=== PATIENT | female | born 1950 | race Caucasian/White ===

== ENCOUNTER 2017-08-28 13:00 | Outpatient (RCR) | payer MEDICARE, SELFPAY ==
--- NOTE | 2017-07-16 14:00 | HP.PTEVAL_ITS ---
Patient's Visit Information ANGEL BARBOZA is a 66 year old F referred to Physical Therapy by Chandu Ortiz MD with a diagnosis of s/p L anterior approach HAYLIE 07/10. Date of Evaluation: 07/16/17 Physical Therapist: HENRIQUE TriplettT, OC - Visit Plan Frequency: 1x/Week Duration: 4-6 Weeks Plan: weekly(pt choice due to copay) to progress HEP(NWB/flex next session), then WB then fucntional. Monitor edema, ROM, flexibility, gait. - Subjective Subjective: L HAYLIE 07/10/17. R one done in March. Pain in L hip has been 4- 6/10 and fairly constant. Has tried not to use pain pills but on them more lately which has helped. Using walker at times. But dragging it around alot also. Sleeping is good in chair. Not in bed yet, gets back pain with bed. HEP : SLR, HS. No painnful problem. Basic ADLs are done by herself. Has steps with railing and did them OK today with rail. Spends time taking care of hubby. - Pain L hip anterior lateral Pain Intensity (Out of 10): 4 Pain Intensity Range: 4, 6 - Objective Walks with walker I PWB L. Walks without walker I. short steps, pelvis rotates back to the right. Steps reciprocal but sore on L ascending and descending, recommended using L. Transfers are I and within precauiton( anterior approach. Skin anteriorly around incision is hard and edematous but no tender. - homans B. AROM WFL R hipa nd knee(0-120) and ankle. L ankle WFL , knee 0-117 and hip 100 flexion, 25 abd, neutral extension. strength L hip 3/5 , knee 4/5 adn ankle 4+/5, R side 4+/5 throughout. reflexes 2/3 patella and achilles. Sensation WNL to gross light touch , lateral/anterior L hip slightly numb to touch. LB AROM stiff and very little exension and flexion. HS and quad mod tight. - Goals Goal 1:: Walk into and out of PT without AD I and safely withotu soreness. Goal Time Frame: 4-6 Weeks Goal 2:: Steps reciprocally without pain or railing. Goal Time Frame: 4-6 Weeks Goal 3:: I approp HEP to continue progress I. Goal Time Frame: 4-6 Weeks Goal 4:: Sleep in bed without pain Goal Time Frame: 4-6 Weeks - Rehabilitation Potential Physical Therapy Diagnosis: L anterior approach HAYLIE Rehabilitation Potential: Good - Anticipated Interventions Patient/Client Instruction: Educate patient on: Condition, Plan of Care For the Purpose of:: To decrease pain, To increase ROM, To improve ability of physical actions for home/community/work/leisure, To improve gait and locomotor functions Therapeutic Exercise to Include: Strength training, Flexibilty training, Gait and locomotor training, Passive ROM, Active ROM For the Purpose of:: To decrease pain, To increase ROM, To improve ability of physical actions for home/community/work/leisure, To improve gait and locomotor functions Cryotherapy (ice pack, ice massage): Yes For the Purpose of:: To decrease swelling/inflammation Thank you for the opportunity to evaluate your patient. For Medicare and Medicare HMO plans, please review the plan of care and approve it. It will need to be FAXED BACK to us at [phone] for Medicare purposes. Please let me know if there are questions or concerns regarding this plan of care. Physician Signature: Date:
--- NOTE | 2017-08-07 13:38 | HP.PTREVAL_ITS ---
Chandu Ortiz MD, It has been my pleasure to treat ANGEL BARBOZA over the last 4 visits for s/p L anterior approach HAYLIE 07/10. Please see the progress note below for an update on the physical therapy plan of care! Subjective: Was frustrated as she has had a bad day here and there with pain. feels good after exercises. Forgets tylenol at times and if is on it all day than it really hurts. Pain is inside L hip. Better with pain meds. Then she will have a couple good days until she forgets to take pm tylenol again. Sees doctor in mid August. Sleep is OK, but stiff every morning as she sleeps in chair to be by . Loosens up quickly in am. Bassic ADLs and cleaning are good adn without pain. Washed car without a problem. Hobbies and basement steps are good. Stretches seem to help side of leg Objective/Function: L hip ext rotation 38 degrees vs 50 on R. Tender on piriformis L. Gait is I but JAY is still wide and steps short. Steps are reciprocal without a rail, slightly weaker L vs. R. Transfers on and off table I and rolls I. PT DOING EXCELLENT, STRENGTH AND ROM IMPROVING. WILL CONTINUE TO WORK ON THESE AT HOME. GAIT IS STILL WIDE JAY AND SHORT STEPS UNTIL CUED. Plan Plan: f/u three weeks to check gait and discharge. PT TO WORK ON HEP UNTIL THEN AND CALL IF CONCERNS. Goals Goal 1:: Walk into and out of PT without AD I and safely withotu soreness. Goal Time Frame: 4-6 Weeks Goal Progress: Goal Met Goal 2:: Steps reciprocally without pain or railing. Goal Time Frame: 4-6 Weeks Goal Progress: Goal Met Goal 3:: I approp HEP to continue progress I. Goal Time Frame: 4-6 Weeks Goal Progress: Goal Met Goal 4:: Sleep in bed without pain Goal Time Frame: 4-6 Weeks Anticipated Interventions Patient/Client Instruction: Educate patient on: Condition, Plan of Care For the Purpose of:: To decrease pain, To increase ROM, To improve ability of physical actions for home/community/work/leisure, To improve gait and locomotor functions Therapeutic Exercise to Include: Strength training, Flexibilty training, Gait and locomotor training, Passive ROM, Active ROM For the Purpose of:: To decrease pain, To increase ROM, To improve ability of physical actions for home/community/work/leisure, To improve gait and locomotor functions Cryotherapy (ice pack, ice massage): Yes For the Purpose of:: To decrease swelling/inflammation Please do not hesitate to contact me at [phone] by phone or Fax: if you have questions or concerns regarding this new plan of care! Sincerely, Ted Ackerman, DPT, OC
--- NOTE | 2017-08-28 13:35 | HP.PTDCSUM ---
HP - PT D/C Summary It has been my pleasure to treat ANGEL BARBOZA under orders from Chandu Ortiz MD, for the diagnosis of s/p L anterior approach HAYLIE 07/10 for a total of 5 visit(s). Discharge Date: 08/28/17 Please see the following information for a summary of their discharge status. - Subjective Subjective: Pain is not an issue but not 100% comfortable. Has been up to 4/10 at times with squats or tandem stance. Sleep is good. Still appears stiff when walking. Still not 100% confidence in it. - Pain L hip anterior lateral Pain Intensity (Out of 10): 0 - Objective Objective/Function: ROM L hip doing well, ext limited to about 6 degrees and tightness in anterior is limiting factor. abduction is 20 degrees. ext rotation 45 degrees. Strength is 4+/5 in flexion, and 4/5 in abd and ext. 4+ in knee flex adn ext on L. Steps are reciprocal without railing but needs railing for comfort. Gait is normalizing but still tends wide JAY, tightness in ITB is limiting factor.OVERALL DOING EXCELLENT WITH HEP AND WILL CONTINUE I. - Goals Goal 1:: Walk into and out of PT without AD I and safely withotu soreness. Goal Progress: Goal Met Goal 2:: Steps reciprocally without pain or railing. Goal Progress: Goal Met Goal 3:: I approp HEP to continue progress I. Goal Progress: Goal Met Goal 4:: Sleep in bed without pain Goal Progress: N/A - Plan Plan: D/C TO EHEP - D/C Information Discharge Comments: d/c TO heP. tIGHTNESS IN itb AND HIP FLEXOR ARE MAIN LIMITING FACTORS. If there are questions or concerns regarding this patient's physical therapy, please feel free to call me at [phone]. Thank you for the referral of this patient. Sincerely, Ted Ackerman, DPT, OC
== END 2017-08-28 19:00 | disposition home or self-care (01) ==
LOC: PT 13:00
PROVIDERS: Family Provider Family Medicine; PCP Family Medicine; Visit Provider Specialist
DX: M16.12 Unilateral primary osteoarthritis, left hip (principal)
CPT/HCPCS: 97110; 97162; 97530

== ENCOUNTER → 2018-06-06 06:54 | Outpatient (CLI) | payer MEDICARE, SELFPAY ==
--- NOTE | 2018-06-06 11:07 | STRESSREP ---
Stress Test Report Exercise myocardial perfusion stress test. 67-year-old lady with a history of coronary artery disease previous angioplasty and stenting status post carotid bypass surgery in 2007. Resting EKG demonstrates sinus bradycardia with a rate of 51 bpm normal intervals are noted resting blood pressure is 122/76 mmHg. The patient exercised according to regular Wilson protocol for a total duration of 8 minutes. The maximum heart rate attained was 141 bpm which was 93% of maximum predicted heart rate the maximum workload was 10.1 metabolic equivalents. Patient completed stage III of the Wilson protocol with 2 minutes. At rest there were no ST or T wave changes were noted ischemia at peak exercise no ST or T wave changes were noted which suggested ischemia. Patient had chest discomfort at the beginning of the test and it persisted throughout the test. No other major changes were noted. Myocardial perfusion protocol. 10.9 mCi of technetium 99m sestamibi was injected at rest. The patient exercised according to regular Wilson protocol for 8 minutes attaining 10.1 metabolic equivalents at peak exercise 32.2 mCi of technetium 99m sestamibi was injected stress images were obtained stress and rest images were reconstructed and compared in the short axis vertical long horizontal long axis. Gated images were also obtained Perfusion SPECT analysis: Review of the stress images demonstrate normal uptake of tracer noted in all areas of the myocardium. The resting images similarly demonstrate normal uptake of tracer noted in all areas of the myocardium. No areas of reversibility are noted suggest ischemia and no previous infarct is noted. Gated SPECT analysis: The gated ejection fraction is noted to be 85%. Conclusion: Normal exercise myocardial perfusion stress test at a high workload. Preserved ejection fraction. Mild chest discomfort of questionable significance.
== END ==
PROVIDERS: Family Provider Family Medicine; PCP Family Medicine; Referring Provider Internal Medicine Cardiovascular Disease; Visit Provider Internal Medicine Cardiovascular Disease
DX: I25.10 Atherosclerotic heart disease of native coronary artery without angina pectoris (principal); E78.5 Hyperlipidemia, unspecified; I25.5 Ischemic cardiomyopathy; I10 Essential (primary) hypertension; R07.9 Chest pain, unspecified
CPT/HCPCS: 78452; 93017; A9500; A4216

== ENCOUNTER → 2018-07-21 10:14 | Outpatient (CLI) | payer MEDICARE, SELFPAY ==
[2018-07-03 13:50] VITALS: BMI 28.0
--- NOTE | 2018-07-21 10:18 | RAD_ITS ---
STUDY: X-RAY CHEST REASON FOR EXAM: Female, 67 years old. Pre-op for heart catheter TECHNIQUE: PA and lateral views of the chest. COMPARISON: 06/24/08 FINDINGS: The lungs are clear and expanded. There is no demonstrated pleural abnormality. Sternal cerclage wires and vascular clips are present from a prior sternotomy and coronary artery bypass graft procedure (CABG). Mild cardiomegaly. Normal mediastinum and chuck. Normal visualized pulmonary arteries. Normal visualized aortic arch and descending thoracic aorta. Normal visualized thoracic spine. Normal visualized ribs, clavicles, and shoulders. There is no demonstrated abnormality of the visualized soft tissue structures of the upper abdomen. RAD/Chest PA and Lateral IMPRESSION: No acute cardiopulmonary disease Electronically Signed: Naveen Young DO at 10:44 EST Tel , Service support ,
[2018-07-21 11:55] LABS: Prothrombin Time (Protime)PT. 12.8 SECONDS (11.7-14.9)
[2018-07-21 11:56] LABS: Partial Thromboplast Time 24.7 Seconds (24.1-36.2)
[2018-07-21 12:02] LABS: Absolute Lymphocyte Count 2.92 X10^3/ul (0.83-4.51); Absolute Neutrophil Count 3.8 X10^3/uL (2.0-7.7); Basophil# 0.02 X10^3/uL; Basophil% 0.3 % (0-1); Eosinophils% 2.7 % (0-5); Hematocrit 41.3 % (37-47); Hemoglobin 13.5 g/dl (12.0-15.0); Lymphocyte # 2.92 X10^3/ul (4.0); Lymphocyte % 39.4 % (19-41); Mean Corp Hgb Conc 32.7 g/gl (32-36); Mean Corpuscular Hgb 29.9 pg (27.0-32.0); Mean Corpuscular Volume 91.4 fL (81-99); Mean Platelet Vol. 9.6 fl (6.2-12.0); Monocyte# 0.46 X10^3/uL; Monocyte% 6.2 % (0-10); Neutrophil % 51.3 % (47-70); Platelet Count 265 K/mm3 (150-450); RBC Distribution Width CV 13.1 % (11.6-14.6); RBC Distribution Width SD 43.5 fl (35.1-43.9); Red Blood Count 4.52 M/mm3 (4.2-5.4); White Blood Count 7.4 K/mm3 (4.4-11.0)
[2018-07-21 12:05] LABS: Anion Gap 8 (5-15); BUN 15 mg/dL (7-18); Chloride 109 mmol/L (98-107); Creatinine, Serum 0.75 mg/dL (0.55-1.02); EST Glomerular Filtration Rate 81 mL/min (>60); Est Glom Filt Rate - Afr Amer 98 mL/min (>60); Glucose 102 mg/dL (74-106); Potassium 4.5 mmol/L (3.5-5.1); Sodium Level 143 mmol/L (136-145)
[2018-07-21 12:12] LABS: POSITIVE COUNT NO; POSITIVE DIFFERENTIAL NO; POSITIVE MORPHOLOGY NO
== END ==
PROVIDERS: Family Provider Family Medicine; PCP Family Medicine; Referring Provider Physician Assistant Medical; Visit Provider Physician Assistant Medical
DX: R07.9 Chest pain, unspecified (principal); I25.10 Atherosclerotic heart disease of native coronary artery without angina pectoris; I25.5 Ischemic cardiomyopathy; I10 Essential (primary) hypertension; E78.5 Hyperlipidemia, unspecified; I45.10 Unspecified right bundle-branch block
CPT/HCPCS: 36415; 71046; 80048; 85025; 85610; 85730

== ENCOUNTER 2018-07-28 09:50 | Day surgery (SDC) | payer MEDICARE, SELFPAY ==
[2018-07-03 13:50] VITALS: BMI 28.0
[2018-07-25 10:36] VITALS: BMI 28.0
--- NOTE | 2018-07-28 12:24 | CL.D_ITS ---
Patient Name: ANGEL BARBOZA Study Date: 07/28/2018 Performing: Salo Vasquez MD Ht: 66 inches 167.64 cm : 1950 Wt: 173.99 lbs 78.92 kg Age: 67 Gender: female BSA: 1.89 PROCEDURE(S) PERFORMED NU30-MOM/COR/LV/CABG CLINICAL PROFILE AND INDICATIONS Indications: Worsening Angina Heart Failure: None Stress/Imaging Stress Test w/SPECT MPI: Yes Result: NegativeStress Test with SPECT MPI: Negative CAD Presentations: Stable angina. CONCLUSIONS Non obstructive coronary arteries previously placed stent and bypass grafts are patent RECOMMENDATIONS Risk factor modification Medical therapy DESCRIPTION OF PROCEDURE The patient arrived to the procedure lab. The risks and benefits of the procedure as well as a full d escription of our services here and current unavailability of surgical backup were fully explained to the patient and/or their significant other prior to the catheterization. The Timeout was completed, verifying the correct patient and procedure. The patient's procedural site was prepped and draped in the usual fashion. Local anesthetic was given subcutaneously to right groin region with Lidocaine 2%. Using a modified Seldinger technique, arterial access was obtained via the right femoral artery, a 5 Fr sheath was inserted. Left Coronary Artery selective angiography was performed in multiple views u sing a 5 Fr. JL4 catheter. Right Coronary Artery selective angiography was then performed in multiple views using a 5 Fr. 3DRC (Candelario) catheter. Saphenous Vein graft to the Circumflex selective angio graphy was performed in multiple views using a 5 Fr. 3DRC (Candelario) catheter. Left internal mammary artery graft to the LAD selective angiography was performed in multiple views using a 5 Fr. 3DRC (Candelario) catheter. Left Ventriculography was performed in DORADO projection using a 5 Fr. Pigtail catheter. LV to AO pullback pressures were then recorded.The arterial sheath was pulled and a Mynx closure device was deployed for hemostasis CORONARY ANGIOGRAPHY DOMINANCE: Right Dominant LEFT HEART ASSESSMENT Left Ventricular Ejection Fraction: by LV Gram 60 % Normal LV wall motion Normal Left Ventricular systolic function LEFT MAIN: Angiographically normal LEFT ANTERIOR DECENDING ARTERY: MID LAD: is occluded CIRCUMFLEX ARTERY: MID CIRC: Previously placed stent is patent RAMUS: is occluded RIGHT CORONARY ARTERY: Mild luminal irregularities less than 30% GRAFTS: HENDRICKSON graft to the Mid LAD is patent Saphenous Vein graft to the Ramus is patent COMPLICATIONS No Complications PROCEDURE MEDICATIONS Versed 1 mg IV Versed 1 mg IV Oxygen: 2 L/min via nasal cannula SUMMARY OF HEMODYNAMIC DATA Time AIR REST ECG 11:25:41 AO 129/52 (83) SA 11:55:04 LV 122/0, 16 12:07:51 LV 129/0, 19 12:07:59 LV 125/0, 18 12:09:09 LVp 130/1, 16 12:09:15 AOp 123/48 (77) 12:09:20 12:22:32 Signed By Salo Vasquez MD On 07/28/2018 12:23:49 PM Salo Vasquez MD
== END 2018-07-28 14:55 | disposition home or self-care (01) ==
LOC: CLSP 09:52
PROVIDERS: Family Provider Family Medicine; PCP Family Medicine; Referring Provider Physician Assistant Medical; Visit Provider Physician Assistant Medical
DX: I25.119 Atherosclerotic heart disease of native coronary artery with unspecified angina pectoris (principal); I10 Essential (primary) hypertension; E78.00 Pure hypercholesterolemia, unspecified; I25.5 Ischemic cardiomyopathy; I45.10 Unspecified right bundle-branch block; I34.0 Nonrheumatic mitral (valve) insufficiency; Z95.1 Presence of aortocoronary bypass graft; Z79.82 Long term (current) use of aspirin; Z79.899 Other long term (current) drug therapy
CPT/HCPCS: 93459; 99152; 99153; C1760; J7040; Q9967

== ENCOUNTER → 2021-06-12 13:39 | Outpatient (CLI) | payer MEDICARE, SELFPAY ==
--- NOTE | 2021-06-12 13:44 | ECHOCS_ITS ---
Reason For Study: s/p CABG Procedure This was a 2D Doppler, Color Flow transthoracic echocardiogram. The study was technically difficult. Contrast injection was performed. Exam performed in department. Left Ventricle Normal LV size. Left ventricular systolic function is normal. The estimated ejection fraction is 60 %. No regional wall motion abnormalities noted. Right Ventricle Normal RV size. Normal systolic function. Atria Normal left atrium. Normal right atrium. Mitral Valve Normal mitral valve. Tricuspid Valve Normal tricuspid valve. Mild tricuspid valve insufficiency. Pulmonary artery systolic pressure is 36 mmHg. Aortic Valve Trisinus/trileaflet aortic valve. Mild focal aortic valve calcification. Mild (1+) aortic valve insufficiency. Pulmonic Valve Normal pulmonic valve. Great Vessels Normal aortic root. The pulmonary artery is normal size. Normal inferior vena cava. Pericardium/Pleural No pericardial effusion. Medication 22 gauge I.V. with prn adaptor inserted into right arm. Diluted definity 1.4ml given slow IV push to enhance endocardial definition. MMode/2D Measurements & Calculations LVIDd: 4.2 cm IVSd: 1.0 cm LVOT diam: 2.0 cm LVIDs: 2.5 cm LVPWd: 1.1 cm FS: 41.3 % LVOT area: 3.0 cm2 Ao root diam: 3.0 cm LAV(MOD-bp): 47.1 ml LA A4 area: 17.0 cm2 LA dimension: 4.3 cm LAV(MOD-bp) Indexed: 26.6 ml/m2 LAV(MOD-sp2): 51.1 ml LAV(MOD-sp4): 42.4 ml RA A4 area: 15.5 cm2 Time Measurements MV dec time: 0.32 sec Doppler Measurements & Calculations MV E max nigel: 136.0 cm/sec Lat Peak E' Nigel: 9.0 cm/sec Med Peak E' Nigel: 8.0 cm/sec MV A max nigel: 117.5 cm/sec E/E' lat: 15.0 E/E' med: 17.0 MV E/A: 1.2 MV V2 max: 145.4 cm/sec MV P1/2t max nigel: 145.4 cm/sec Ao V2 max: 228.4 cm/sec MV max P.5 mmHg MV P1/2t: 93.8 msec Ao max P.9 mmHg MV V2 mean: 58.4 cm/sec MV dec slope: 454.1 cm/sec2 Ao V2 mean: 144.4 cm/sec MV mean P.9 mmHg Ao mean P.9 mmHg MV V2 VTI: 59.4 cm MVA(P1/2t): 2.3 cm2 Ao V2 VTI: 55.1 cm MVA(VTI): 1.9 cm2 MICHAEL(I,D): 2.0 cm2 MICHAEL(V,D): 1.9 cm2 AI max nigel: 412.6 cm/sec LV V1 max: 148.2 cm/sec MR max nigel: 528.0 cm/sec AI max P.1 mmHg LV V1 max P.8 mmHg MR max P.5 mmHg AI dec slope: 162.7 cm/sec2 LV V1 mean P.1 mmHg AI P1/2t: 743.0 msec LV V1 mean: 92.3 cm/sec LV V1 VTI: 37.2 cm SV(LVOT): 111.2 ml PA V2 max: 126.2 cm/sec PI end-d nigel: 94.4 cm/sec TR max nigel: 282.1 cm/sec TR max P.8 mmHg ECHO/Echo Complete W/ Contrast Interpretation Summary Normal LV size. Left ventricular systolic function is normal. The estimated ejection fraction is 60 %. Pulmonary artery systolic pressure is 36 mmHg. Contrast injection was performed. Ordering Physician: Salo Vasquez Referring Physician: Salo Vasquez Performed By: Otis Ochoa RCS
== END ==
PROVIDERS: PCP Family Medicine; Referring Provider Internal Medicine Cardiovascular Disease; Visit Provider Internal Medicine Cardiovascular Disease
DX: I34.0 Nonrheumatic mitral (valve) insufficiency (principal)
CPT/HCPCS: 93306; Q9957; A4216; C8929; J3490

== ENCOUNTER 2022-04-12 12:44 | Outpatient (RCR) | payer MEDICARE, SELFPAY ==
--- NOTE | 2022-04-12 14:20 | HP.OTEVAL ---
Patient's Visit Information ANGEL BARBOZA is a 71 year old F, referred to Occupational Therapy by Dr. 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 Date of Evaluation: 04/12/22 Occupational Therapist: July Chu, OTR/Shiva, CHT - Subjective This 71 year old female was seen for OT eval with dx. of unilateral primary osteoarthrosis of 1st carpometacarpal joint- pt states she gets pain and numbness. pt states she is left handed but right thumb is more painful and she has tingling/numbness at night and with positions of crossing her arms- pt states thumb IF and MF are the ones that tingle the most. pt is very active and does a lot of card playing (holding cards for long periods of times)- along with holding word search puzzle books (with right so she can write with her left) pt states little strength for ADLs if something requires a pinch with her left hand- pt would like to know what more she can do to decrease pain/tingling and return to using her hand with ADLs and IADLs. - Pain right thumb 2 Pain Intensity Range: 4 - ROM Wrist: right 45/65 left 60/60 CMC: right 10 left 0 MP: right 55 left 70 IP: right 65 left 75 ROM Comments: pt demo with right cmc shoulder sign - Strength Regional Agronomist: right 55# left 55# Lateral Pinch: right unable left 4# Tripod Pinch: right unable left 4# - Quick DASH-Disab of Arm,Shoulder& Hand Quick DASH Score: 52.2725 - Goals Goal:: pt will demo a increase in right de icer strength by 10# or greater to increase ind. with ADL and IADLs by d/c. Goal:: pt will report pain no greater than 1/10 with use of right hand with ADLs and IADls by d/c Goal:: Pt will demo understanding of joint protection and ergonomics when performing BADLs and IADLs by d/c. Pt will demo understanding of adaptive Equipment use to decrease stress on joints to allow pt to perform BADSL and IADLS at NILS level. Goal:: Pt will demo understanding of using supportive bracing 80% of work day/ADLS to decrease stress on tendon origin to allow healing and decrease pain by end of 2nd session. - Rehabilitation General Assessment: pt demo with + cmc arthritis of right 1st carpometacarpal joint- pt demo + shoulder sign indication of thumb instability increasing pain and decreasing pts IND with ADLs and IADls. pt would benefit from skilled OT services 1-3 visits to ensure understanding of joint protection- orthosis use and thumb stabilization exercises. Pt would benefit from custom orthosis (one made for night and heavy work tasks). pt was given handouts and demo understanding to [facility]. pt to call with questions/concerns. Rehabilitation Potential: Good - Anticipated Interventions Strengthening, Orthoses, Joint Protection/Energy Conservation, Ergonomic Education, Education re assistive Equipment, Education re Diagnosis, Home Program - Visit Plan Frequency: 1x/Week Duration: 2-4 Weeks TEXT: Thank you for the opportunity to evaluate your patient. For Medicare and Medicare HMO plans, please review the plan of care and approve it. It will need to be FAXED BACK to us at [phone] for Medicare purposes. Please let me know if there are questions or concerns regarding this plan of care. Physician Signature: Date:
--- NOTE | 2022-06-26 14:28 | HP.OT.NRP ---
ANGEL BARBOZA was seen in my office for initial evaluation on 04/12/22. The following Plan of Care was established for this patient: Initial Frequency: 1x/Week Initial Duration: 2-4 Weeks Anticipated Interventions: Strengthening, Orthoses, Joint Protection/Energy Conservation, Ergonomic Education, Education re assistive Equipment, Education re Diagnosis, Home Program This patient was last seen in our office 04/12/22. Pertinent comments regarding their Occupational therapy will appear below: pt was seen for OT eval only- no further apt have been scheduled and due to time lapse in services pt d/c. At this point I will be discontinuing this patient from occupational therapy. I would be happy to see this patient again in the future if found appropriate by the physician. Thank you! July Chu, OTR/L, CHT
== END 2022-04-12 19:00 | disposition home or self-care (01) ==
LOC: OT 12:44
PROVIDERS: PCP Family Medicine; Referring Provider Orthopaedic Surgery; Visit Provider Orthopaedic Surgery
DX: M18.11 Unilateral primary osteoarthritis of first carpometacarpal joint, right hand (principal)
CPT/HCPCS: 97166; 97530

== ENCOUNTER 2022-06-14 10:13 | Outpatient (CLI) | payer MEDICARE, SELFPAY | END 2022-06-14 23:59 | disposition home or self-care (01) | PROVIDERS: PCP Family Medicine; Referring Provider Internal Medicine Cardiovascular Disease; Visit Provider Internal Medicine Cardiovascular Disease | DX: R00.2 Palpitations (principal); R00.1 Bradycardia, unspecified | CPT/HCPCS: 93225; 93226 ==

== ENCOUNTER → 2023-01-10 | Outpatient (CLI) | payer MEDICARE, SELFPAY ==
--- NOTE | 2023-01-10 06:27 | CDU_ITS ---
Reason For Study: BRUIT Rt. Velocities/BP Lt. Velocities/BP Prox CCA 104.0/11.7 cm/sec. Prox CCA 125.8/14.4 cm/sec. Mid CCA 75.4/12.7 cm/sec. Mid CCA 105.8/18.1 cm/sec. Dist CCA 57.8/8.4 cm/sec. Dist CCA 68.6/15.8 cm/sec. Prox ICA 192.4/54.1 cm/sec. Prox ICA 97.9/21.2 cm/sec. Mid ICA 136.5/26.8 cm/sec. Mid ICA 130.8/30.3 cm/sec. Dist ICA 93.5/24.1 cm/sec. Dist ICA 96.1/30.3 cm/sec. Rt. ICA/CCA = 192.4/75.4=2.6. Lt. ICA/CCA = 130.8/105.8=1.2. Prox ECA 69.9/7.3 cm/sec. Prox ECA 113.1/12.6 cm/sec. Rt. Vert. 56.3/16.7 cm/sec. Lt. Vert. 49.5/13.9 cm/sec. Right Extracranial There is intimal thickening but no significant atherosclerotic plaque noted in the right common carotid artery. There is heterogeneous, irregular atherosclerotic plaque noted in the right internal carotid artery. There is intimal thickening but no significant atherosclerotic plaque noted in the right external carotid artery. Antegrade flow is noted in the right vertebral artery. Left Extracranial There is intimal thickening but no significant atherosclerotic plaque noted in the left common carotid artery. There is heterogeneous, irregular atherosclerotic plaque noted in the left internal carotid artery. There is no significant atherosclerotic plaque noted in the left external carotid artery. Antegrade flow is noted in the left vertebral artery. Procedure Carotid Duplex [id number]. This is a Carotid Duplex examination using B-mode, color flow and specral Doppler. Exam performed in department. VL/Carotid Duplex Ultrasound Interpretation Summary Moderate (50-69%) stenosis right extracranial internal carotid. Moderate (50-69 %) stenosis left extracranial internal carotid. Patent and antegrade vertebrals bilaterally. Mod erate (50-69%) stenosis right extracranial internal carotid. Moderate (50-69%) stenosis left extracranial internal carotid. Patent and antegrade vertebrals bilaterally. Ordering Physician: Salo Vasquez Referring Physician: Jose A Sebastian Performed By: Asya Wade, CHRISTINA, RVT
--- NOTE | 2023-01-10 17:25 | STRESSREP_ITS ---
Stress Test Report Exercise myocardial perfusion stress test. 72-year-old lady with a history of coronary artery disease and chest pain Stress protocol: Resting EKG demonstrates sinus bradycardia with a rate of 46 bpm and a right bundle branch block and resting blood pressure is 128/70 mmHg. The patient exercised according to the regular Wilson protocol for a total duration of 9 minutes attaining a maximum heart rate of 133 bpm which was 91% of maximum predicted heart rate; the maximum workload was 10.1 metabolic equivalents. At rest there were no ST or T wave changes noted to suggest ischemia and at peak exercise upsloping ST changes only were noted which did not meet the criteria for ischemia. No clinical angina was noted the test was terminated due to the target heart rate being achieved/fatigue. Mild chest discomfort was noted at peak exercise. The peak blood pressure was 174/62 mmHg. Rate-pressure product was 23,100. Myocardial perfusion protocol. 11.2 mCi of technetium 99m sestamibi was injected at rest. The patient exercised according to regular Wilson protocol for total duration of 9 minutes and at peak exercise 33.8 mCi of technetium 99m sestamibi was injected stress images were obtained stress and rest images were reconstructed in comparing the short axis vertical long and horizontal long axis. Gated images were also obtai naun. Perfusion SPECT analysis: Review of the stress images demonstrate normal uptake of tracer noted in all areas of the myocardium. The resting images similarly demonstrate normal uptake of tracer noted in all areas of the myocardium. No areas of reversibility are noted to suggest ischemia no previous infarct was noted. Gated SPECT analysis: The gated ejection fraction is 76%. Conclusion: Normal exercise myocardial perfusion stress test at a high workload Preserved ejection fraction.
== END | disposition home or self-care (01) ==
PROVIDERS: PCP Family Medicine; Referring Provider Internal Medicine Cardiovascular Disease; Visit Provider Internal Medicine Cardiovascular Disease
DX: R09.89 Other specified symptoms and signs involving the circulatory and respiratory systems (principal); Z95.1 Presence of aortocoronary bypass graft
CPT/HCPCS: 78452; 93017; 93880; A9500; A4216

== ENCOUNTER 2023-11-04 10:30 | Outpatient (RCR) | payer MEDICARE, SELFPAY ==
--- NOTE | 2023-10-01 13:34 | HP.PTEVAL ---
Patient's Visit Information Visit Information Visit Information: ANGEL BARBOZA is a 73 year old F referred to Physical Therapy by Dr. Gerard Russ DO with a diagnosis of L shoulder pain impingement syndrome. Date of Evaluation: 10/01/23 Physical Therapist: Ted Ackerman, DPT, OCS, CSCS Visit Plan Frequency: 2x /Week Duration: 4-6 Weeks Plan: 2x/week for 4-6 for 1. US L supraspinatus nonthermal, CFM as needed 2. Postural and RC strenggthening and correction 3. pec stretches 4. manual joint mobs distraction and grade 1-2 Tens if needed for pain at rest with ice. Subjective Subjective: L shoulder pain but they both hurt. Chronic pain. Was on voltarin for a while. Did not help. L shoulder has hurt for 4-5 yrs. Worsening. Always hurts. Sleep is not interrupted but she is aware of it. X ray was clear, needs MRI and needs PT. Sometimes hurts down to elbow. Basic ADLs: I, getting dressed , modifies it. Not employed. Hobbies: puzzles are going OK. Concerned about mowing yard with tractor and push mowing when it is needed, Pain L shoulder: Pain Intensity (Out of 10): 5 Pain Intensity Range: 6 and 8 Comment: worse with swimming exercises Objective Objective: Posture is forward shoulder adn head positioning. Tender in supraspinatus on L side. + HK, + neer, - ext rotation lag, - drop arm. - c/s compression. Cervical aROM WFL and without pain. Scapular AROM WNL B. elbow and wrist aROM WNL and without pain. B shoulder AROM WNL but pain L side end of flexion/abd/er/ir. strength 4-/5 B shoulder but L painful with flexion, abd and er. reflexes 2/3 bi and triceps. Sensation UE WNL to gross light touch. Balance/Special Test Scores Quick DASH Score: 27.5000 Goals Goal 1:: Full aROM L shoulder without pain Goal Time Frame: 4-6 Weeks Goal 2:: Patient able to get dressed without noticing L shoulder Goal Time Frame: 4-6 Weeks Goal 3:: Sleep without interruption at night Goal Time Frame: 4-6 Weeks Goal 4:: Patient feel 90% better in overall activities with shoulder Goal Time Frame: 4-6 Weeks Goal 5:: Quickdash score 15 or better Goal Time Frame: 4-6 Weeks Rehabilitation Potential Physical Therapy Diagnosis: L shoulder discomfort limiting comfortable function Rehabilitation Potential: Good Anticipated Interventions Patient/Client Instruction: Educate patient on: Condition and Plan of Care For the Purpose of:: To decrease pain, To increase ROM, To improve nutrient delivery to tissue, To improve muscle performance and motor function, To increase tolerance to activity/condition/position and To improve gait and locomotor functions Therapeutic Exercise to Include: Strength training, Postural training, Flexibilty training, Passive ROM and Active ROM For the Purpose of:: To decrease pain, To increase ROM, To improve nutrient delivery to tissue, To improve muscle performance and motor function and To increase tolerance to activity/condition/position Manual Therapy Techniques to Include: Mobilization, Passive ROM and Soft tissue mobilization For the Purpose of:: To decrease pain, To decrease swelling/inflammation, To increase ROM and To improve nutrient delivery to tissue TENS: Yes Cryotherapy (ice pack, ice massage): Yes Ultrasound (thermal/non thermal): Yes (nonthermal) For the Purpose of:: To decrease pain, To decrease swelling/inflammation, To increase ROM and To improve nutrient delivery to tissue Text: Thank you for the opportunity to evaluate your patient. For Medicare and Medicare HMO plans, please review the plan of care and approve it. It will need to be FAXED BACK to us at [phone] for Medicare purposes. For Medicare only, by signing this I certify the plan of care. Please let me know if there are questions or concerns regarding this plan of care. Physician Signature: Date:
--- NOTE | 2023-11-04 10:50 | HP.PTDCSUM ---
Discharge Summary D/C summary: It has been my pleasure to treat ANGEL BARBOZA referred by Dr. Greard Russ DO, with the diagnosis of L shoulder pain impingement syndrome for a total of 8 visit(s). Discharge Date: 11/04/23 Please see the following information for a summary of their discharge status. Subjective Subjective: Shoulder is doing great. I did all my homework. No real pain, alot better. Has some pain 1/10 and manageable. IR much better. Activities are pretty normal, has not been golfing. Doing water exercises. It has helped. Pain L shoulder: Pain Intensity (Out of 10): 3 Overall Improvement % Improvement: 80 Objective Objective/Function: Full aROM symmetrical to R(right one shows much crepitus). strengfth is symmetrical in flexion, abd, IR and bi/tri to R at 4/5 and er slightly weaker at 4- L and 4 R. Only pain is with er in 90 abducted position and it is transient Goals Goal 1:: Full aROM L shoulder without pain Goal Progress: Goal Met Goal 2:: Patient able to get dressed without noticing L shoulder Goal Progress: Goal Met Goal 3:: Sleep without interruption at night Goal Progress: Goal Met Goal 4:: Patient feel 90% better in overall activities with shoulder Goal Progress: 80% Goal 5:: Quickdash score 15 or better Goal Progress: Goal Met Plan Plan: d/c to [facility] D/C Information Discharge Comments: She cancelled visit with doctor as she is doing very well. Will continue via [facility] and contact doctor office if worsens. d/c sentence: If there are questions or concerns regarding this patient's physical therapy, please feel free to call me at [phone]. Thank you for the referral of this patient. Sincerely, Ted Ackerman, DPT, OCS, CSCS Balance/Gait/Functional tests Balance/Special Test Scores Quick DASH Score: 6.8175 Improvement % Improvement: 80
== END 2023-11-04 19:00 | disposition home or self-care (01) ==
LOC: PT 10:30
PROVIDERS: PCP Family Medicine; Referring Provider Orthopaedic Surgery; Visit Provider Orthopaedic Surgery
DX: M75.42 Impingement syndrome of left shoulder (principal); M25.512 Pain in left shoulder
CPT/HCPCS: 97035; 97110; 97161; 97530

== ENCOUNTER → 2024-01-21 | Outpatient (CLI) | payer MEDICARE, SELFPAY ==
--- NOTE | 2024-01-21 09:42 | CDU_ITS ---
Reason For Study: Bilateral Carotid Bruit Rt. Velocities/BP Lt. Velocities/BP Prox CCA 118.2/17.6 cm/sec. Prox CCA 116.1/21.7 cm/sec. Mid CCA 98.6/18.8 cm/sec. Mid CCA 100.8/15.1 cm/sec. Dist CCA 83.0/19.2 cm/sec. Dist CCA 85.7/12.6 cm/sec. Prox ICA 183.0/53.4 cm/sec. Prox ICA 65.6/10.8 cm/sec. Mid ICA 128.6/32.7 cm/sec. Mid ICA 113.1/29.0 cm/sec. Dist ICA 113.3/27.7 cm/sec. Dist ICA 64.5/18.3 cm/sec. Rt. ICA/CCA = 1.9. Lt. ICA/CCA = 1.1. Prox ECA 74.4/2.0 cm/sec. Prox ECA 105.8/0.0 cm/sec. Rt. Vert. 66.0/13.1 cm/sec. Lt. Vert. 67.4/17.1 cm/sec. Right Extracranial There is intimal thickening but no significant atherosclerotic plaque noted in the right common carotid artery. There is heterogeneous, irregular atherosclerotic plaque noted in the right internal carotid artery. There is intimal thickening but no significant atherosclerotic plaque noted in the right external carotid artery. Antegrade flow is noted in the right vertebral artery. Left Extracranial There is intimal thickening but no significant atherosclerotic plaque noted in the left common carotid artery. There is heterogeneous, irregular atherosclerotic plaque noted in the left internal carotid artery. There is heterogeneous, irregular atherosclerotic plaque noted in the left external carotid artery. Antegrade flow is noted in the left vertebral artery. Procedure Carotid Duplex 04410. This is a Carotid Duplex examination using B-mode, color flow and specral Doppler. The exam was diagnostic. Exam performed in department. VL/Carotid Duplex Ultrasound Interpretation Summary Moderate (50-69%) stenosis right extracranial internal carotid. Mild (<50%) stenosis left extracranial internal carotid. Patent and antegrade vertebrals bilaterally. Ordering Physician: July Henley Referring Physician: Jose A Sebastian Performed By: Judah Schwartz RVT and Student
== END | disposition home or self-care (01) ==
PROVIDERS: PCP Family Medicine; Referring Provider Physician Assistant Medical; Visit Provider Physician Assistant Medical
DX: R42 Dizziness and giddiness (principal)
CPT/HCPCS: 93880

== ENCOUNTER → 2024-04-02 | Outpatient (CLI) | payer MEDICARE, SELFPAY ==
--- NOTE | 2024-04-02 13:35 | ECHOD_ITS ---
Reason For Study: MURMUR Procedure This was a 2D Doppler, Color Flow transthoracic echocardiogram. Exam performed in department. Left Ventricle Normal LV size. Left ventricular systolic function is normal. The left ventricular ejection fraction is 65 %. No regional wall motion abnormalities noted. Right Ventricle Normal RV size. Normal systolic function. Atria Normal left atrium. Normal right atrium. Mitral Valve Normal mitral valve. Mild (1+) eccentric mitral valve insufficiency. Tricuspid Valve Normal tricuspid valve. Mild (1+) tricuspid valve insufficiency. Pulmonary artery systolic pressure is 34 mmHg. Aortic Valve Trisinus/trileaflet aortic valve. Mild focal aortic valve calcification. Peak aortic valve gradient 24 mmHg. Mean aortic valve gradient 14 mmHg. Mild aortic stenosis. Pulmonic Valve Normal pulmonic valve. Great Vessels Normal aortic root. The pulmonary artery is normal size. Inferior vena cava collapse with sniff. Pericardium/Pleural No pericardial effusion. MMode/2D Measurements & Calculations LVIDd: 5.0 cm IVSd: 0.88 cm LVOT diam: 2.0 cm LVIDs: 2.4 cm LVPWd: 0.78 cm LVOT area: 3.3 cm2 RVDd: 3.8 cm FS: 51.0 % asc Aorta Diam: 3.3 cm LAV(MOD-bp): 45.6 ml LVAd ap4: 20.5 cm2 LAV(MOD-bp) Indexed: 27.4 ml/m2 LVLd ap4: 6.4 cm LAV(MOD-sp2): 40.5 ml EDV(MOD-sp4): 53.9 ml LAV(MOD-sp4): 50.2 ml EDV(sp4-el): 56.1 ml LVAs ap4: 10.6 cm2 LVLs ap4: 5.6 cm ESV(MOD-sp4): 18.0 ml ESV(sp4-el): 17.2 ml EF(MOD-sp4): 66.6 % EF(sp4-el): 69.4 % LVAd ap2: 17.3 cm2 SV(MOD-sp4): 35.9 ml SV(MOD-sp2): 23.0 ml LVLd ap2: 6.5 cm EDV(MOD-sp2): 38.2 ml EDV(sp2-el): 39.2 ml LVAs ap2: 10.2 cm2 LVLs ap2: 6.0 cm ESV(MOD-sp2): 15.2 ml ESV(sp2-el): 14.8 ml EF(MOD-sp2): 60.2 % SV(sp4-el): 38.9 ml Ao sinus diam: 3.[address] Junction: 2.0 cm LA dimension(2D): 3.5 cm LA A4 area: 18.2 cm2 RA A4 area: 13.7 cm2 TAPSE: 1.8 cm Time Measurements MV dec time: 0.25 sec Doppler Measurements & Calculations MV E max nigel: 112.8 cm/sec Lat Peak E' Nigel: 10.9 cm/sec Med Peak E' Nigel: 9.9 cm/sec MV A max nigel: 98.7 cm/sec E/E' lat: 10.3 E/E' med: 11.4 MV E/A: 1.1 MV dec slope: 447.2 cm/sec2 Ao V2 max: 245.2 cm/sec LV V1 max: 141.4 cm/sec Ao max P.1 mmHg LV V1 max P.0 mmHg Ao V2 mean: 179.0 cm/sec LV V1 mean P.1 mmHg Ao mean P.0 mmHg LV V1 mean: 92.1 cm/sec Ao V2 VTI: 60.5 cm LV V1 VTI: 34.7 cm AV (velocity ratio): 0.57 MICHAEL(I,D): 1.9 cm2 MICHAEL(V,D): 1.9 cm2 SV(LVOT): 114.1 ml PA V2 max: 123.7 cm/sec PI end-d nigel: 103.3 cm/sec PA max PG (full): 2.8 mmHg TR max nigel: 267.5 cm/sec TR max P.6 mmHg ECHO/Echo Complete Interpretation Summary Normal LV size. Left ventricular systolic function is normal. The left ventricular ejection fraction is 65 %. Mild (1+) eccentric mitral valve insufficiency. Mean aortic valve gradient 14 mmHg. Mild aortic stenosis. Ordering Physician: July Henley Referring Physician: July Henley Performed By: Germaine Lobo RDCS
== END | disposition home or self-care (01) ==
LOC: CVS 13:34
PROVIDERS: PCP Family Medicine; Referring Provider Physician Assistant Medical; Visit Provider Physician Assistant Medical
DX: R01.1 Cardiac murmur, unspecified (principal)
CPT/HCPCS: 93306

== ENCOUNTER → 2024-12-15 | Outpatient (CLI) | payer MEDICARE, SELFPAY ==
[2024-12-15 15:23] LABS: Absolute Lymphocyte Count 2.29 X10^3/uL (0.83-4.51); Absolute Neutrophil Count 3.7 X10^3/uL (2.0-7.7); Basophil# 0.04 X10^3/uL; Basophil% 0.6 % (0-1); Eosinophil# 0.13 X10^3/uL; Hematocrit 40.3 % (37-47); Hemoglobin 13.4 g/dL (12.0-15.0); Lymphocyte # 2.29 X10^3/ul (0.83-4.51); Lymphocyte % 35.1 % (19-41); Mean Corp Hgb Conc 33.3 g/dL (32-36); Mean Corpuscular Hgb 31.6 pg (27.0-32.0); Mean Platelet Vol. 10.5 fl (6.2-12.0); Monocyte# 0.34 X10^3/uL; Monocyte% 5.2 % (0-10); NRBC Flagged by Analyzer 0 % (0-5); Neutrophil # 3.72 X10^3/uL (2.7-7.7); Neutrophil % 56.9 % (47-70); Platelet Count 241 K/mm3 (150-450); RBC Distribution Width CV 12.5 % (11.6-14.6); RBC Distribution Width SD 43.7 fl (35.1-43.9); Red Blood Count 4.24 M/mm3 (4.2-5.4); White Blood Count 6.5 K/mm3 (4.4-11.0)
[2024-12-15 19:34] LABS: ALB/GLOB Ratio 1.5 RATIO (0.9-2.4); AST(SGOT) 26 U/L (<=31); Alanine Aminotransfer ALT/SGPT 27 U/L (<=34); Albumin, Serum 4.2 g/dL (3.4-4.8); Alkaline Phosphatase 76 U/L (35-104); Anion Gap 15 (5-15); BUN 19 mg/dL (4-19); BUN/Creat Ratio 21.7 RATIO (10-20); Calcium,Total 9.4 mg/dL (7.6-11.0); Carbon Dioxide 20.6 mmol/L (21.0-32.0); Chloride 105 mmol/L (98-108); Creatinine, Serum 0.88 mg/dL (0.70-1.20); EST Glomerular Filtration Rate 68 (>60); Globulin 2.8 g/dL (2.2-4.2); Glucose 131 mg/dL (70-99); Potassium 4.5 mmol/L (3.3-5.1); Sodium Level 140 mmol/L (133-145); Total Bilirubin 0.75 mg/dL (0.00-1.30); Vitamin B12 524 pg/mL (180-914)
[2024-12-16 16:45] LABS: Hemoglobin A1c 5.8 % (<=5.6)
== END | disposition home or self-care (01) ==
LOC: MTLAB 11:46
PROVIDERS: PCP Nurse Practitioner Family; Referring Provider Nurse Practitioner Family; Visit Provider Nurse Practitioner Family
DX: E11.9 Type 2 diabetes mellitus without complications (principal); I10 Essential (primary) hypertension; E78.5 Hyperlipidemia, unspecified; R53.83 Other fatigue; R41.3 Other amnesia
CPT/HCPCS: 36415; 80053; 82607; 82746; 83036; 84439; 84443; 85025

== ENCOUNTER → 2025-01-12 | Outpatient (CLI) | payer MEDICARE, SELFPAY ==
--- NOTE | 2025-01-12 07:03 | MRI_ITS ---
PROCEDURE: BRAIN WITHOUT CONTRAST 01/12/2025 REASON FOR EXAM: APHASIA; COGNITIVE IMPAIRMENT TECHNIQUE: BRAIN WITHOUT CONTRAST Multiplanar and multisequence images were obtained. COMPARISON: None. FINDINGS: There are numerous punctate foci of abnormal periventricular and subcortical white matter signal in both cerebral hemispheres. There are few punctate foci of low signal on the gradient echo images indicating prior microhemorrhages, particularly seen in patients with known hypertension. There is a normal sulcal pattern and gyral configuration. There is no evidence of acute intracranial hemorrhage or infarction. The mann-white differentiation is well preserved. There is no evidence of restricted diffusion. The ventricles and basilar cisterns are normal. There are normal flow voids demonstrated in the recognized intracranial vessels. The cerebellum and brainstem are unremarkable. The cerebellar pontine angles are normal. The craniovertebral junction is normal. The sella and suprasellar regions are normal. The orbits and retro-orbital regions are unremarkable. The nasal septum is midline. There is no significant paranasal sinus disease. The mastoid air cells are clear. There is normal bone marrow signal in the skull base and calvarium. MRI/Brain without Contrast IMPRESSION: 1. Foci of abnormal periventricular and subcortical white matter signal in bot h cerebral hemispheres consistent with chronic ischemic white matter disease. 2. There are few foci of low signal on the gradient echo images indicative of prior microhemorrhages. 3. There is no evidence of acute intracranial pathology. Reading Location: [id number]
--- OUTSIDE RECORDS SUMMARY | 2025-01-12 07:03 | XMS RPT_ITS | CCD ---
Author Organization [facility] Care Team Providers Care Wool Buyer Name Role Phone ROMULO DO, DR PK Orta Primary Care Physician Romulo, Dr. Naranjo Primary Care Provider Romulo, Dr. Naranjo Referring Provider Kale TUTTLE PA Edison Deluca Attending Provider Romulo, Dr. Naranjo Primary Care Provider [phone] Romulo, Dr. Naranjo Referring Provider Dr. Salo Vasquez Attending Provider Dr. Ted Almodovar Attending Provider Dr. Salo Vasquez Referring Provider Dr. Salo Vasquez Other Provider Romulo DO, Pk Primary Care Provider PK SEBASTIAN Attending Unavailable ROMULOPK Referring Unavailable ROMULOPK Primary Care Unavailable ROMULO DO, DR PK Orta Primary Care UnavailKalin TUTTLE, MS EDISON Deluca Attending Unav ailable ROMULO DO, DR PK Orta Primary Care UnavailKalin TUTTLE, MS EDISON M Attending Unav ailable Romulo, Dr. Naranjo Primary Care Provider Romulo, Dr. Naranjo Referring Provider Kale TUTTLE PA Eidson Deluca Attending Provider ROMULO DO, DR PK Orta Attending Unavailabl e ROMULO DO, DR PK Orta Primary Care Unavailabl e ROMULO DO, DR PK Orta Attending Unavailabl e ROMULO DO, DR PK A Primary Care Unavailabl e Romulo DO, Dr. Naranjo Referring Provider Pedro CHO, Dr. Leong Attending Provider Franko INDEPENDENT JEWELER-C, Karis Primary Care Provider Franko INDEPENDENT JEWELER-C, Karis Referring Provider Nathan INDEPENDENT JEWELER-C, Patricia Attending Provider [phone] Sadnip CHO, Dr. Taylor Attending Provider [phone] Franko INDEPENDENT JEWELER-C, Karis Attending Provider Romulo, Pk Referring Unavailable Brandon Oropeza Attending Unavailable Franko, Karis Primary Care Unavailable Romulo, Pk Primary Care Unavailable Edison Wright Attending Unavail able Romulo, Pk Referring Unavailable Romulo, Pk Referring Unavailable Romulo, Pk Primary Care Unavailable Chandu Newton Attending Unavailable Romulo, Pk Referring Unavailable Salo Vasquez Attending Unavailable Franko, Karis Primary Care Unavailable Patricia Evans Attending Unavailable Franko, Karis Primary Care Unavailable Franko, Karis Referring Unavailable Romulo, Pk Primary Care Unavailable Kale TUTTLE, Edison Deluca Attending Unavail able Kale TUTTLE, Edison Deluca Referring Unavail able Edison Wright Referring Unavail able Romulo, Pk Primary Care Unavailable Edison Wright Attending Unavail able Franko, Karis Primary Care Unavailable Noy Ann Attending Unavailable BordnerNoy Referring Unavailable Franko, Karis Primary Care Unavailable Franko, Karis Attending Unavailable Franko, Karis Referring Unavailable Romulo, Pk Primary Care Unavailable Edison Wright Referring Unavail able Ted Almodovar Attending Unavailable Romulo, Pk Primary Care Unavailable Salo Vasquez Attending Unavailable Allergies Allergy Classification Reported Allergen(s) Allergy Type Date of Onset Reaction(s) Facility (13 sources) Isosorbide; Translations: [isosorbide] Drug Allergy 2 Headache (finding) [facility] (13 sources) Morphine; Translations: [morphine] Drug Allergy 2 Nausea (finding) [facility] (2 sources) amLODIPine Drug Allergy 5 Severe swelling, dull ache in chest, BP paradoxically high [facility] (1 source) amLODIPine Drug Allergy 5 [facility] (1 source) Isosorbide Drug Allergy 5 [facility] (1 source) Morphine Drug Allergy 5 [facility] Medications Current Medications Medication Drug Class(es) Dates Sig (Normalized) Sig (Original) amoxicillin 875 mg / clavulanate 125 mg oral tablet (1 source) Penicillin-class Antibacterial Start: 12-11-2022 End: 12-18-2022 take 1 tablet by mouth every twelve hours amoxicillin-clav ulanate 875 mg-125 mg oral tablet 1 tab(s), Oral, q12h, X 7 day(s), # 14 tab(s), 0 Refill(s), 12/18/22 9:42:00 EDT, Pharmacy: [facility] #[id number], Right otitis media, 167, cm, 12/11/22 9:22:00 EDT, Height, 66.1 Start Date: 12/11/22 Stop Date: 12/18/22 Status: Ordered aspirin 81 mg delayed release oral tablet (20 sources) Platelet Aggregation Inhibitor, Nonsteroidal Anti-inflammatory Drug Start: 11-14-2017 End: 08-15-2020 Aspirin (Adult Low Dose Aspirin) 81 mg tablet,delayed release (DR/EC) Active 81 mg PO every other day August 15, 2020 2:04pm Start: 07-11-2017 End: 11-14-2017 take 1 tablet by mouth twice daily at mealtime Aspirin 325 MG tablet Discontinued 325 mg PO TWICE DAILY WITH MEALS July 11, 2017 1:00am November 14, 2017 1:30pm Start: 06-25-2017 End: 07-11-2017 take 1 tablet by mouth every other day Aspirin 81 MG Tab.Chew Discontinued 81 mg PO EVERY OTHER DAY June 25, 2017 1:00am July 11, 2017 10:22am Start: 11-08-2015 take 1 dose by mouth once yulissa y aspirin Dose : 81 mg =, Oral, qDay Start Date: 11/08/15 Status: Ordered Start: 02-23-2015 End: 04-03-2017 take 1 tablet by mouth once daily Aspirin 81 MG Tab.Chew Discontinued 81 mg PO DAILY@0800 February 23, 2015 12:00am April 03, 2017 7:24am cholecalciferol 0.125 mg oral capsule (3 sources) Vitamin D Start: 09-10-2023 take 1 capsule by mouth once daily Cholecalciferol (Vitamin D3) 125 mcg (5,000 unit) capsule Active 125 ug PO DAILY September 10, 2023 1:00am escitalopram 5 mg oral tablet (4 sources) Serotonin Reuptake Inhibitor Start: 03-12-2024 take 1 tablet by mouth once daily Escitalopram Oxalate 5 mg tablet Active 5 mg PO DAILY March 12, 2024 12:00am Start: 12-23-2023 End: 03-22-2024 escitalopram 10 mg oral tabl et Dose : 10 mg = 1 tab(s), Oral, qDay, # 90 tab(s), 0 Refill(s), Pharmacy: [id number], Anxiety, 167, cm, 12/23/23 14:14:00 EDT, Height, kg, 12/23/23 14:14:00 EDT, Dosing Weight Start Date: 12/23/23 Stop Date: 03/22/24 Status: Ordered losartan potassium 50 mg oral tablet (2 sources) Angiotensin 2 Receptor Enriqueta Start: 10-29-2024 take 1 tablet by mouth once daily Losartan 50 mg tablet Active 50 mg PO daily 90 October 29, 2024 12:00am Lysine (6 sources) Start: 06-13-2023 lysine Oral, includes Vitamin C, Echenacea, Licorice, Propolis, Garlic, 0 Refill(s) Start Date: 06/13/23 Status: Ordered Start: 09-15-2020 take 1 mg by mouth once daily lysine mg =, Oral, qDay, 0 Refill(s) Start Date: 09/15/20 Status: Ordered [place]way-3 350 mg oral capsule (2 sources) Start: 05-17-2022 take 1 capsule by mouth once daily Midway-3 350 mg oral capsule mg = cap(s), Oral, qDay, 0 Refill(s) Start Date: 05/17/22 Status: Ordered Super Lysine (6 sources) Start: 08-15-2020 Super Lysine A ctive 1 {tbl} PO DAILY August 15, 2020 1:00am Start: 08-15-2020 take 1 tablet by mouth once da salud Super Lysine Active 1 TABLET PO DAILY August 15, 2020 1:00am Start: 08-15-2020 take 1 tablet by mouth once da salud Super Lysine Active 1 TABLET PO DAILY August 15, 2020 12:00am Turmeric extract (3 sources) Start: 06-13-2023 take 1 capsule by mouth once daily turmeric 1000 mg oral capsule See Instructions, 1 daily, 0 Refill(s) Start Date: 06/13/23 Status: Ordered Vitamin B12 5000 mcg oral tablet, disintegrating (1 source) Start: 06-13-2023 Vitamin B12 50 00 mcg oral tablet, disintegrating Dose : 5,000 mcg = 1 tab(s), Oral, qDay, # 100 tab(s), 0 Refill(s) Start Date: 06/13/23 Status: Ordered Vitamin D3 125 mcg (5000 intl units) oral capsule (5 sources) Start: 05-17-2022 take 1 capsule by mouth once daily Vitamin D3 125 mcg (5000 intl units) oral capsule mcg = cap(s), Oral, qDay, 0 Refill(s) Start Date: 05/17/22 Status: Ordered Completed/Discontinued Medications Medication Drug Class(es) Dates Sig (Normalized) Sig (Original) acetaminophen 500 mg oral tablet (6 sources) Start: 07-11-2017 End: 05-22-2018 take 2 tablets by mouth every eight hours Acetaminophen 500 MG tablet Discontinued 1000 mg PO EVERY 8 HOURS July 11, 2017 1:00am May 22, 2018 2:33pm Start: 07-11-2017 End: 05-22-2018 take 1000 mg by mouth every eight hours Acetaminophen Discontinued 1000 MG PO EVERY 8 HOURS July 11, 2017 1:00am May 22, 2018 2:33pm acetaminophen 325 mg / oxyCODONE hydrochloride 5 mg oral tablet (6 sources) Opioid Agonist Start: 03-22-2017 End: 04-03-2017 Oxycodone-Acetaminophen 1 TABLET tablet Discontinued 1 - 2 {tbl} PO EVERY 4 HOURS NEEDED as needed for Pain March 22, 2017 12:00am April 03, 2017 7:24am Start: 03-22-2017 End: 04-03-2017 take 1 tablet by mouth every four hours as needed Oxycodone-Acetaminophen Discontinued 1 - 2 TABLET PO EVERY 4 HOURS NEEDED March 22, 2017 12:00am April 03, 2017 7:24am amLODIPine 5 mg oral tablet (20 sources) Dihydropyridine Calcium Channel Enriqueta Start: 07-03-2018 End: 10-29-2024 take 1 tablet by mouth once daily Amlodipine 5 mg tablet Discontinued 5 mg PO DAILY September 07, 2024 10:56am October 29, 2024 1:36pm atorvastatin 80 mg oral tablet (20 sources) HMG-CoA Reductase Inhibitor Start: 02-23-2015 End: 03-06-2024 take 1 tablet by mouth at bedtime Atorvastatin 80 mg tablet Discontinued 80 mg PO AT BEDTIME August 28, 2022 1:00am September 10, 2023 3:11pm benzonatate 100 mg oral capsule (2 sources) Non-narcotic Antitussive Start: 08-04-2024 End: 10-29-2024 take 1 capsule by mouth three times daily as needed for cough Benzonatate 100 mg capsule Discontinued 100 mg PO THREE TIMES A DAY as needed for cough August 04, 2024 1:00am October 29, 2024 12:59pm biotin 5 mg disintegrating oral tablet (6 sources) Start: 08-15-2020 End: 04-03-2022 take 1 tablet by mouth once daily Biotin 5,000 mcg tablet,disintegra ting Discontinued 5000 ug PO DAILY August 15, 2020 1:00am April 03, 2022 1:42pm Calcium Carb-Mag Ox-Zinc Sulf (6 sources) Start: 05-22-2018 End: 04-08-2019 Calcium Carb-Mag Ox-Zinc Sulf 333-133-5 mg tablet Discontinued 1 {tbl} PO TWICE A DAY May 22, 2018 1:00am April 08, 2019 1:59pm Start: 05-22-2018 End: 04-08-2019 take 1 tablet by mouth twice daily Calcium Carb-Mag Ox-Zinc Sulf Discontinued 1 TABLET PO TWICE A DAY May 22, 2018 1:00am April 08, 2019 1:59pm Start: 05-22-2018 End: 04-08-2019 take 1 tablet by mouth twice daily Calcium Carb-Mag Ox-Zinc Sulf Discontinued 1 TABLET PO TWICE A DAY May 22, 2018 12:00am April 08, 2019 12:59pm celecoxib 50 mg oral capsule (6 sources) Nonsteroidal Anti-inflammatory Drug Start: 03-22-2017 End: 04-03-2017 take 4 capsules by mouth once daily Celecoxib (Celebrex) 50 MG capsule Discontinued 200 mg PO .DAILY March 22, 2017 12:00am April 03, 2017 7:23am clopidogrel 75 mg oral tablet (6 sources) P2Y12 Platelet Inhibitor Start: 07-09-2018 End: 08-21-2018 take 1 tablet by mouth once daily Clopidogrel (Plavix) 75 mg tablet Discontinued 75 mg PO DAILY July 09, 2018 1:00am August 21, 2018 5:31pm docusate sodium 100 mg oral capsule (6 sources) Start: 03-22-2017 End: 08-15-2020 take 1 capsule by mouth at bedtime Docusate Sodium 100 MG capsule Discontinued 100 mg PO AT BEDTIME March 22, 2017 12:00am August 15, 2020 2:08pm famotidine 20 mg oral tablet (6 sources) Histamine-2 Receptor Antagonist Start: 07-11-2017 End: 11-14-2017 take 1 tablet by mouth once daily Famotidine 20 MG tablet Discontinued 20 mg PO DAILY July 11, 2017 1:00am November 14, 2017 1:32pm lisinopril 10 mg oral tablet (20 sources) Angiotensin Converting Enzyme Inhibitor Start: 04-08-2019 End: 11-12-2019 take 1 tablet by mouth once daily Lisinopril 10 mg tablet Discontinued 10 mg PO DAILY April 08, 2019 2:21pm November 12, 2019 1:22pm Start: 02-23-2015 End: 04-08-2019 take 1 tablet by mouth once daily Lisinopril 20 mg tablet Discontinued 20 mg PO DAILY September 15, 2018 12:04pm April 08, 2019 2:12pm Cpekugehd-Nrnxh-Slvx-Supox-C at 200-20-5-20 vc-id-tj-mcg capsule (2 sources) Start: 11-12-2019 End: 08-15-2020 take 1 capsule by mouth once daily Jhpqvcmgk-Knyjb-Mdkp-Supox-Cat 200-20-5-20 hd-sq-qu-mcg capsule Discontinued 1 NMA PO DAILY November 12, 2019 12:00am August 15, 2020 2:08pm rysxnltmow-ybwms-nmjy-supero x dis-catlase 200 mg-20 mg-5 mg-20 mcg cap (4 sources) Start: 11-12-2019 End: 08-15-2020 take 1 capsule by mouth once daily adizzevvcg-nodsg-hqbn-superox dis-catlase 200 mg-20 mg-5 mg-20 mcg cap Discontinued 1 CAP PO DAILY November 12, 2019 12:00am August 15, 2020 2:08pm Start: 11-12-2019 End: 08-15-2020 take 1 capsule by mouth once daily girueblbha-wuyax-twln-superox dis-catlas e 200 mg-20 mg-5 mg-20 mcg cap Discontinued 1 CAP PO DAILY November 11, 2019 11:00pm August 15, 2020 1:08pm 24 hr metoprolol succinate 25 mg extended release oral tablet (20 sources) beta-Adrenergic Enriqueta Start: 05-15-2021 End: 04-03-2022 take 2 tablets by mouth once daily Metoprolol Succinate 25 mg tablet extended release 24 hr Discontinued 12.5 mg PO DAILY May 15, 2021 12:00am April 03, 2022 2:22pm Start: 05-15-2021 End: 04-03-2022 take 12.5 mg by mouth once daily Metoprolol Succinate Discontinued 12.5 MG PO DAILY May 15, 2021 12:00am April 03, 2022 2:22pm Start: 11-08-2015 metoprolol tar trate 25 mg oral tablet Dose : 12.5 mg = 0.5 tab(s), Oral, qDay Start Date: 11/08/15 Status: Ordered Start: 02-23-2015 End: 05-15-2021 Metoprolol Tartrate 25 mg ta blet Discontinued 12.5 mg PO DAILY May 30, 2020 4:58pm May 15, 2021 3:57pm Start: 02-23-2015 End: 05-15-2021 take 12.5 mg by mouth once daily Metoprolol Tartrate Discontinued 12.5 MG PO DAILY May 30, 2020 4:58pm May 15, 2021 3:57pm naproxen sodium 220 mg oral tablet (6 sources) Nonsteroidal Anti-inflammatory Drug Start: 05-22-2018 End: 04-08-2019 take 1 tablet by mouth twice daily as needed for pain Naproxen Sodium (Flanax (Naproxen)) 220 mg tablet Discontinued 220 mg PO TWICE A DAY as needed for Pain May 22, 2018 1:00am April 08, 2019 1:59pm oxyCODONE hydrochloride 5 mg oral tablet (6 sources) Opioid Agonist Start: 07-11-2017 End: 11-14-2017 take 5-10 mg by mouth every four hours as needed for pain Oxycodone 5 MG tablet Discontinued 5 - 10 mg PO EVERY 4 HOURS NEEDED as needed for Mod-Severe Pain (4-10/10) 80 July 11, 2017 1:00am November 14, 2017 1:31pm predniSONE 10 mg oral tablet (1 source) Start: 03-16-2021 End: 03-22-2021 prednisone 10mg tab (TAPER) Taper 38-68-37-30-20-10 x 1 day, Oral, qAM, # 21 tab(s), 0 Refill(s), Pharmacy: [facility]/pharmacy #[id number], Contact dermatitis, 167, cm, 03/16/21 9:54:00 EDT, Height, kg, 03/16/21 9:54:00 EDT, Dosing Weight Start Date: 03/16/21 Stop Date: 03/22/21 Status: Ordered 12 hr ranolazine 500 mg extended release oral tablet (20 sources) Anti-anginal Start: 05-22-2018 End: 06-09-2018 take 1 tablet by mouth twice daily Ranolazine 1,000 mg tablet extended release 12 hr Discontinued 1000 mg PO TWICE A DAY 180 May 22, 2018 2:52pm June 09, 2018 6:03pm Start: 11-08-2015 End: 11-02-2024 take 1 tablet by mouth twice daily Ranolazine 500 mg tablet extended release 12 hr Discontinued 500 mg PO TWICE A DAY 180 October 21, 2023 11:00am November 02, 2024 3:01pm Problems Active Problems Problem Classification Problem Date Documented Date Episodic/Chronic Cardiac dysrhythmias (12 sources) Palpitations; Translations: [Palpitations] 06-11-2022 Episodic Conduction disorders (6 sources) Right bundle branch block; Translations: [Unspecified right bundle-branch block] 11-11-2017 Chronic Coronary atherosclerosis and other heart disease (17 sources) Coronary atherosclerosis; Translations: [Atherosclerotic heart disease of [place] coronary artery with unspecified angina pectoris] 05-25-2021 Chronic Diabetes mellitus without complication (1 source) Type 2 diabetes mellitus without complications; Translations: [Type 2 diabetes mellitus without complications] Onset: 12-18-2024 Chronic Disorders of lipid metabolism (12 sources) Hyperlipidemia; Translations: [Hyperlipidemia, unspecified] Chronic Essential hypertension (19 sources) Hypertensive disorder; Translations: [Essential hypertension] 01-21-2019 Chronic Heart valve disorders (11 sources) Non-rheumatic mitral regurgitation ; Translations: [Nonrheumatic mitral (valve) insufficiency] 11-11-2017 Chronic Hemorrhoids (5 sources) Residual hemorrhoidal skin tags; Translations: [Residual hemorrhoidal skin tags] Onset: 11-30-2024 11-03-2024 Episodic Occlusion or stenosis of precerebral arteries (1 source) Bilateral atherosclerosis of carotid arteries 06-19-2024 Chronic Osteoarthritis (7 sources) Arthritis 11-08-2015 Chronic Other circulatory disease (6 sources) Carotid bruit; Translations: [Other specified symptoms and signs involving the circulatory and respiratory systems] 12-27-2022 Episodic Other circulatory disease (2 sources) Other specified symptoms and signs involving the circulatory and respiratory systems; Translations: [Other symptoms involving cardiovascular system] 12-27-2022 Episodic Other connective tissue disease (1 source) Hip joint prosthesis present; Translations: [Presence of left artificial hip joint] Chronic Other nervous system disorders (2 sources) Aphasia; Translations: [Aphasia] 12-10-2024 Chronic Comment on above: Patient appears to h ave early signs of an aphasia as may be seen in primary progressive aphasia. No definite stroke identified but given the nature of her coronary artery disease and mild valvular abnormalities possibility of small vessel cerebrovascular disease or small strokes cannot be excluded on the basis of today's examination. Alternative consideration would be early onset Alzheimer's disease or primary progressive aphasia. 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] Onset: 01-08-2025 Chronic Other non-traumatic joint disorders (1 source) Pain of left hip joint; Translations: [Pain in left hip] Episodic Other screening for suspected conditions (not mental disorders or infectious disease) (6 sources) Patient encounter status; Translations: [Encounter for screening mammogram for malignant neoplasm of breast] Onset: 02-07-2023 02-07-2023 Episodic Residual codes; unclassified (1 source) Memory impairment; Translations: [Other amnesia] 12-10-2024 Episodic Residual codes; unclassified (1 source) Other amnesia; Translations: [Other amnesia] Onset: 01-08-2025 Episodic Spondylosis; intervertebral disc disorders; other back problems (1 source) Degeneration of lumbar intervertebral disc; Translations: [Other intervertebral disc degeneration, lumbar region] Chronic Syncope (3 sources) Near syncope; Translations: [Syncope and collapse] 01-17-2023 Episodic Viral infection (5 sources) Disease caused by 2019-nCoV 05-17-2022 Past or Other Problems Problem Classification Problem Date Documented Da te Episodic/Chronic Acute bronchitis (3 sources) Acute bronchitis; Translations: [Acute bronchitis, unspecified] Onset: 08-04-2024 08-04-2024 Episodic Conditions associated with dizziness or vertigo (7 sources) Lightheadedness; Translations: [Dizziness and giddiness] Onset: 01-31-2024 06-07-2021 Episodic Coronary atherosclerosis and other heart disease (4 sources) Presence of aortocoronary bypass graft; Translations: [Aortocoronary bypass status] Onset: 05-31-2008 Episodic Heart valve disorders (9 sources) Heart murmur; Translations: [Cardiac murmur, unspecified] Onset: 04-27-2024 Episodic Results Test Name Value Interpretation Reference Range Facility Hemoglobin A1con 12-16-2024 HbA1c (Bld) [Mass fraction] 5.8 % High <=5.6 [facility] Comment on above: Order Comment: WILLIAM CERON GEOGRAPHIC INFORMATION SCIENTIST ADDED A A1C. RANGLE Result Comment: Norm al < 5.7 % Prediabetic 5.7 - 6.4 % Diabetic >or= 6.5 % Please note range changes. Performed By: #### L [id number], [id number], L503.0106, L506.0400, L100.0100, L506.0200, L501.9985 ####[facility] [id number] [place], [place], [id number] Hemoglobin A1c percentageOrd ered By: [facility] 12-16-2024 HbA1c (Bld) [Mass fraction] 5.8 % High <5.7 [facility] Comment on above: Normal < 5.7 % Predi abetic 5.7 - 6.4 % Diabetic >or= 6.5 % Please note range changes. Absolute lymphocyte countOrd ered By: [facility] 12-15-2024 Lymphocytes Auto (Unsp spec) [#/Vol] 2.29 10*3/uL 0.83-4.51 [facility] Absolute neutrophil countOrd ered By: [facility] on 12-15-2024 Neutrophils (Bld) [#/Vol] 3.7 10*3/uL 2.0-7.7 [facility] Anion gap in Serum or Plasma [facility] 12-15-2024 Anion gap [Moles/Vol] 15 mmol/L 5-15 [facility] Automated lymphocyte count a s percentage of total leukocytesOrdered By: [facility] on 12-15-2024 Lymphocytes/100 WBC Auto (Unsp spec) 35.1 % 19-41 [facility] BUN/creatinine ratioOrdered By: [facility] on 12-15-2024 Urea nitrogen/Creatinine [Mass ratio] 21.7 mg/mg High 10-20 [facility] Basophil percentageOrdered B y: [facility] 12-15-2024 Basophils/100 WBC (Bld) 0.6 % 0-1 [facility] Bilirubin, totalOrdered By: [facility] on 12-15-2024 Bilirubin [Mass/Vol] 0.75 mg/dL 0.00-1.30 [facility] CBC W/Diff, Automatedon Absolute Lymph 2.29 X10 3/uL Normal 0.83-4.51 [facility] Comment on above: Performed By: #### L [id number], [id number], L503.0106, L506.0400, L100.0100, L506.0200, L501.9985 #### [facility] [address] [place], [address] Absolute Neut 3.7 X10 3/uL Normal 2.0-7.7 [facility] Comment on above: Performed By: #### L [id number], [id number], L503.0106, L506.0400, L100.0100, L506.0200, L501.9985 #### [facility] [address] [place], [address] Basophils/100 WBC (Bld) 0.6 % Normal 0-1 [facility] Comment on above: Performed By: #### L [id number], [id number], L503.0106, L506.0400, L100.0100, L506.0200, L501.9985 #### [facility] [address] [place], [address] Eosinophils/100 WBC (Bld) 2.0 % Normal 0-5 [facility] Comment on above: Performed By: #### L [id number], [id number], L503.0106, L506.0400, L100.0100, L506.0200, L501.9985 #### [facility] [address] [place], [address] Erythrocyte distribution width (RBC) [Ratio] 12.5 % Normal 11.6-14.6 [facility] Comment on above: Performed By: #### L [id number], [id number], L503.0106, L506.0400, L100.0100, L506.0200, L501.9985 #### [facility] [address] [place], [address] Hematocrit (Bld) [Volume fraction] 40.3 % Normal 37-47 [facility] Comment on above: Performed By: #### L [id number], [id number], L503.0106, L506.0400, L100.0100, L506.0200, L501.9985 #### [facility] [address] [place], [address] Hemoglobin (Bld) [Mass/Vol] 13.4 g/dL Normal 12.0-15.0 [facility] Comment on above: Performed By: #### L [id number], [id number], L503.0106, L506.0400, L100.0100, L506.0200, L501.9985 #### [facility] [address] [place], [address] IG% 0.200 Normal 0.0-0.9 [facility] Comment on above: Result Comment: IG% - Immature Granulocytes (promyelocytes, myelocytes and metamyelocytes) > 1% indicates that a LEFT SHIFT is Present. Performed By: #### L [id number], [id number], L503.0106, L506.0400, L100.0100, L506.0200, L501.9985 #### [facility] [address] [place], [address] Lymphocytes/100 WBC (Bld) 35.1 % Normal 19-41 [facility] Comment on above: Performed By: #### L [id number], [id number], L503.0106, L506.0400, L100.0100, L506.0200, L501.9985 #### [facility] [address] [place], [address] MCH (RBC) [Entitic mass] 31.6 pg Normal 27.0-32.0 [facility] Comment on above: Performed By: #### L 501.9520, L500.4050, L503.0106, L506.0400, L100.0100, L506.0200, L501.9985 #### [facility] [address] [place], [address] MCHC (RBC) [Mass/Vol] 33.3 g/dL Normal 32-36 [facility] Comment on above: Performed By: #### L 501.9520, L500.4050, L503.0106, L506.0400, L100.0100, L506.0200, L501.9985 #### [facility] [address] [place], [address] MCV (RBC) [Entitic vol] 95.0 fL Normal 81-99 [facility] Comment on above: Performed By: #### L 501.9520, L500.4050, L503.0106, L506.0400, L100.0100, L506.0200, L501.9985 #### [facility] [address] [place], [address] Monocytes/100 WBC (Bld) 5.2 % Normal 0-10 [facility] Comment on above: Performed By: #### L 501.9520, L500.4050, L503.0106, L506.0400, L100.0100, L506.0200, L501.9985 #### [facility] [address] [place], [address] Neutrophils/100 WBC (Bld) 56.9 % Normal 47-70 [facility] Comment on above: Performed By: #### L 501.9520, L500.4050, L503.0106, L506.0400, L100.0100, L506.0200, L501.9985 #### [facility] [address] [place], [address] Nucleated RBC (Bld) [#/Vol] 0 10*3/uL Normal 0-5 [facility] Comment on above: Performed By: #### L 501.9520, L500.4050, L503.0106, L506.0400, L100.0100, L506.0200, L501.9985 #### [facility] [address] [place], [address] Platelet mean volume (Bld) [Entitic vol] 10.5 fL Normal 6.2-12.0 [facility] Comment on above: Performed By: #### L 501.9520, L500.4050, L503.0106, L506.0400, L100.0100, L506.0200, L501.9985 #### [facility] [address] [place], [address] Platelets (Bld) [#/Vol] 241 10*3/uL Normal 150-450 [facility] Comment on above: Performed By: #### L 501.9520, L500.4050, L503.0106, L506.0400, L100.0100, L506.0200, L501.9985 #### [facility] [address] [place], [address] RBC (Bld) [#/Vol] 4.24 10*6/uL Normal 4.2-5.4 [facility] Comment on above: Performed By: #### L 501.9520, L500.4050, L503.0106, L506.0400, L100.0100, L506.0200, L501.9985 #### [facility] [address] [place], [address] RDW SD 43.7 fl Normal 35.1-43.9 [facility] Comment on above: Performed By: #### L 501.9520, L500.4050, L503.0106, L506.0400, L100.0100, L506.0200, L501.9985 #### [facility] [address] [place], [address] WBC (Bld) [#/Vol] 6.5 10*3/uL Normal 4.4-11.0 [facility] Comment on above: Performed By: #### L 501.9520, L500.4050, L503.0106, L506.0400, L100.0100, L506.0200, L501.9985 #### [facility] [address] [place], [address] Carbon dioxide, total [Moles /volume] in Central venous bloodOrdered By: Karis Ceron on 12-15-2024 CO2 [Moles/Vol] 20.6 mmol/L Low 21.0-32.0 [facility] Chloride assayOrdered By: Ra jose Ceron on 12-15-2024 Chloride [Moles/Vol] 105 mmol/L 98-108 [facility] Comprehensive Metabolic Prof ilon 12-15-2024 Albumin [Mass/Vol] 4.2 g/dL Normal 3.4-4.8 [facility] Comment on above: Performed By: #### L 501.9520, L500.4050, L503.0106, L506.0400, L100.0100, L506.0200, L501.9985 #### [facility] [address] [place], [address] Albumin/Globulin [Mass ratio] 1.5 {ratio} Normal 0.9-2.4 [facility] Comment on above: Performed By: #### L 501.9520, L500.4050, L503.0106, L506.0400, L100.0100, L506.0200, L501.9985 #### [facility] [address] [place], [address] ALK PHOS 76 U/L Normal 35-104 [facility] Comment on above: Performed By: #### L 501.9520, L500.4050, L503.0106, L506.0400, L100.0100, L506.0200, L501.9985 #### [facility] [address] [place], [address] ALT [Catalytic activity/Vol] 27 U/L Normal <=34 [facility] Comment on above: Performed By: #### L 501.9520, L500.4050, L503.0106, L506.0400, L100.0100, L506.0200, L501.9985 #### [facility] [address] [place], [address] AST [Catalytic activity/Vol] 26 U/L Normal <=31 [facility] Comment on above: Performed By: #### L 501.9520, L500.4050, L503.0106, L506.0400, L100.0100, L506.0200, L501.9985 #### [facility] [address] [place], [address] Bilirubin [Mass/Vol] 0.75 mg/dL Normal 0.00-1.30 [facility] Comment on above: Performed By: #### L 501.9520, L500.4050, L503.0106, L506.0400, L100.0100, L506.0200, L501.9985 #### [facility] [address] [place], [address] BUN/CRE 21.7 RATIO High 10-20 [facility] Comment on above: Performed By: #### L 501.9520, L500.4050, L503.0106, L506.0400, L100.0100, L506.0200, L501.9985 #### [facility] [address] [place], [address] Calcium [Mass/Vol] 9.4 mg/dL Normal 7.6-11.0 [facility] Comment on above: Performed By: #### L 501.9520, L500.4050, L503.0106, L506.0400, L100.0100, L506.0200, L501.9985 #### [facility] [address] [place], [address] Chloride [Moles/Vol] 105 mmol/L Normal 98-108 [facility] Comment on above: Performed By: #### L 501.9520, L500.4050, L503.0106, L506.0400, L100.0100, L506.0200, L501.9985 #### [facility] [address] [place], [address] CO2 [Moles/Vol] 20.6 mmol/L Low 21.0-32.0 [facility] Comment on above: Performed By: #### L 501.9520, L500.4050, L503.0106, L506.0400, L100.0100, L506.0200, L501.9985 #### [facility] [address] [place], [address] Creatinine [Mass/Vol] 0.88 mg/dL Normal 0.70-1.20 [facility] Comment on above: Performed By: #### L 501.9520, L500.4050, L503.0106, L506.0400, L100.0100, L506.0200, L501.9985 #### [facility] [address] [place], [address] GAP 15 Normal 5-15 [facility] Comment on above: Performed By: #### L 501.9520, L500.4050, L503.0106, L506.0400, L100.0100, L506.0200, L501.9985 #### [facility] [address] [place], [address] GFR/1.73 sq M.predicted among non-blacks MDRD (S/P/Bld) [Vol rate/Area] 68 mL/min/{1.73_m2} Normal >60 [facility] Comment on above: Result Comment: mL/m in/1.73m2 CKD-EPI Creatinine Equation (2020) Performed By: #### L 501.9520, L500.4050, L503.0106, L506.0400, L100.0100, L506.0200, L501.9985 #### [facility] [address] [place], [address] Globulin (S) [Mass/Vol] 2.8 g/dL Normal 2.2-4.2 [facility] Comment on above: Performed By: #### L 501.9520, L500.4050, L503.0106, L506.0400, L100.0100, L506.0200, L501.9985 #### [facility] [address] [place], [address] Glucose [Mass/Vol] 131 mg/dL High 70-99 [facility] Comment on above: Performed By: #### L 501.9520, L500.4050, L503.0106, L506.0400, L100.0100, L506.0200, L501.9985 #### [facility] [address] [place], [address] Potassium [Moles/Vol] 4.5 mmol/L Normal 3.3-5.1 [facility] Comment on above: Performed By: #### L 501.9520, L500.4050, L503.0106, L506.0400, L100.0100, L506.0200, L501.9985 #### [facility] [address] [place], [address] Sodium [Moles/Vol] 140 mmol/L Normal 133-145 [facility] Comment on above: Performed By: #### L 501.9520, L500.4050, L503.0106, L506.0400, L100.0100, L506.0200, L501.9985 #### [facility] [address] [place], [address] T PROT 7.0 g/dL Normal 5.9-8.4 [facility] Comment on above: Performed By: #### L 501.9520, L500.4050, L503.0106, L506.0400, L100.0100, L506.0200, L501.9985 #### [facility] [address] [place], [place], [id number] Urea nitrogen [Mass/Vol] 19 mg/dL Normal 4-19 [facility] Comment on above: Performed By: #### L 501.9520, L500.4050, L503.0106, L506.0400, L100.0100, L506.0200, L501.9985 #### [facility] [address] [place], [place], [id number] Eosinophil percentageOrdered By: Karis Ceron on 12-15-2024 Eosinophils/100 WBC (Bld) 2.0 % 0-5 [facility] Erythrocyte distribution wid th ratioOrdered By: Karismontez Ceron on 12-15-2024 Erythrocyte distribution width (RBC) [Ratio] 12.5 % 11.6-14.6 [facility] Erythrocyte distribution wid th standard deviationOrdered By: [facility] on 12-15-2024 Erythrocyte distribution width (RBC) [Ratio] 43.7 fl 35.1-43.9 [facility] Folate [Moles/volume] in Ser um or PlasmaOrdered By: Karismontez Ceron on 12-15-2024 Folate [Moles/Vol] 16.50 ng/mL 4.60-34.80 [facility] Comment on above: Hemolysis, Results w ill be affected, Requires Recollection. Folates,Serum (Folic Acid)on 12-15-2024 FOLATES,SERUM 16.50 ng/mL Normal 4.60-34.80 [facility] Comment on above: Order Comment: N Result Comment: Hemo lysis, Results will be affected, Requires Recollection. Performed By: #### L 501.9520, L500.4050, L503.0106, L506.0400, L100.0100, L506.0200, L501.9985 #### [facility] [address] [place], [address] Glomerular filtration rate ( GFR) estimation/1.73 sq m using serum, plasma, or whole bOrdered By: Karis Ceron on 12-15-2024 GFR/1.73 sq M.predicted among non-blacks MDRD (S/P/Bld) [Vol rate/Area] 68 mL/min/{1.73_m2} >60 [facility] Comment on above: mL/min/1.73m2 CKD-EP I Creatinine Equation (2020) Hematocrit Auto (Bld) [Volum e fraction]Ordered By: Karis Ceron on 12-15-2024 Hematocrit (Bld) [Volume fraction] 40.3 % 37-47 [facility] Hemoglobin measurementOrdere d By: Karis Ceron on 12-15-2024 Hemoglobin (Bld) [Mass/Vol] 13.4 g/dL 12.0-15.0 [facility] Immature granulocytes/100 WB C Auto (Bld)Ordered By: Karis Ceron on 12-15-2024 Immature granulocytes/100 WBC (Bld) 0.200 % 0.0-0.9 [facility] Comment on above: IG% - Immature Granu locytes (promyelocytes, myelocytes and metamyelocytes) > 1% indicates that a LEFT SHIFT is Present. Laboratory - Chemistry and C hemistry - challengeOrdered By: Karis Ceron on 12-15-2024 AST [Catalytic activity/Vol] 26 U/L <32 [facility] MCV (mean corpuscular volume ) determinationOrdered By: Karis Ceron on 12-15-2024 MCV (RBC) [Entitic vol] 95.0 fL 81-99 [facility] Mean corpuscular hemoglobin (MCH) determinationOrdered By: Karis Ceron on 12-15-2024 MCH (RBC) [Entitic mass] 31.6 pg 27.0-32.0 [facility] Mean corpuscular hemoglobin concentration (MCHC) determinationOrdered By: Karis Ceron on 12-15-2024 MCHC (RBC) [Mass/Vol] 33.3 g/dL 32-36 [facility] Mean platelet volume determi nationOrdered By: Karis Ceron on 12-15-2024 Platelet mean volume (Bld) [Entitic vol] 10.5 fL 6.2-12.0 [facility] Monocyte percentageOrdered B y: Karis Ceron on 12-15-2024 Monocytes/100 WBC (Bld) 5.2 % 0-10 [facility] Neutrophil percentageOrdered By: Karis Ceron on 12-15-2024 Neutrophils/100 WBC (Bld) 56.9 % 47-70 [facility] Nucleated red blood cell per centageOrdered By: Karis Ceron on 12-15-2024 Nucleated RBC/100 WBC (Bld) [Ratio] 0 % 0-5 [facility] Platelet countOrdered By: Ra jose Ceron on 12-15-2024 Platelets (Bld) [#/Vol] 241 10*3/uL 150-450 [facility] Potassium measurement (mass/ volume)Ordered By: Karis Ceron on 12-15-2024 Potassium (Unsp spec) [Mass/Vol] 4.5 mmol/L 3.3-5.1 [facility] RBC Auto (Bld) [#/Vol]Ordere d By: Karis Ceron on 12-15-2024 RBC (Bld) [#/Vol] 4.24 10*6/uL 4.2-5.4 [facility] Serum creatinine measurement (mass/volume)Ordered By: Karis Ceron on 12-15-2024 Creatinine [Mass/Vol] 0.88 mg/dL 0.70-1.20 [facility] Serum globulin measurementOr dered By: Karis Ceron on 12-15-2024 Globulin (S) [Mass/Vol] 2.8 g/dL 2.2-4.2 [facility] Serum glucose measurement (m ass/volume)Ordered By: Karis Ceron on 12-15-2024 Glucose [Mass/Vol] 131 mg/dL High 70-99 [facility] Serum or plasma alanine christensen otransferase (ALT) measurementOrdered By: Karis Ceron on 12-15-2024 ALT [Catalytic activity/Vol] 27 U/L <35 [facility] Serum or plasma albumin svitlana urement (mass/volume)Ordered By: Karis Ceron on 12-15-2024 Albumin [Mass/Vol] 4.2 g/dL 3.4-4.8 [facility] Serum or plasma albumin/glob ulin mass ratioOrdered By: Karis Ceron on 12-15-2024 Albumin/Globulin [Mass ratio] 1.5 {ratio} 0.9-2.4 [facility] Serum or plasma alkaline marycarmen sphatase measurementOrdered By: Karis Ceron on 12-15-2024 ALP [Catalytic activity/Vol] 76 U/L 35-104 [facility] Serum or plasma calcium svitlana urement (mass/volume)Ordered By: Karis Ceron on 12-15-2024 Calcium [Mass/Vol] 9.4 mg/dL 7.6-11.0 [facility] Serum or plasma urea nitroge n measurement (mass/volume)Ordered By: Karis Ceron on 12-15-2024 Urea nitrogen [Mass/Vol] 19 mg/dL 4-19 [facility] Sodium levelOrdered By: Claudia Ceron on 12-15-2024 Sodium [Moles/Vol] 140 mmol/L 133-145 [facility] T4 Free Directon 12-15-2024 T4 FREE DIRECT 1.10 ng/dL Normal 0.76-1.46 [facility] Comment on above: Order Comment: N Performed By: #### L 501.9520, L500.4050, L503.0106, L506.0400, L100.0100, L506.0200, L501.9985 ####[facility] [id number] [place], [place], [id number] T4 freeOrdered By: Karis pires on 12-15-2024 Free T4 [Mass/Vol] 1.10 ng/dL 0.76-1.46 [facility] TSH DL <= 0.005 mIU/L QnOrde red By: Karis Ceron on 12-15-2024 TSH Qn 1.180 uIU/mL 0.300-4.200 [facility] Thyroid Stim Hormone (TSH)on 12-15-2024 TSH 1.180 uIU/mL Normal 0.300-4.200 [facility] Comment on above: Performed By: #### L 501.9520, L500.4050, L503.0106, L506.0400, L100.0100, L506.0200, L501.9985 ####[facility] [id number] [place], [place], [address] Total proteinOrdered By: Jory Ceron on 12-15-2024 Protein [Mass/Vol] 7.0 g/dL 5.9-8.4 [facility] Vitamin B12on 12-15-2024 Cobalamin (Vitamin B12) [Mass/Vol] 524 pg/mL Normal 180-914 [facility] Comment on above: Performed By: #### L 501.9520, L500.4050, L503.0106, L506.0400, L100.0100, L506.0200, L501.9985 ####[facility] [id number] [place], [place], [id number] Vitamin B12 ser/plasOrdered By: Karis Ceron on 12-15-2024 Cobalamin (Vitamin B12) [Mass/Vol] 524 pg/mL 180-914 [facility] White blood cell (WBC) count Ordered By: Karis Ceron on 12-15-2024 WBC (Bld) [#/Vol] 6.5 10*3/uL 4.4-11.0 [facility] Neurology Visit Reporton Neurology Visit Report [facility] [address], [address] [place], [place] [address] OFFICE VISIT Date of Service: 12/10/24 MR#: [id number] Acct: [id number] Name: ANGEL BARBOZA Rep #: [id number] : 1950 Provider: Dr. Brandon gaona MD Age/Sex: 74/F Location: [facility] Status: Signed [facility] Chief Complaint: Establish Care Details: The patient is a 74-year-old left handed female who presents to [facility]. She was referred 08/31/[address]24 [address] Ceron with [facility] for memory issues. This patient presents with her daughter for evaluation of language disorder. Patient also is forgetful. 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 Over the past year or so patient has had increasing difficulties with memory. Patient has become concerned about a memory issue and so mentioned this problem to her daughter. Her daughter feels that the memory deficit is not as bad as patient's perception however there is difficulty with memory and performance of task. Patient has a tendency to forget simple tasks that she has arranged. She is forgetting names of people and places. She is forgetting to forget names of objects. The memory loss tends to be temporary and she is able to recover the recall fairly well. With regard to language this is a more recent issue. This was somewhat complicated in the view that the patient has had a longstanding habit of altering the syntax of her words as a manner of speech. This was a field as a cueing Arity and the game by family members however the fact that she persisted for many years in this fashion suggest that there could be an underlying language abnormality. Patient did not have any difficulties with growth and development as a child. No specific deficits were otherwise identified. Patient is able to live alone. She recently moved to a another house and downsized. She is finding and maintaining at home even in downsize fashion a bit of a challenge. She is however able to drive and go shopping and buy groceries for example. She has a tendency to forget the list from time to time. She does have a tendency to forget certain task or to order sequences of task to be executed. She had previously been a multitask or not to a great degree. Patient has had increasing difficulty in paying bills. She has some problems balancing her checkbook. This appears to be a new problem for her. Patient has not suffered strokes or seizures. No significant head traumas or illnesses are identified. She is not a diabetic. She has a BMI of 21.9% and is very well groomed and fashio nable. Her blood pressure 167/60 was in characteristic for her. She may have had anxiety about presenting to the neurology office for evaluation of possible dementia. She normally runs pressures closer to 120/60. Patient is not a vasculopath. Echocardiogram in has been performed and is available on the chart for review. Carotid Dopplers have been performed and no high-grade stenoses noted. Patient does have coronary artery disease status postcoronary artery bypass grafting has had stenting placed. She has nonrheumatic mitral valve regurgitation. She has mild aortic stenosis. She is on aspirin and atorvastatin among other medications. ROS: HEENT: No headaches or head trauma. No change in vision. Wears hearing aids. No epistaxis. Respiratory: No respiratory diseases. No hemoptysis. Cardiac: Positive for coronary artery disease. Has had coronary artery bypass grafting. Has had a stent placed. Has nonrheumatic mitral regurgitation. And mild aortic stenosis. Abdomen: No abdominal pain does not vomit blood or passed blood in stool. no hematuria Extremities: Bilateral hip replacements. Has also had knee surgery. Skin: Some easy bruising noted. Solar keratosis on arms. Neurologic: No history of strokes or seizures. Psychiatric: May have some depression which is relatively mild. Exam Const Other: BP 167/60 pulse 60 respiration 16 temperature 98.2 O2 sat 99%. BMI is 21.9%. General appearance that well-developed well-nourished well-groomed lady. HEENT shows normocephalic. Conjunctiva clear. Patient is wearing bilateral hearing aids. Respiratory: Unlabored respiration Cardiac regular rhythm Abdomen not distended Extremities bruising solar keratosis skin Neurologic examination Mental status: Awake alert oriented person place day month and year. Memory testing showed that she had halted temporarily to make recall. After a minute or so she recalled all 3 objects. No delusions or hallucinations noted. Language showed that at times she would halt her speech. Word output is otherwise fluent. She may have been searching for words on several occasions. No word substitutions noted. Patient had some difficulty following some co (more content not included)... Normal [facility] Gastroenterology Visit Repor ton 11-03-2024 Gastroenterology Visit Report [facility] [address] [place] [address] OFFICE VISIT Date of Service: 11/03/24 MR#: [id number] Acct: [id number] Name: ANGEL BARBOZA Rep #: [id number] : 1950 Provider: SHAN cuevas Age/Sex: 74/F Location: [facility] Status: Signed Intake Vital Signs 10/29/24 12:51 Height 5 ft 6 in Weight: 137 lb BMI 22.1 BP 150/67 H Blood Pressure Location Lt brachial Position Sitting Respiration 16 Pulse 48 L Pulse Source Monitor Intake Visit Reasons: RECTAL PROLAPSE Chief Complaint: rectal prolapse Allergies isosorbide Adverse Reaction (Verified 11/03/24 08:13) headaches morphine Adverse Reaction (Verified 11/03/24 08:13) Nausea Medications ???Medication ???Instructions ???Recorded ???Confirmed ???Type Super Lysine 1 tab PO DAILY 08/15/20 11/03/24 H istory aspirin 81 mg tablet,delayed 81 mg PO Q OTHER DAY 08/15/2010/14 History release (Adult Low Dose Aspirin) cholecalciferol (vitamin D3) 125 125 mcg PO DAILY 09/10/23 11/03/24 History mcg (5,000 unit) capsule atorvastatin 80 mg tablet 80 mg PO QHS #90 tabs 03/06/24 Rx escitalopram oxalate 5 mg tablet 5 mg PO DAILY 03/12/24 11/03/24 Hi story losartan 50 mg tablet 50 mg PO QDAY #90 tabs 10/29/24 Rx ranolazine 500 mg tablet,extended 500 mg PO BID #180 tabs 11/02/24 11/03/24 Rx release,12 hr Have you fallen in the past year?: No PFSH Medical History Acute bronchitis, unspecified Chronic stable angina Atherosclerotic heart disease [place] coronary artery w/angina pectoris Essential (primary) hypertension Hyperlipidemia RBBB (right bundle branch block) Nonrheumatic mitral valve regurgitation Ischemic cardiomyopathy Surgical History History of left heart catheterization (07/28/18) H/O coronary artery bypass surgery (05/31/08) Status post trigger finger release History of tonsillectomy History of total left hip replacement (06/2017) History of total right hip replacement History of knee surgery History of coronary artery stent placement (03/17/10) Family History Father CAD (coronary artery disease) Hx CABG Diabetes Mother Myocardial infarction Brother CAD (coronary artery disease) Hx CABG, PTCA Brother Cancer Leukemia CAD (coronary artery disease) History of coronary artery bypass graft Sister Arthritis Social History Smoking Status: Never smoker alcohol intake: never substance use type: does not use caffeine: Yes Type: coffee Number of servings: 2 what type of physical activity do you participate in: walking and bicycling frequency: 3-4 times per week seatbelt use: always do you feel safe at home: Yes HPI HPI Chief Complaint: rectal prolapse Details: ANGEL BARBOZA, is a 74 F who presents to the office today for establishment with [facility] for concerns regarding rectal prolapse. She reports difficulty starting her BMs and states that she must press externally on her perineum area to get the stool to start coming out. She states that her rectal tissue is constantly protruding, makes it difficult to clean after BM, and that she has never tried to push the prolapsed tissue back in to her rectum. She reports telling her PCP about the rectal prolapse but has never had anyone examine the area. She denies constipation, diarrhea, hematochezia, and melena. She states that she feels that she strains more than she should to get the BM started. She denies difficulty chewing and swallowing, cough, throat clearing, sinus drainage, heartburn, reflux, nausea, vomiting, abdominal bloating and cramping. She denies spending a lot of time sitting or lifting heavy objects. She states cardiology recently changed one of heart medications and she's noted that her BMs have softened significantly since the change. ROS Const Constitutional: No chills, fatigue, fever(s) or weight change Eyes Eyes: No blurry vision or change in vision ENT ENT: Positive for abnormal hearing; No difficulty swallowing Resp Respiratory: No cough Cardio Cardiology: No chest pain at rest, chest pain with exertion or leg pain with exertion Gastro GI: No abdominal pain, belching, bloating, change in bowel habits, change in stool character, coffee ground emesis, constipation, cramping, diarrhea, heartburn, difficulty swallowing, feeling full early, excessive flatus, incontinent of stools, Vomiting blood/hematemesis, Blood in stool, loose stools, Black,tarry stools, nausea/dyspepsia, pain with swallowing, vomiting or other Genitourinary-Female: No difficulty (more content not included)... Normal [facility] Cardiology Visit Reporton Cardiology Visit Report [facility] [address] [place] [address] OFFICE VISIT Date of Service: 10/29/24 MR#: [id number] Acct: [id number] Name: ANGEL BARBOZA Rep #: [id number] : 1950 Provider: Dr. Salo Vasquez MD Age/Sex: 74/F Location: [facility] Status: Signed HPI HPI History of Present Illness Details: ANGEL BARBOZA, is a 74 F who presents for an a cardiovascular follow up. She has a history of coronary artery disease with bypass surgery.??? She had an HENDRICKSON to the LAD, SVG to the ramus intermedius and circumflex.??? She also had angioplasty to her circumflex.??? She does also have a history of hypertension and hyperlipidemia. Pt note that she is still having chest pain. This is similar to the last time. It does go away on its own. She has not needed to use NTG for this. She did have a stress test which was negative. Her exercise tolerance is stable for her age.??? She walks her dog routinely. She usually walks 2 miles a day. She does not have any worsening symptoms of shortness of breath.??? She does not have any orthopnea.??? She denies PND.??? She does not have any symptoms of congestive heart failure.??? She does not have any palpitations that she is aware of.??? She does occasionally have dizziness, this is with positional changes. She does not have any near-syncope or syncope.??? She does not have any lower extremity edema.??? She does not have any symptoms of claudication. Intake Vital Signs 09/10/23 13:39 08/04/24 10:49 10/29/24 12:51 Height 5 ft 6 in 5 ft 6 in 5 ft 6 in Weight: 137 lb BMI 22.1 BP 150/67 H Blood Pressure Location Lt brachial Position Sitting Respiration 16 Pulse 48 L Pulse Source Monitor Intake Visit Reasons: 1 Y FU Bolt Header Required: No Accompanied by: Self Is patient in pain?: No Allergies isosorbide Adverse Reaction (Verified 10/29/24 12:58) headaches morphine Adverse Reaction (Verified 10/29/24 12:58) Nausea Medications ???Medication ???Instructions ???Recorded ???Confirmed ???Type Super Lysine 1 tab PO DAILY 08/15/20 10/29/24 H istory aspirin 81 mg tablet,delayed 81 mg PO Q OTHER DAY 08/15/2010/13 History release (Adult Low Dose Aspirin) cholecalciferol (vitamin D3) 125 125 mcg PO DAILY 09/10/23 10/29/24 History mcg (5,000 unit) capsule ranolazine 500 mg tablet,extended 500 mg PO BID #180 tabs 10/21/23 10/29/24 Rx release,12 hr atorvastatin 80 mg tablet 80 mg PO QHS #90 tabs 03/06/24 Rx escitalopram oxalate 5 mg tablet 5 mg PO DAILY 03/12/24 10/29/24 Hi story losartan 50 mg tablet 50 mg PO QDAY #90 tabs 10/29/24 Rx Have you fallen in the past year?: Yes PFSH Medical History Acute bronchitis, unspecified Chronic stable angina Atherosclerotic heart disease [place] coronary artery w/angina pectoris Essential (primary) hypertension Hyperlipidemia RBBB (right bundle branch block) Nonrheumatic mitral valve regurgitation Ischemic cardiomyopathy Surgical History History of left heart catheterization (07/28/18) H/O coronary artery bypass surgery (05/31/08) Status post trigger finger release History of tonsillectomy History of total left hip replacement (06/2017) History of total right hip replacement History of knee surgery History of coronary artery stent placement (03/17/10) Family History Father CAD (coronary artery disease) Hx CABG Diabetes Mother Myocardial infarction Brother CAD (coronary artery disease) Hx CABG, PTCA Brother Cancer Leukemia CAD (coronary artery disease) History of coronary artery bypass graft Sister Arthritis Social History Smoking Status: Never smoker alcohol intake: never substance use type: does not use caffeine: Yes Type: coffee Number of servings: 2 what type of physical activity do you participate in: walking and bicycling frequency: 3-4 times per week seatbelt use: always do you feel safe at home: Yes ROS Const Const: Negative for fatigue, weakness, headache(s), daytime sleepiness or difficulty sleeping ENT ENT: Negative for headache(s), dizziness or Nosebleed/epistaxis Cardio Chest Pain: No Palpitations: No Edema: Bilateral (BLE trace at times ) Resp Respiratory: Negative for SOB with activity, SOB at rest, SOB orthopnea SOB lying down or Cough GI GI: Negative nausea, vomiting or heartburn Neuro Neuro: Positive for near syncope; Negative for dizziness, lightheadedness, headache(s) or weakness Endo Endo: Negative for fatigue Cardiology Exam Const Appearance: cooperative, healt (more content not included)... Normal [facility] Urgent Care Visit Reporton 0 08-04-2024 Urgent Care Visit Report [facility] [address], [address] [place] [address] OFFICE VISIT Date of Service: 08/04/24 MR#: [id number] Acct: [id number] Name: ANGEL BARBOZA Rep #: [id number] : 1950 Provider: MARRY Estevez Age/Sex: 73/F Location: [facility] Status: Signed Intake Vital Signs 03/12/24 13:15 08/04/24 10:49 Height 5 ft 6 in 5 ft 6 in Weight: 131 lb 135 lb 6 oz BMI 21.1 21.8 BP 124/62 H 120/68 Blood Pressure Location Lt brachial Lt brachial Position Sitting Sitting Respiration 18 12 Pulse 49 L 56 L Pulse Source Monitor NIBP Temp 97.7 F L Temp Source Oral Pulse Oximetry (%) 98 97 Oxygen Delivery Method room air Intake Visit Reasons: Cough Chief Complaint: cough Bolt Header Required: No Is patient in pain?: No Allergies isosorbide Adverse Reaction (Verified 08/04/24 10:50) headaches morphine Adverse Reaction (Verified 08/04/24 10:50) Nausea Medications ???Medication ???Instructions ???Recorded ???Confirmed ???Type Super Lysine 1 tab PO DAILY 08/15/20 08/04/24 History aspirin 81 mg tablet,delayed 81 mg PO Q OTHER DAY 08/15/20 08/04/24 History release (Adult Low Dose Aspirin) amlodipine 5 mg tablet 5 mg PO DAILY #90 tabs 09/02/23 08/04/24 Rx cholecalciferol (vitamin D3) 125 125 mcg PO DAILY 09/10/23 08/04/24 History mcg (5,000 unit) capsule ranolazine 500 mg tablet,extended 500 mg PO BID #180 tabs 10/21/23 08/04/24 Rx release,12 hr atorvastatin 80 mg tablet 80 mg PO QHS #90 tabs 03/06/24 08/04/24 Rx escitalopram oxalate 5 mg tablet 5 mg PO DAILY 03/12/24 08/04/24 History benzonatate 100 mg capsule 100 mg PO TID PRN cough #20 caps 08/04/24 08/04/24 Rx Have you fallen in the past year?: No Nurse's Note: patient here for what she states is a dry cough, non productive with sputum x1 week. Declined viral testing. 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) History of total right hip replacement History of knee surgery History of coronary artery stent placement (03/17/10) Family History Father CAD (coronary artery disease) Hx CABG Diabetes Mother Myocardial infarction Brother CAD (coronary artery disease) Hx CABG, PTCA Brother Cancer Leukemia CAD (coronary artery disease) History of coronary artery bypass graft Sister Arthritis Social History Smoking Status: Never smoker alcohol intake: never substance use type: does not use caffeine: Yes Type: coffee Number of servings: 2 what type of physical activity do you participate in: walking and bicycling frequency: 3-4 times per week seatbelt use: always do you feel safe at home: Yes HPI HPI Chief Complaint: cough Details: ANGEL BARBOZA, is a 73 F who presents to the office today for initial evaluation approximately 1 week history of persistent dry nonproductive cough; no complaints of fever, chills, sweats, lightheadedness/dizzin ess, nausea/vomiting, or chest pressure/shortness of breath/dyspnea on exertion. Non-smoker. No close contacts with similar complaints. Declining all POC screening upon offering. No [id number] products tried to assist, though admitting purchasing [id number] cough syrup (unknown name) yesterday which she has yet to use. No other associated symptoms and no other alleviating/aggravatin g factors. ROS Const Constitutional: No other (As above) Exam Const General: cooperative, healthy appearing and no acute distress Nutritional Appearance: average body habitus Orientation: alert and awake HENMT Head: normal to inspection Ears: hearing grossly normal bilaterally, external ears normal, TM's normal bilaterally and EAC's normal Nose: external nose normal, nares normal, septum normal and no nasal discharge Face and sinus: normal facial exam, sinuses nontender and face symmetric Mouth: oral mucosae normal, lip normal, tongue normal, oropharynx normal and moist mucous membranes Throat: posterior oropharynx normal, tonsils normal, uvula midline and no postnasal drainage Eyes General: appearance normal, both eyes and all related s (more content not included)... Normal [facility] BD BONE DENSITY DEXA AXIAL S KATJAKORINledy 06-29-2024 BD BONE DENSITY DEXA AXIAL SKELETON ORIGINAL EXAMINATION: BONE DENSITOMETRY 06/29/2024 1:39 pm TECHNIQUE: A bone density dual x-ray absorptiometry (DEXA) scan was performed of the axial (e.g. hips, spine) and/or appendicular (e.g. radius) skeleton as appropriate. COMPARISON: 11/25/2020. HISTORY: ORDERING SYSTEM PROVIDED HISTORY: Reason for Exam: Osteoporosis Screening FINDINGS: T Score Right Forearm: -0.8 Right Forearm: 0.638 (g/cm2) T Score Lumbar Spine: 1.7 Lumbar Spine: 1.238 (g/cmd2) BMD Change from previous Lumbar Spine: -0.7% IMPRESSION: Normal bone mineral density by WHO criteria. World Health Organization criteria: (Comparing with young normal sex matched population) - Normal: T-score at or above -1 SD (standard deviation) - Osteopenia: T-score between -1 and -2.5 SD - Osteoporosis: T-score at or below -2.5 SD The NOF recommends that FDA-approved medical therapies be considered in post-menopausal women and men age >/= 50 years with a: * Hip or vertebral fracture, or * T-score of /= 20% for major osteoporotic fractures or * >/= 3% for hip fractures All treatment decisions require clinical judgement and consideration of individual patient factors, including patient preferences, comorbidities, previous drug use, risk factors not captured in the FRAX registered model (e.g., frailty, falls, vitamin D deficiency, increased bone turnover, interval significant decline in bone density) and possible under- or over-estimation of fracture risk by FRAX. Interpreted by: Vin Collado DO Preliminary Report By: Vin Collado DO Electronically signed By Vin Collado DO Dictated Date: 06/29/2024 1:54:01 PM Prelim Date: 06/29/2024 1:54:43 PM Sign Date: 06/29/2024 1:54:43 PM Ordering Provider: PK Dominguez [facility] MAMMOGRAM SCREENING BILAT ERAL W/TOMOon 04-07-2024 DC MAMMOGRAM SCREENING BILATERAL W/BRY ORIGINAL FROM: [place] [address] PROCEDURE FOR: ANGEL BARBOZA [address] [place] [id number] Home: PID#: [id number] Exam#: [id number] : 1950 Age: 73 TO: PK SEBASTIAN DO [address] [place] [id number] Fax: NO FAX EXAMINATION: SCREENING DIGITAL BILATERAL MAMMOGRAM WITH TOMOSYNTHESIS, 04/02/2024 10:52 am TECHNIQUE: Screening mammography of the bilateral breasts was performed with tomosynthesis. 2D standard and 3D tomosynthesis combination imaging performed through both breasts in the MLO and CC projection. Computer aided detection was utilized in the interpretation of this exam. COMPARISON: November 25, 2020, November 06, 2016, February 09, 2015 HISTORY: Breast cancer screening. History of bilateral breast reduction. FINDINGS: BREAST DENSITY: There are scattered areas of fibroglandular density. Again noted are bilateral postoperative changes and bilateral benign-type calcifications. He there is no significant mass, architectural distortion or microcalcification. Fibroglandular pattern is stable. IMPRESSION: No mammographic evidence of malignancy. Continued screening with annual mammograms is recommended. Rudi العلي risk calculations, generated with the history provided, report this patient's 10 year risk and lifetime risk for developing breast cancer at 2.6% and 2.6%, respectively. Based on this assessment tool, if the patient's calculated lifetime risk is below 20%, then the patient is considered at average risk for developing breast cancer. If the patient's calculated lifetime risk is at or above 20%, then the patient is considered high risk for developing breast cancer and may be a candidate for supplemental breast MRI screening in addition to annual mammographic screening per the [place] [employer]. BIRADS: MAMMOGRAM BI-RADS: 2: Benign finding RECALL: 1 year screening RECALL TYPE: mammo LETTER SENT: Normal BI-RADS 1 and 2 Interpreted by: Melida Castro Preliminary Report By: Melida Castro Electronically signed By Melida Castro Dictated Date: 04/07/2024 1:15:52 PM Prelim Date: 04/07/2024 1:18:32 PM Sign Date: 04/07/2024 1:18:32 PM Ordering Provider: PK SEBASTIAN Senior Network Administrator: RASHIDA COOMBS RT(R)(M)(CT) letter sent: Normal BI-RADS 1 and 2 Mammogram BI-RADS: 2 Benign Normal [facility] Echo Completeon 04-02-2024 Echo Complete [facility] [address] [place] [address] [place] [address] Echo Complete 04/02/24 1340 MR#: [id number] Acct: [id number] Name: ANGEL BARBOZA Rep #: [id number] : 1950 73 From: Salo Vasquez MD Attending Dr: MARRY Slade Status: REG CLI Ordering Dr: Edison Henley Date: 03/15 04/07 Location: CVS Sex: F C Admitted: Reason For Study: MURMUR Procedure This was a 2D Doppler, Color Flow transthoracic echocardiogram. Exam performed in department. Left Ventricle Normal LV size. Left ventricular systolic function is normal. The left ventricular ejection fraction is 65 %. No regional wall motion abnormalities noted. Right Ventricle Normal RV size. Normal systolic function. Atria Normal left atrium. Normal right atrium. Mitral Valve Normal mitral valve. Mild (1+) eccentric mitral valve insufficiency. Tricuspid Valve Normal tricuspid valve. Mild (1+) tricuspid valve insufficiency. Pulmonary artery systolic pressure is 34 mmHg. Aortic Valve Trisinus/trileaflet aortic valve. Mild focal aortic valve calcification. Peak aortic valve gradient 24 mmHg. Mean aortic valve gradient 14 mmHg. Mild aortic stenosis. Pulmonic Valve Normal pulmonic valve. Great Vessels Normal aortic root. The pulmonary artery is normal size. Inferior vena cava collapse with sniff. Pericardium/Pleural No pericardial effusion. MMode/2D Measurements Calculations LVIDd: 5.0 cm IVSd: 0.88 cm LVOT diam: 2.0 cm LVIDs: 2.4 cm LVPWd: 0.78 cm LVOT area: 3.3 cm2 RVDd: 3.8 cm FS: 51.0 % asc Aorta Diam: 3.3 cm LAV(MOD-bp): 45.6 ml LVAd ap4: 20.5 cm2 LAV(MOD-bp) Indexed: 27.4 ml/m2 LVLd ap4: 6.4 cm LAV(MOD-sp2): 40.5 ml EDV(MOD-sp4): 53.9 ml LAV(MOD-sp4): 50.2 ml EDV(sp4-el): 56.1 ml LVAs ap4: 10.6 cm2 LVLs ap4: 5.6 cm ESV(MOD-sp4): 18.0 ml ESV(sp4-el): 17.2 ml EF(MOD-sp4): 66.6 % EF(sp4-el): 69.4 % LVAd ap2: 17.3 cm2 SV(MOD-sp4): 35.9 ml SV(MOD-sp2): 23.0 ml LVLd ap2: 6.5 cm EDV(MOD-sp2): 38.2 ml EDV(sp2-el): 39.2 ml LVAs ap2: 10.2 cm2 LVLs ap2: 6.0 cm ESV(MOD-sp2): 15.2 ml ESV(sp2-el): 14.8 ml EF(MOD-sp2): 60.2 % SV(sp4-el): 38.9 ml Ao sinus diam: 3.[address] Junction: 2.0 cm LA dimension(2D): 3.5 cm LA A4 area: 18.2 cm2 RA A4 area: 13.7 cm2 TAPSE: 1.8 cm Time Measurements MV dec time: 0.25 sec Doppler Measurements Calculations MV E max ngozi: 112.8 cm/sec Lat Peak E' Ngozi: 10.9 cm/sec Med Peak E' Ngozi: 9.9 cm/sec MV A max ngozi: 98.7 cm/sec E/E' lat: 10.3 E/E' med: 11.4 MV E/A: 1.1 MV dec slope: 447.2 cm/sec2 Ao V2 max: 245.2 cm/sec LV V1 max: 141.4 cm/sec Ao max P.1 mmHg LV V1 max P.0 mmHg Ao V2 mean: 179.0 cm/sec LV V1 mean P.1 mmHg Ao mean P.0 mmHg LV V1 mean: 92.1 cm/sec Ao V2 VTI: 60.5 cm LV V1 VTI: 34.7 cm AV (velocity ratio): 0.57 MICHAEL(I,D): 1.9 cm2 MICHAEL(V,D): 1.9 cm2 SV(LVOT): 114.1 ml PA V2 max: 123.7 cm/sec PI end-d ngozi: 103.3 cm/sec PA max PG (full): 2.8 mmHg TR max ngozi: 267.5 cm/sec TR max P.6 mmHg ECHO/Echo Complete Interpretation Summary Normal LV size. Left ventricular systolic function is normal. The left ventricular ejection fraction is 65 %. Mild (1+) eccentric mitral valve insufficiency. Mean aortic valve gradient 14 mmHg. Mild aortic stenosis. Ordering Physician: Edison Henley Referring Physician: Edison Henley Performed By: Germaine Lobo RDCS 04/06/24 1034 Date Salo Vasquez MD CC: Dr. Pk Sebastian DO; MARRY Slade Date Dictated: 04/02/24 1340 Date Transcribed: 04/06/24 1034 Swatch Checker: Signed Normal [facility] Cardiology Visit Reporton Cardiology Visit Report [facility] [address] [place] [address] OFFICE VISIT Date of Service: 03/12/24 MR#: [id number] Acct: [id number] Name: ANGEL BARBOZA #: [id number] : 1950 Provider: MARRY Sullivan Age/Sex: 73/F Location: [facility] Status: Signed [facility] History of Present Illness Details: ANGEL BARBOZA, is a 73 F who presents for an a cardiovascular follow up. She has a history of coronary artery disease with bypass surgery.??? She had an HENDRICKSON to the LAD, SVG to the ramus intermedius and circumflex.??? She also had angioplasty to her circumflex.??? She does also have a history of hypertension and hyperlipidemia. Pt note that she is still having chest pain. This is similar to the last time. It does go away on its own. She has not needed to use NTG for this. She did have a stress test which was negative. Her exercise tolerance is stable for her age.??? She walks her dog routinely. She usually walks 2 miles a day. She does not have any worsening symptoms of shortness of breath.??? She does not have any orthopnea.??? She denies PND.??? She does not have any symptoms of congestive heart failure.??? She does not have any palpitations that she is aware of.??? She does occasionally have dizziness, this is with positional changes. She does not have any near-syncope or syncope.??? She does not have any lower extremity edema.??? She does not have any symptoms of claudication. Intake Vital Signs 09/10/23 13:39 03/12/24 13:15 Height 5 ft 6 in 5 ft 6 in Weight: 143 lb 131 lb BMI 23.1 21.1 BP 121/67 H 124/62 H Blood Pressure Location Lt brachial Lt brachial Position Sitting Sitting Respiration 18 18 Pulse 52 L 49 L Pulse Source Monitor Monitor Pulse Oximetry (%) 99 98 Intake Visit Reasons: 6 M FU Bolt Header Required: No Is patient in pain?: No Allergies isosorbide Adverse Reaction (Verified 09/10/23 13:39) headaches morphine Adverse Reaction (Verified 09/10/23 13:39) Nausea Medications ???Medication ???Instructions ???Recorded ???Confirmed ???Type Super Lysine 1 tab PO DAILY 08/15/20 03/12/24 History aspirin 81 mg tablet,delayed 81 mg PO Q OTHER DAY 08/15/20 03/12/24 History release (Adult Low Dose Aspirin) amlodipine 5 mg tablet 5 mg PO DAILY #90 tabs 09/02/23 03/12/24 Rx cholecalciferol (vitamin D3) 125 125 mcg PO DAILY 09/10/23 03/12/24 History mcg (5,000 unit) capsule ranolazine 500 mg tablet,extended 500 mg PO BID #180 tabs 10/21/23 03/12/24 Rx release,12 hr atorvastatin 80 mg tablet 80 mg PO QHS #90 tabs 03/06/24 03/12/24 Rx escitalopram oxalate 5 mg tablet 5 mg PO DAILY 03/12/24 03/12/24 History Have you fallen in the past year?: No PFSH Medical History Atherosclerotic heart disease [place] coronary artery w/angina pectoris Essential (primary) hypertension Hyperlipidemia RBBB (right bundle branch block) Nonrheumatic mitral valve regurgitation Ischemic cardiomyopathy Surgical History History of left heart catheterization (07/28/18) H/O coronary artery bypass surgery (05/31/08) Status post trigger finger release History of tonsillectomy History of total left hip replacement (06/2017) History of total right hip replacement History of knee surgery History of coronary artery stent placement (03/17/10) Family History Father CAD (coronary artery disease) Hx CABG Diabetes Mother Myocardial infarction Brother CAD (coronary artery disease) Hx CABG, PTCA Brother Cancer Leukemia CAD (coronary artery disease) History of coronary artery bypass graft Sister Arthritis Social History Smoking Status: Never smoker alcohol intake: never substance use type: does not use caffeine: Yes Type: coffee Number of servings: 2 what type of physical activity do you participate in: walking and bicycling frequency: 3-4 times per week seatbelt use: always do you feel safe at home: Yes ROS Const Const: Negative for fatigue, weakness, headache(s), frequent falls, difficulty sleeping or excessive sweating Eyes Eyes: Negative for loss of peripheral vision, transient loss of vision, blurry vision, double vision or tunnel vision ENT ENT: Negative for headache(s), dizziness, Nosebleed/epistaxis or balance problems Cardio Chest Pain: Yes Palpitations: No Edema: None Muscle aches with walking: None Resp Respiratory: Negative for SOB with activity, SOB at rest, SOB orthopnea SOB lying down, Cough or paroxysmal nocturnal dyspnea GI GI: Negative nausea, vomiting or heartburn (more content not included)... Normal [facility] Carotid Duplex Ultrasoundon 01-21-2024 Carotid Duplex Ultrasound [facility] [address] [place] [address] Carotid Duplex Ultrasound 01/21/24 0955 MR#: [id number] Acct: [id number] Name: ANGEL BARBOZA Rep #: [id number] : 1950 73 From: Ted Almodovar MD Attending Dr: MARRY Slade Status: REG CLI Ordering Dr: Edison Henley PA Date: 04/07 Location: CVS Sex: F C Admitted: Reason For Study: Bilateral Carotid Bruit Rt. Velocities/BP Lt. Velocities/BP Prox CCA 118.2/17.6 cm/sec. Prox CCA 116.1/21.7 cm/sec. Mid CCA 98.6/18.8 cm/sec. Mid CCA 100.8/15.1 cm/sec. Dist CCA 83.0/19.2 cm/sec. Dist CCA 85.7/12.6 cm/sec. Prox ICA 183.0/53.4 cm/sec. Prox ICA 65.6/10.8 cm/sec. Mid ICA 128.6/32.7 cm/sec. Mid ICA 113.1/29.0 cm/sec. Dist ICA 113.3/27.7 cm/sec. Dist ICA 64.5/18.3 cm/sec. Rt. ICA/CCA = 1.9. Lt. ICA/CCA = 1.1. Prox ECA 74.4/2.0 cm/sec. Prox ECA 105.8/0.0 cm/sec. Rt. Vert. 66.0/13.1 cm/sec. Lt. Vert. 67.4/17.1 cm/sec. Right Extracranial There is intimal thickening but no significant atherosclerotic plaque noted in the right common carotid artery. There is heterogeneous, irregular atherosclerotic plaque noted in the right internal carotid artery. There is intimal thickening but no significant atherosclerotic plaque noted in the right external carotid artery. Antegrade flow is noted in the right vertebral artery. Left Extracranial There is intimal thickening but no significant atherosclerotic plaque noted in the left common carotid artery. There is heterogeneous, irregular atherosclerotic plaque noted in the left internal carotid artery. There is heterogeneous, irregular atherosclerotic plaque noted in the left external carotid artery. Antegrade flow is noted in the left vertebral artery. Procedure Carotid Duplex [id number]. This is a Carotid Duplex examination using B-mode, color flow and specral Doppler. The exam was diagnostic. Exam performed in department. VL/Carotid Duplex Ultrasound Interpretation Summary Moderate (50-69%) stenosis right extracranial internal carotid. Mild (<50%) stenosis left extracranial internal carotid. Patent and antegrade vertebrals bilaterally. Ordering Physician: Edison Henley Referring Physician: Pk Sebastian Performed By: Judah Schwartz RVT and Student 01/21/241621 Date Ted Almodovar MD CC: Dr. Pk Sebastian DO; MARRY Slade Date Dictated: 01/21/24954 Date Transcribed: 01/21/241621 Swatch Checker: Signed Normal [facility] .GFRon 09-13-2023 GFR Non- 57 ml/min/1.73sqm Normal [facility] ([place]) Comment on above: Result Comment: GFR Population mean for , Non- Americans Ages 20-29 = 116 mL/min/1.73 sq.m. Ages 30-39 = 107 mL/min/1.73 sq.m. Ages 40-49 = 99 mL/min/1.73 sq.m. Ages 50-59 = 93 mL/min/1.73 sq.m. Ages 60-69 = 85 mL/min/1.73 sq.m. Ages 70+ = 75 mL/min/1.73 sq.m. Chronic Kidney Disease: Less than 60 mL/min/1.73 square meters End Stage Renal Disease: Less than 15 mL/min/1.73 square meters Performed By: #### C MP, LIPID, GFR #### [address] [address] GFR 69 ml/min/1.73sqm Normal [facility] ([place]) Comment on above: Result Comment: GFR Population mean for , Non- Americans Ages 20-29 = 116 mL/min/1.73 sq.m. Ages 30-39 = 107 mL/min/1.73 sq.m. Ages 40-49 = 99 mL/min/1.73 sq.m. Ages 50-59 = 93 mL/min/1.73 sq.m. Ages 60-69 = 85 mL/min/1.73 sq.m. Ages 70+ = 75 mL/min/1.73 sq.m. Chronic Kidney Disease: Less than 60 mL/min/1.73 square meters End Stage Renal Disease: Less than 15 mL/min/1.73 square meters Performed By: #### C MP, LIPID, GFR #### Carli [address] [address] CMPon 09-13-2023 Albumin Level 3.5 G/dL Normal 3.4-4.8 [facility] ([place]) Comment on above: Performed By: #### C MP, LIPID, GFR #### Carli [address] [address] Albumin/Globulin [Mass ratio] 1.2 {ratio} Normal 1.1-2.5 [facility] ([place]) Comment on above: Performed By: #### C MP, LIPID, GFR #### [address] [address] ALP [Catalytic activity/Vol] 80 U/L Normal 40-135 [facility] ([place]) Comment on above: Performed By: #### C MP, LIPID, GFR #### [address] [address] ALT [Catalytic activity/Vol] 36 U/L Normal 14-59 [facility] ([place]) Comment on above: Performed By: #### C MP, LIPID, GFR #### [address] [address] AST [Catalytic activity/Vol] 21 U/L Normal 10-40 [facility] ([place]) Comment on above: Performed By: #### C MP, LIPID, GFR #### [address] [address] Bili Total 0.7 mg/dL Normal 0.2-1.0 [facility] ([place]) Comment on above: Result Comment: Use of this assay is not recommended for patients undergoing treatment with eltrombopag due to the potential for falsely elevated results. Performed By: #### C MP, LIPID, GFR #### [address] [address] BUN/Creatinine Ratio 15 ratio Normal 7-27 [facility] ([place]) Comment on above: Performed By: #### C MP, LIPID, GFR #### [address] [address] Calcium [Mass/Vol] 8.9 mg/dL Normal 8.4-10.2 [facility] ([place]) Comment on above: Performed By: #### C MP, LIPID, GFR #### [address] [address] Chloride [Moles/Vol] 108 mmol/L High 98-107 [facility] ([place]) Comment on above: Performed By: #### C MP, LIPID, GFR #### [address] [address] CO2 [Moles/Vol] 29 mmol/L Normal 23-31 [facility] ([place]) Comment on above: Performed By: #### C MP, LIPID, GFR #### [address] [address] Creatinine [Mass/Vol] 0.96 mg/dL Normal 0.55-1.02 [facility] ([place]) Comment on above: Performed By: #### C MP, LIPID, GFR #### [address] [address] Electrolyte Balance 7.0 mEq/L Normal 4.0-15.0 [facility] ([place]) Comment on above: Performed By: #### C MP, LIPID, GFR #### [address] [address] Globulin 2.8 G/dL Normal [facility] ([place]) Comment on above: Performed By: #### C MP, LIPID, GFR #### [address] [address] Glucose [Mass/Vol] 105 mg/dL Normal 83-110 [facility] ([place]) Comment on above: Performed By: #### C MP, LIPID, GFR #### [address] [address] Potassium [Moles/Vol] 4.8 mmol/L Normal 3.5-5.1 [facility] ([place]) Comment on above: Performed By: #### C MP, LIPID, GFR #### [address] [address] Sodium [Moles/Vol] 144 mmol/L Normal 136-145 [facility] ([place]) Comment on above: Performed By: #### C MP, LIPID, GFR #### [address] [address] Total Protein 6.3 G/dL Low 6.4-8.2 [facility] ([place]) Comment on above: Performed By: #### C MP, LIPID, GFR #### [address] [address] Urea nitrogen [Mass/Vol] 14 mg/dL Normal 7-18 [facility] ([place]) Comment on above: Performed By: #### C MP, LIPID, GFR #### [address] [address] LABORATORYOrdered By: SYSTEM SYSTEM on 09-13-2023 Albumin BCP dye [Mass/Vol] 3.5 G/dL Normal 3.4 - 4.8 G/dL AO ADM SS Albumin/Globulin [Mass ratio] 1.2 {ratio} Normal 1.1 - 2.5 ratio AO ADM SS ALP [Catalytic activity/Vol] 80 U/L Normal 40 - 135 U/L AO ADM SS ALT With P-5'-P [Catalytic activity/Vol] 36 U/L Normal 14 - 59 U/L AO ADM SS AST With P-5'-P [Catalytic activity/Vol] 21 U/L Normal 10 - 40 U/L AO ADM SS Bilirubin [Mass/Vol] 0.7 mg/dL Normal 0.2 - 1 .0 mg/dL AO ADM SS Comment on above: Interpretive Data: U se of this assay is not recommended for patients undergoing treatment with eltrombopag due to the potential for falsely elevated results. Calcium [Mass/Vol] 8.9 mg/dL Normal 8.4 - 10. 2 mg/dL AO ADM SS Chloride [Moles/Vol] 108 mmol/L High 98 - 10 7 mmol/L AO ADM SS CO2 [Moles/Vol] 29 mmol/L Normal 23 - 31 mmol/L AO ADM SS Creatinine [Mass/Vol] 0.96 mg/dL Normal 0.55 - 1.02 mg/dL AO ADM SS Electrolyte Balance 7.0 mEq/L Normal 4.0 - 15 .0 mEq/L AO ADM SS GFR/1.73 sq M.predicted among blacks MDRD (S/P/Bld) [Vol rate/Area] 69 ml/min/1.73sqm Invalid Interpretation Code AO Chemistry S Comment on above: Interpretive Data: GFR Population mean for , Non- Americans Ages 20-29 = 116 mL/min/1.73 sq.m. Ages 30-39 = 107 mL/min/1.73 sq.m. Ages 40-49 = 99 mL/min/1.73 sq.m. Ages 50-59 = 93 mL/min/1.73 sq.m. Ages 60-69 = 85 mL/min/1.73 sq.m. Ages 70+ = 75 mL/min/1.73 sq.m. Chronic Kidney Disease: Less than 60 mL/min/1.73 square meters End Stage Renal Disease: Less than 15 mL/min/1.73 square meters GFR/1.73 sq M.predicted among non-blacks MDRD (S/P/Bld) [Vol rate/Area] 57 ml/min/1.73sqm Invalid Interpretation Code AO Chemistry S Comment on above: Interpretive Data: GFR Population mean for , Non- Americans Ages 20-29 = 116 mL/min/1.73 sq.m. Ages 30-39 = 107 mL/min/1.73 sq.m. Ages 40-49 = 99 mL/min/1.73 sq.m. Ages 50-59 = 93 mL/min/1.73 sq.m. Ages 60-69 = 85 mL/min/1.73 sq.m. Ages 70+ = 75 mL/min/1.73 sq.m. Chronic Kidney Disease: Less than 60 mL/min/1.73 square meters End Stage Renal Disease: Less than 15 mL/min/1.73 square meters Globulin 2.8 G/dL Invalid Interpretation Code AO ADM SS Glucose [Mass/Vol] 105 mg/dL Normal 83 - 110 mg/dL AO ADM SS Potassium [Moles/Vol] 4.8 mmol/L Normal 3.5 - 5.1 mmol/L AO ADM SS Protein [Mass/Vol] 6.3 G/dL Low 6.4 - 8.2 G/dL AO ADM SS Sodium [Moles/Vol] 144 mmol/L Normal 136 - 145 mmol/L AO ADM SS Urea nitrogen [Mass/Vol] 14 mg/dL Normal 7 - 18 mg/dL AO ADM SS Urea nitrogen/Creatinine [Mass ratio] 15 ratio Normal 7 - 27 ratio AO ADM SS LABORATORYOrdered By: Johanny Reddy on 09-13-2023 Cholesterol [Mass/Vol] 160 mg/dL Normal 0 - 2 00 mg/dL AO ADM SS Comment on above: Interpretive Data: C holesterol Reference Interval: Less than 200 Desirable 200-239 Borderline high risk 240 and above High risk Cholesterol in HDL [Mass/Vol] 65 mg/dL High 40 - 60 mg/dL AO ADM SS Cholesterol in LDL [Mass/Vol] 84 mg/dL Normal 0 - 130 mg/dL AO ADM SS Triglyceride [Mass/Vol] 57 mg/dL Normal 0 - 150 mg/dL AO ADM SS Comment on above: Interpretive Data: T riglyceride Reference Interval: Less than 150 Normal 150-199 Borderline high risk 200-499 High risk 500 or higher Very high risk LIPIDon 09-13-2023 Cholesterol [Mass/Vol] 160 mg/dL Normal 0-200 [facility] [place] Comment on above: Result Comment: Chol esterol Reference Interval: Less than 200 Desirable 200-239 Borderline high risk 240 and above High risk Performed By: #### C MP, LIPID, GFR #### [address] [address] Cholesterol in HDL [Mass/Vol] 65 mg/dL High 40-60 [facility] ([place]) Comment on above: Performed By: #### C MP, LIPID, GFR #### [address] [address] Cholesterol in LDL [Mass/Vol] 84 mg/dL Normal 0-130 [facility] ([place]) Comment on above: Performed By: #### C MP, LIPID, GFR #### [address] [address] Triglyceride [Mass/Vol] 57 mg/dL Normal 0-150 A [facility] ([place]) Comment on above: Result Comment: Trig lyceride Reference Interval: Less than 150 Normal 150-199 Borderline high risk 200-499 High risk 500 or higher Very high risk Performed By: #### C MP, LIPID, GFR #### [address] [address] DBT Breast - bilateral elye homero 02-19-2023 No mammographic evidence of malignancy. ASSESSMENT: Category 2 Benign RECOMMENDATION: Routine screening mammogram in 1 year. Bilateral CANCER RISK ASSESSMENT: This risk assessment is based on patient provided information collected in a risk survey taken at the time of this examination. LIFETIME BREAST CANCER RISK: Suzie: 4.3 % - If greater than or equal to 20%, consider annual mammogram and annual screening Breast MRI or follow up in high risk clinic. Is the patient at elevated risk based on the HBOC criteria? NCCN HBOC Guidelines: 0 % (Hereditary Breast and Ovarian Cancer) - If 100%, consider genetic counseling and testing with high risk follow up. Is the patient at elevated risk based on the Hernandez Syndrome criteria? NCCN Hernandez: 0 % - If 100%, consider genetic counseling and testing with high risk follow up. Report Dictated on Electronically Signed By: Pepe Darby MD Electronically Signed Date/Time: 02/19/2023 1:04 PM EDT [facility] Patient Name: ANGEL BARBOZA : 1950 Exam Date/Time: 02/07/2023 10:50 Procedure: BI MAMMOGRAM SCREENING TOMOSYNTHESIS BILATERAL Ordering Provider: SEBASTIAN BRETT Reason For Exam: z12.31 Image views: 2D Bilateral CC and MLO views were acquired. 3D Bilateral CC and MLO views were acquired. Images were reviewed with CAD. Markings on images: BB's = Nipples; skin lesions Open shawnee = Palpable Line = Scar COMPARISON: 2020; 2014 TISSUE DENSITY: BIRADS B - There are scattered fibroglandular densities. FINDINGS: There are post surgical changes in both breasts. No suspicious masses, architectural distortions or suspiciously clustered microcalcifications are identified. There are no significant changes when compared with prior studies. [facility] Pepe Darby MD - 02/19/2023 Patient Name: ANGEL BARBOZA : 1950 Exam Date/Time: 02/07/2023 10:50 Procedure: BI MAMMOGRAM SCREENING TOMOSYNTHESIS BILATERAL Ordering Provider: SEBASTIAN BRETT Reason For Exam: z12.31 Image views: 2D Bilateral CC and MLO views were acquired. 3D Bilateral CC and MLO views were acquired. Images were reviewed with CAD. Markings on images: BB's = Nipples; skin lesions Open shawnee = Palpable Line = Scar COMPARISON: 2020; 2016; 2014 TISSUE DENSITY: BIRADS B - There are scattered fibroglandular densities. FINDINGS: There are post surgical changes in both breasts. No suspicious masses, architectural distortions or suspiciously clustered microcalcifications are identified. There are no significant changes when compared with prior studies. IMPRESSION: No mammographic evidence of malignancy. ASSESSMENT: Category 2 Benign RECOMMENDATION: Routine screening mammogram in 1 year. Bilateral CANCER RISK ASSESSMENT: This risk assessment is based on patient provided information collected in a risk survey taken at the time of this examination. LIFETIME BREAST CANCER RISK: Angeler-Eleazarzick: 4.3 % - If greater than or equal to 20%, consider annual mammogram and annual screening Breast MRI or follow up in high risk clinic. Is the patient at elevated risk based on the HBOC criteria? NCCN HBOC Guidelines: 0 % (Hereditary Breast and Ovarian Cancer) - If 100%, consider genetic counseling and testing with high risk follow up. Is the patient at elevated risk based on the Hernandez Syndrome criteria? NCCN Hernandez: 0 % - If 100%, consider genetic counseling and testing with high risk follow up. Report Dictated on Electronically Signed By: Pepe Darby MD Electronically Signed Date/Time: 02/19/2023 1:04 PM EDT [facility] DBT Breast - bilateral scree Tanirdered By: Pepe Darby on 02-19-2023 [facility] Work Phone: DBT Breast - bilateral scree ningon 02-07-2023 Radiology Study observation (narrative) [facility] 12-12-2022 Bili Indirect 0.5 mg/dL Normal [facility] ([place]) Comment on above: Performed By: #### H FP, LIPID #### Carli [address] [address] Albumin Level 3.6 G/dL Normal 3.4-4.8 [facility] ([place]) Comment on above: Performed By: #### H FP, LIPID #### Carli [address] [address] Albumin/Globulin [Mass ratio] 1.2 {ratio} Normal 1.1-2.5 [facility] ([place]) Comment on above: Performed By: #### H FP, LIPID #### [address] [address] ALP [Catalytic activity/Vol] 98 U/L Normal 40-135 [facility] ([place]) Comment on above: Performed By: #### H FP, LIPID #### [address] [address] ALT [Catalytic activity/Vol] 22 U/L Normal 14-59 [facility] ([place]) Comment on above: Performed By: #### H FP, LIPID #### [address] [address] AST [Catalytic activity/Vol] 18 U/L Normal 10-40 [facility] ([place]) Comment on above: Performed By: #### H FP, LIPID #### [address] [address] Bili Direct 0.2 mg/dL Normal 0.0-0.2 [facility] ([place]) Comment on above: Result Comment: Use of this assay is not recommended for patients undergoing treatment with eltrombopag due to the potential for falsely elevated results. Performed By: #### H FP, LIPID #### [address] [address] Bili Total 0.7 mg/dL Normal 0.2-1.0 [facility] ([place]) Comment on above: Result Comment: Use of this assay is not recommended for patients undergoing treatment with eltrombopag due to the potential for falsely elevated results. Performed By: #### H FP, LIPID #### [address] [address] Globulin 3.1 G/dL Normal [facility] ([place]) Comment on above: Performed By: #### H FP, LIPID #### [address] [address] Total Protein 6.7 G/dL Normal 6.4-8.2 [facility] ([place]) Comment on above: Performed By: #### H FP, LIPID #### [address] [address] LABORATORYOrdered By: SYSTEM SYSTEM on 12-12-2022 Albumin BCP dye [Mass/Vol] 3.6 G/dL Invalid Interpretation Code 3.4 - 4.8 G/dL AO ADM SS Albumin/Globulin [Mass ratio] 1.2 {ratio} Invalid Interpretation Code 1.1 - 2.5 ratio AO ADM SS ALP [Catalytic activity/Vol] 98 U/L Invalid Interpretation Code 40 - 135 U/L AO ADM SS ALT With P-5'-P [Catalytic activity/Vol] 22 U/L Invalid Interpretation Code 14 - 59 U/L AO ADM SS AST With P-5'-P [Catalytic activity/Vol] 18 U/L Invalid Interpretation Code 10 - 40 U/L AO ADM SS Bilirubin [Mass/Vol] 0.7 mg/dL Invalid Interpretation Code 0.2 - 1.0 mg/dL AO ADM SS Bilirubin.direct [Mass/Vol] 0.2 mg/dL Invalid Interpretation Code 0.0 - 0.2 mg/dL AO ADM SS Bilirubin.direct [Mass/Vol] 0.5 mg/dL Invalid Interpretation Code AO Chemistry S Globulin 3.1 G/dL Invalid Interpretation Code AO ADM SS Protein [Mass/Vol] 6.7 G/dL Invalid Interpretation Code 6.4 - 8.2 G/dL AO ADM SS LABORATORYOrdered By: Laura Villegas on 12-12-2022 Cholesterol [Mass/Vol] 166 mg/dL Invalid Interpretation Code 0 - 200 mg/dL AO ADM SS Cholesterol in HDL [Mass/Vol] 60 mg/dL Invalid Interpretation Code 40 - 60 mg/dL AO ADM SS Cholesterol in LDL [Mass/Vol] 89 mg/dL Invalid Interpretation Code 0 - 130 mg/dL AO ADM SS Triglyceride [Mass/Vol] 83 mg/dL Invalid Interpretation Code 0 - 150 mg/dL AO ADM SS LIPIDon 12-12-2022 Cholesterol [Mass/Vol] 166 mg/dL Normal 0-200 [facility] [place] Comment on above: Result Comment: Chol esterol Reference Interval: Less than 200 Desirable 200-239 Borderline high risk 240 and above High risk Performed By: #### H FP, LIPID #### [address] [place], [place] [address] Cholesterol in HDL [Mass/Vol] 60 mg/dL Normal 40-60 [facility] ([place]) Comment on above: Performed By: #### H FP, LIPID #### [address] [place], [place] [address] Cholesterol in LDL [Mass/Vol] 89 mg/dL Normal 0-130 [facility] ([place]) Comment on above: Performed By: #### H FP, LIPID #### [address] [place], [place] [address] Triglyceride [Mass/Vol] 83 mg/dL Normal 0-150 A [facility] ([place]) Comment on above: Result Comment: Trig lyceride Reference Interval: Less than 150 Normal 150-199 Borderline high risk 200-499 High risk 500 or higher Very high risk Performed By: #### H FP, LIPID #### [address] [place], [place] [address] LABORATORYOrdered By: Johanny Reddy on 05-31-2021 Albumin BCP dye [Mass/Vol] 4.0 G/dL Invalid Interpretation Code 3.4 - 4.8 G/dL AO ADM SS Albumin/Globulin [Mass ratio] 1.4 {ratio} Invalid Interpretation Code 1.1 - 2.5 ratio AO ADM SS ALP [Catalytic activity/Vol] 93 U/L Invalid Interpretation Code 40 - 135 U/L AO ADM SS ALT With P-5'-P [Catalytic activity/Vol] 34 U/L Invalid Interpretation Code 14 - 59 U/L AO ADM SS AST With P-5'-P [Catalytic activity/Vol] 23 U/L Invalid Interpretation Code 10 - 40 U/L AO ADM SS Bilirubin [Mass/Vol] 1.0 mg/dL Invalid Interpretation Code 0.2 - 1.0 mg/dL AO ADM SS Bilirubin.direct [Mass/Vol] 0.2 mg/dL Invalid Interpretation Code 0.0 - 0.2 mg/dL AO ADM SS Cholesterol [Mass/Vol] 158 mg/dL Invalid Interpretation Code 0 - 200 mg/dL AO ADM SS Cholesterol in HDL [Mass/Vol] 55 mg/dL Invalid Interpretation Code 40 - 60 mg/dL AO ADM SS Cholesterol in LDL [Mass/Vol] 86 mg/dL Invalid Interpretation Code 0 - 130 mg/dL AO ADM SS Globulin 2.9 G/dL Invalid Interpretation Code AO ADM SS Protein [Mass/Vol] 6.9 G/dL Invalid Interpretation Code 6.4 - 8.2 G/dL AO ADM SS Triglyceride [Mass/Vol] 83 mg/dL Invalid Interpretation Code 0 - 150 mg/dL AO ADM SS LABORATORYOrdered By: Grace Howard on 05-31-2021 Bili Indirect 0.8 mg/dL Invalid Interpretation Code AO Chemistry S Vital Signs Date Time Vital Sign Value Performing Clinician Kevin ellis 12-10-2024 13:41-0400 Body height 167.[address] Pk Sebastian DO Work Phone: [facility] 12-10-2024 13:41-0400 Body mass index (BMI) [Ratio] 21.9 kg/m2 Dr. Pk Sebastian DO Work Phone: [facility] 12-10-2024 13:41-0400 Body temperature 98.2 [degF] Dr. Pk Sebastian DO Work Phone: [facility] 12-10-2024 13:41-0400 Body weight 61.[address] Pk Sebastian DO Work Phone: [facility] 12-10-2024 13:41-0400 Diastolic blood pressure 60 mm[Hg] Dr. Pk Sebastian DO Work Phone: [facility] 12-10-2024 13:41-0400 Heart rate 60 /min Dr. Pk Sebastian DO Work Phone: [facility] 12-10-2024 13:41-0400 Respiratory rate 16 /min Dr. Pk Sebastian DO Work Phone: [facility] 12-10-2024 13:41-0400 SaO2% (BldA) [Mass fraction] 99 % Dr. Pk Sebastian DO Work Phone: [facility] 12-10-2024 13:41-0400 Systolic blood pressure 167 mm[Hg] Dr. Pk Sebastian DO Work Phone: [facility] 10-29-2024 12:51-0400 Body mass index (BMI) [Ratio] 22.1 kg/m2 Dr. Pk Sebastian DO Work Phone: [facility] 10-29-2024 12:51-0400 Body weight 62.[address] Pk Sebastian DO Work Phone: [facility] 10-29-2024 12:51-0400 Diastolic blood pressure 67 mm[Hg] Dr. Pk Sebastian DO Work Phone: [facility] 10-29-2024 12:51-0400 Heart rate 48 /min Dr. Pk Sebastian DO Work Phone: [facility] 10-29-2024 12:51-0400 Respiratory rate 16 /min Dr. Pk Sebastian DO Work Phone: [facility] 10-29-2024 12:51-0400 Systolic blood pressure 150 mm[Hg] Dr. Pk Sebastian DO Work Phone: [facility] 09-10-2023 13:39-0500 Body height 167.[address] Pk Sebastian Work Phone: [facility] 09-10-2023 13:39-0500 Body mass index (BMI) [Ratio] 23.1 kg/m2 Dr. Pk Sebastian Work Phone: [facility] 09-10-2023 13:39-0500 Body weight 64.[address] Pk Sebastian Work Phone: [facility] 09-10-2023 13:39-0500 Diastolic blood pressure 67 mm[Hg] Dr. Pk Sebastian Work Phone: [facility] 09-10-2023 13:39-0500 Heart rate 52 /min Dr. Pk Sebastian Work Phone: [facility] 09-10-2023 13:39-0500 Respiratory rate 18 /min Dr. Pk Sebastian Work Phone: [facility] 09-10-2023 13:39-0500 SaO2% (BldA) [Mass fraction] 99 % Dr. Pk Sebastian Work Phone: [facility] 09-10-2023 13:39-0500 Systolic blood pressure 121 mm[Hg] Dr. Pk Sebastian Work Phone: [facility] 02-07-2023 10:34-0400 Body height 167.6 cm Pk Romulo DO Work Phone: [facility] 02-07-2023 10:34-0400 Body mass index (BMI) [Ratio] 23.4 kg/m2 Pk Romulo DO Work Phone: [facility] 02-07-2023 10:34-0400 Body weight 65.77 kg Pk Romulo DO Work Phone: [facility] 12-27-2022 14:05-0400 Body weight 65.[address] Pk Sebastian Work Phone: [facility] 12-27-2022 14:05-0400 Diastolic blood pressure 62 mm[Hg] Dr. Pk Sebastian Work Phone: [facility] 12-27-2022 14:05-0400 Heart rate 48 /min Dr. Pk Sebastian Work Phone: [facility] 12-27-2022 14:05-0400 Respiratory rate 14 /min Dr. Pk Sebastian Work Phone: [facility] 12-27-2022 14:05-0400 Systolic blood pressure 128 mm[Hg] Dr. Pk Sebastian Work Phone: [facility] 12-27-2022 08:53-0400 Body height 167.[address] Pk Sebastian Work Phone: [facility] 04-03-2022 13:45-0400 Body height 167.[address] Pk Sebastian Work Phone: [facility] Work Phone: 04-03-2022 13:45-0400 Body mass index (BMI) [Ratio] 23.6 kg/m2 Dr. Pk Sebastian Work Phone: [facility] Work Phone: 04-03-2022 13:45-0400 Body weight 66.[address] Pk Sebastian Work Phone: [facility] Work Phone: 04-03-2022 13:45-0400 Diastolic blood pressure 56 mm[Hg] Dr. Pk Sebastian Work Phone: [facility] Work Phone: 04-03-2022 13:45-0400 Heart rate 46 /min Dr. Pk Sebastian Work Phone: [facility] Work Phone: 04-03-2022 13:45-0400 Respiratory rate 16 /min Dr. Pk Sebastian Work Phone: [facility] Work Phone: 04-03-2022 13:45-0400 Systolic blood pressure 142 mm[Hg] Dr. Pk Sebastian Work Phone: [facility] Work Phone: Encounters Encounter Date Encounter Type Care Provider Facility Start: 01-12-2025 ambulatory [facility] Facility:[facility] Start: 12-15-2024 End: 12-15-[address] Pk Sebastian DO Work Phone: [facility] Work Phone: Start: 12-15-2024 End: 12-15-2024 Patient encounter procedure Karis Ceron [facility] [place] Work Phone: Start: 12-15-2024 End: 12-15-2024 ambulatory Karis Franko Facility:[facility] Start: 12-10-2024 End: 12-10-[address] Brandon Oropeza MD -[facility] Work Phone: Start: 12-10-2024 End: 12-10-[address] Pk Sebastian DO Work Phone: [facility] Work Phone: Start: 11-03-2024 End: 11-03-2024 Patient encounter procedure Patricia TORREZ -[facility] Work Phone: Start: 11-03-2024 End: 11-03-2024 ambulatory Patricai Evans Facility:[facility] Start: 10-29-2024 End: 10-29-[address] Salo Vasquez MD -[facility] Work Phone: Start: 10-29-2024 End: 10-29-2024 ambulatory Pk Romulo Facility:[facility] Start: 08-04-2024 End: 08-04-2024 ambulatory Pk Romulo Facility:[facility] Start: 06-29-2024 End: 06-29-[address] [facility] Start: 06-29-2024 End: 06-29-[address] PK SEBASTIAN DO [facility] Start: 04-02-2024 ambulatory Pk Romulo Facility:[facility] Start: 04-02-2024 End: 04-02-[address] PK [facility]BASTIAN [facility] Start: 04-02-2024 End: 04-02-[address] PK SEBASTIAN DO [facility] Start: 04-02-2024 End: 04-02-2024 ambulatory Edison TUTTLE Facility:[facility] Start: 03-12-2024 End: 03-12-2024 ambulatory Pk Romulo Facility:[facility] Start: 01-21-2024 ambulatory Pk Romulo Facility:[facility] Start: 01-21-2024 End: 01-21-2024 ambulatory Pk Romulo Facility:[facility] Start: 11-04-2023 End: 11-04-[address] Pk Sebastian Work Phone: [facility] Work Phone: Start: 11-04-2023 End: 11-04-[address] Pk Sebastian Work Phone: [facility]-Physical Therapy Work Phone: Start: 09-13-2023 End: 09-14-[address] PK SEBASTIAN DO Facility:B Start: 09-13-2023 End: 09-13-2023 Patient encounter procedure MS EDISON Deluca KALE PA [facility] Start: 09-10-2023 End: 09-10-[address] Pk Sebastian Work Phone: [facility] Work Phone: Start: 02-07-2023 End: 02-08-2023 ambulatory PKTERESA SEBASTIAN [facility] Start: 02-07-2023 End: 02-07-2023 Subsequent hospital visit by physician Pk Sebastian DO Work Phone: [facility] Comment on above: Encounter for screen ing mammogram for malignant neoplasm of breast Start: 01-28-2023 Transcribe Orders Pk Sebastian DO Work Phone: [facility] Comment on above: Encounter for screen ing mammogram for malignant neoplasm of breast (Primary Dx) Start: 01-10-2023 Non-patient / Non-visit Dr. Pk Sebastian Work Phone: [facility] Start: 01-10-2023 Non-patient / Non-visit Dr. Pk Sebastian Work Phone: [facility] Start: 01-10-2023 End: 01-10-[address] Pk Sebastian Work Phone: [facility] Work Phone: Start: 01-10-2023 End: 01-10-[address] Pk Sebastian Work Phone: [facility]-Cardiovascular Services Work Phone: Start: 12-27-2022 End: 12-27-[address] Pk Sebastian Work Phone: [facility] Work Phone: Start: 12-12-2022 End: 12-13-[address] PK SEBASTIAN DO Facility:[facility] Start: 12-12-2022 End: 12-12-2022 Patient encounter procedure MS EDISON Deluca KALE [facility] Start: 06-14-2022 End: 06-14-[address] Pk Sebastian Work Phone: [facility] Work Phone: Start: 06-14-2022 End: 06-14-[address] Pk Sebastian Work Phone: [facility]-Pulmonary Services/Neurology Start: 05-25-2022 End: 05-25-[address] PK SEBASTIAN DO [facility] Start: 04-12-2022 End: 04-12-[address] Pk Sebastian Work Phone: [facility] Work Phone: Start: 04-12-2022 End: 04-12-[address] Pk Sebastian Work Phone: [facility]-Occupational Therapy Start: 04-12-[address] Pk Sebastian [facility] Start: 04-03-2022 End: 04-03-[address] Pk Sebastian Work Phone: [facility] Start: 11-02-2021 End: 02-06-[address] ARMINDA BROOKS DO [facility] Start: 05-31-2021 End: 05-31-2021 Patient encounter procedure OTTONIEL AMARO IVORY [facility] Procedures Date Procedure Procedure Detail Performing Clinician Start: 02-07-2023 Myke vidales DO Work Phone: Start: 01-10-2023 Radionuclide imaging of perfusion of myocardium under exercise stress Dr. Pk Sebastian Work Phone: Start: 07-28-2018 Cardiac catheterization OTTONIEL AMARO CNP Start: 07-10-2017 Total replacement of hip OTTONIEL PREM DODSON Comment on above: Left Hip Start: 07-10-2011 Dilation and curettage OTTONIEL PREM DODSON Start: 03-17-2010 History of placement of stent for coronary artery disease History of coronary artery stent placement Dr. Pk Sebastian Work Phone: Comment on above: PCI-[facility]-Mid LCx w/ 3 .5 x 8 mm and upstream w/ a 3.5 x 16 mm Veriflex Stent 03/17/2010 Start: 03-15-2010 Dilatation (morpholo gic abnormality) OTTONIEL AMARO CNP Comment on above: coronary artery Start: 05-31-2008 History of coronary artery bypass grafting H/O coronary artery bypass surgery Dr. Salo Vasquez MD Comment on above: CABG x 3: Sequential HENDRICKSON-LAD and D1, SVG-Ramus 05/31/2008 Start: 07-15-2007 Coronary artery bypa ss grafts x 3 OTTONIEL PREM GEOGRAPHIC INFORMATION SCIENTIST History of coronary artery bypass grafting Hx of CABG x3( Confirmed ) OTTONIEL AMARO CNP History of operative procedure on knee History of bilateral knee replacement( Confirmed ) OTTONIEL AMARO CNP Plan of Treatment Date Care Activity Detail Author Start: 02-08-2024 Screening for malign ant neoplasm of breast Mammogram [facility] Start: 09-24-2023 DTaP/Tdap/Td Vaccine s (2 - Td or Tdap) DTaP/Tdap/Td Vaccines (2 - Td or Tdap) [facility] Start: 03-15-2023 Influenza vaccination Influenza Vacc ine (#1) [facility] Start: 01-28-2022 COVID-19 Vaccine (5 - Booster for Moderna series) COVID-19 Vaccine (5 - Booster for Moderna series) [facility] Start: 01-28-2022 COVID-19 Vaccine (5 - Moderna series) COVID-19 Vaccine (5 - Moderna series) [facility] Start: 11-18-2013 Zoster Vaccines (2 of 3) Zoste r Vaccines (2 of 3) [facility] Start: 1988 Screening for malign ant neoplasm of breast Mammogram [facility] Start: 1966 Hepatitis C screening Hepatitis C Sc reening [facility] Start: 1960 Depression Screening Depression Scre ening [facility] Start: 1948 Lipid panel Lipid Panel [facility] Start: 1948 Medicare Advantage Annual Wellness Visit (AWV) Medicare Advantage Annual Wellness Visit (AWV) [facility] Start: 1948 Screening for malign ant neoplasm of colon [facility] Start: 1948 Screening for osteoporosis Bone Density Scan [facility] End: 02-07-2023 DBT Breast - bilateral screening [facility] Work Phone: Comment on above: Once for 1 Occurrenc es starting 02/07/2023 until 02/07/2023 Lipid 1996 panel - S pascual or Plasma [facility] Work Phone: Lipid 1996 panel - S pascual or Plasma [facility] US Carotid arteries [facility] Immunizations Immunization Date Immunization Notes Care Provider Karley mitchell 07-01-2022 influenza virus vacc ine, unspecified formulation Pk Sebastian DO Work Phone: [facility] 12-03-2021 SARS-CoV-2 (COVID-19 ) mRNA-[address] ARMINDA BROOKS DO [facility] 05-30-2021 SARS-CoV-2 (COVID-19 ) mRNA-[address] ARMINDA BROOKS DO [facility] 10-13-2020 COVID-19, mRNA, LNP- S, PF, 100 mcg/ 0.5 mL dose; Translations: [Moderna COVID-19 Vaccine] OTTONIEL 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 [facility] 09-15-2020 COVID-19, mRNA, LNP- S, PF, 100 mcg/ 0.5 mL dose; Translations: [Moderna COVID-19 Vaccine] OTTONIEL 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 [facility] 08-04-2020 influenza virus vacc ine, unspecified formulation OTTONIEL 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 [facility] 08-04-2020 pneumococcal conjuga te vaccine, 13 valent OTTONIEL 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 [facility] 05-23-2018 influenza virus vacc ine, unspecified formulation OTTONIEL 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 [facility] 11-25-2013 pneumococcal polysaccharide vaccine, 23 valent OTTONIEL 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 [facility] 09-23-2013 tetanus toxoid, redu tonya diphtheria toxoid, and acellular pertussis vaccine, adsorbed OTTONIEL 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 [facility] 09-23-2013 zoster vaccine, live OTTONIEL GREWAL GEOGRAPHIC INFORMATION SCIENTIST [facility] Payers Date Payer Category Payer Self-pay [id number] 2022 Medicare [employer] RE [employer] SECURE [id number] 2022-Present [address] [place] [address] Medicare HMO [id number] 2022 Unknown [id number] 2013 Medicare MEDICARE PART A B [id number] 1948 Unknown [id number] .[id number] 1948 Unknown [id number] [id number] .2.627 1948 Unknown [id number] [id number] .2.627 1950 Unknown [id number] [facility] MEDICARE [id number] Medicare O MEDICARE [id number] Private Health Insurance [employer] SR SUPPLEM ENT INS [id number] Unknown [id number] .2.462 Unknown [id number] 2.16.840.1.253304.3.579 .2.462 Unknown [id number] [id number] .2.462 Unknown [id number] [id number] .2.462 Unknown [id number] 2.16.840.1.225594.3.579 .2.462 Unknown [id number] 2.16.840.1.662506.3.579 .2.462 Unknown [id number] [id number] .2.462 Unknown [id number] [id number] .2.462 Unknown [id number] [id number] .2.462 Unknown [id number] [id number] .2.462 Unknown [id number] [id number] .2.462 Social History Date Type Detail Facility Start: 03-12-2019 End: 11-03-2024 Never smoked tobacco (finding) [facility] Comment on above: No Tobacco/Smoke Exp osure Start: 1950 Sex Assigned At Female [facility] Start: 04-03-2022 End: 09-10-2023 Tobacco smoking status NHIS Unknown if ever smoked [facility] Start: 07-28-2018 Non-smoker [facility] Start: 02-07-2023 Tobacco use and exposure Smokeless tobacco non-user [facility] Start: 1950 Sex Assigned At Not on file [facility] Start: 02-07-2023 Gender identity Not on file [facility] Start: 01-28-2023 End: 02-07-2023 Exposure to SARS-CoV-2 (event) Not sure [facility] Start: 02-07-2023 History of Social function [facility] Medical Equipment Procedure Code Equipment Code Equipment Origin al Text Equipment Identifier Dates 3.3MM DRILL FDA Start: 07-10-2017 ACCOLADE II ANGL E HIP STEM FDA Start: 07-10-2017 BIOLOX DELTA CER AMIC FEM HEAD FDA Start: 07-10-2017 TRIDENT FRED ACETABULAR SHELL FDA Start: 07-10-2017 TRIDENT X3 0D PO LY INSERT FDA Start: 07-10-2017 3.3MM DRILL FDA Start: 07-10-2017 ACCOLADE II ANGL E HIP STEM FDA Start: 07-10-2017 BIOLOX DELTA CER AMIC FEM HEAD FDA Start: 07-10-2017 TRIDENT FRED ACETABULAR SHELL FDA Start: 07-10-2017 TRIDENT X3 0D PO LY INSERT FDA Start: 07-10-2017 3.3MM DRILL FDA Start: 07-10-2017 ACCOLADE II ANGL E HIP STEM FDA Start: 07-10-2017 BIOLOX DELTA CER AMIC FEM HEAD FDA Start: 07-10-2017 TRIDENT FRED ACETABULAR SHELL FDA Start: 07-10-2017 TRIDENT X3 0D PO LY INSERT FDA Start: 07-10-2017 3.3MM DRILL FDA Start: 07-10-2017 ACCOLADE II ANGL E HIP STEM FDA Start: 07-10-2017 BIOLOX DELTA CER AMIC FEM HEAD FDA Start: 07-10-2017 TRIDENT FRED ACETABULAR SHELL FDA Start: 07-10-2017 TRIDENT X3 0D PO LY INSERT FDA Start: 07-10-2017 3.3MM DRILL FDA Start: 07-10-2017 ACCOLADE II ANGL E HIP STEM FDA Start: 07-10-2017 BIOLOX DELTA CER AMIC FEM HEAD FDA Start: 07-10-2017 TRIDENT FRED ACETABULAR SHELL FDA Start: 07-10-2017 TRIDENT X3 0D PO LY INSERT FDA Start: 07-10-2017 3.3MM DRILL FDA Start: 07-10-2017 ACCOLADE II ANGL E HIP STEM FDA Start: 07-10-2017 BIOLOX DELTA CER AMIC FEM HEAD FDA Start: 07-10-2017 TRIDENT FRED ACETABULAR SHELL FDA Start: 07-10-2017 TRIDENT X3 0D PO LY INSERT FDA Start: 07-10-2017 Functional Status Date Assessment Result Facility 11-02-2021 Functional Status Objective: Observation: Mild flat lumbar lordosis. Sensation: Grossly intact and symmetrical light touch bilat LEs Cardiovascular screen: BP :130/60 HR: 42 O2 sat: 99% Reflexes: Quads R NT per patient preference: L: NT per patient preference Achilles R:1+ L: 1+ Trunk AROM: Flex: no loss Ext: mod loss ERP SGIS: R: mod loss L: Mod loss Palpation: Denies tenderness to palpation lumbar central spine and lumbar paraspinals grossly. Special Tests: Slump: - [facility] Clinical Notes 05-31-2008 to 10-29-2024 Note Date & Type Note Facility 10-29-2024 Evaluation note Diagnosis Onset Date Resolution Aortic stenosis acute October 12:49pm Carotid bruit present acute October 29, 2024 12:49pm Essential (primary) hypertension chronic October 29, 2024 12:49pm Hyperlipidemia chronic October 12:49pm H/O coronary artery bypass surgery May 31, 2008 resolved October 29, 2024 12:49pm Cutaneous tag, hemorrhoidal acute November 03, 2024 8:12am [facility] Work Phone: 1(439) 564-419504-17-2025 Evaluation note* Diagnosis Onset Date Resolution Status Admit Date Aortic stenosis acute October 12:49pm Carotid bruit present acute Apr 2024 12:49pm Essential (primary) hypertension chronic October 29, 2024 12:49pm Hyperlipidemia chronic October 12:49pm H/O coronary artery bypass surgery May 31, 2008 resolved October 29, 2024 12:49pm Cutaneous tag, hemorrhoidal acute November 03, 2024 8:12am Aphasia chronic December 10, 2024 1:42pm Executive function deficit suspected December 10, 2024 1:42pm Memory change suspected December 10, 2 025 1:42pm [facility] Work Phone: 1(285) 995-131912-16-2024 Note ORIGINAL EXAMINATION: BONE DENSITOMETRY 06/29/2024 1:39 pm TECHNIQUE: A bone density dual x-ray absorptiometry (DEXA) scan was performed of the axial (e.g. hips, spine) and/or appendicular (e.g. radius) skeleton as appropriate. COMPARISON: 11/25/2020. HISTORY: ORDERING SYSTEM PROVIDED HISTORY: Reason for Exam: Osteoporosis Screening FINDINGS: T Score Right Forearm: -0.8 Right Forearm: 0.638 (g/cm2) T Score Lumbar Spine: 1.7 Lumbar Spine: 1.238 (g/cmd2) BMD Change from previous Lumbar Spine: -0.7% IMPRESSION: Normal bone mineral density by WHO criteria. World Health Organization criteria: (Comparing with young normal sex matched population) - Normal: T-score at or above -1 SD (standard deviation) - Osteopenia: T-score between -1 and -2.5 SD - Osteoporosis: T-score at or below -2.5 SD The NOF recommends that FDA-approved medical therapies be considered in post-menopausal women and men age >/= 50 years with a: * Hip or vertebral fracture, or * T-score of /= 20% for major osteoporotic fractures or * >/= 3% for hip fractures All treatment decisions require clinical judgement and consideration of individual patient factors, including patient preferences, comorbidities, previous drug use, risk factors not captured in the FRAX registered model (e.g., frailty, falls, vitamin D deficiency, increased bone turnover, interval significant decline in bone density) and possible under- or over-estimation of fracture risk by FRAX. Interpreted by: Vin Collado DO Preliminary Report By: Vin Collado DO Electronically signed By Vin Collado DO Dictated Date: 06/29/2024 1:54:01 PM Prelim Date: 06/29/2024 1:54:43 PM Sign Date: 06/29/2024 1:54:43 PM Ordering Provider: [facility]04-22-2024 Discharge summary Author Ted Ackerman [facility] November 04, 2023 10:50am Note Date/Time November 04, 2023 10: 50am [facility] Physical Therapy [facility] [address] [place] [address]. [address] [place] [address] / REHABILITATION SERVICES DISCHARGE SUMMARY MR#: [id number] Acct: [id number] Name: ANGEL BARBOZA You Rep #: [id number] : 1950 73 From: Ted Ackerman DPT, OCS, CSCS Referring Dr.: Dr. Arminda Brooks DO Status: REG RCR Insurance: [employer] SELF PAY INSURANCE Discharge Summary D/C summary: It has been my pleasure to treat ANGEL BARBOZA referred by Dr. Arminda Brooks DO, with the diagnosis of L shoulder pain impingement syndrome for a total of 8 visit(s). Discharge Date: 11/04/23 Please see the following information for a summary of their discharge status. Subjective Subjective: Shoulder is doing great. I did all my homework. No real pain, alot better. Has some pain 1/10 and manageable. IR much better. Activities are pretty normal, has not been golfing. Doing water exercises. It has helped. Pain L shoulder: Pain Intensity (Out of 10): 3 Overall Improvement % Improvement: 80 Objective Objective/Function: Full aROM symmetrical to R(right one shows much crepitus). strengfth is symmetrical in flexion, abd, IR and bi/tri to R at 4/5 and er slightly weaker at 4- L and 4 R. Only pain is with er in 90 abducted position and it is transient Goals Goal 1:: Full aROM L shoulder without pain Goal Progress: Goal Met Goal 2:: Patient able to get dressed without noticing L shoulder Goal Progress: Goal Met Goal 3:: Sleep without interruption at night Goal Progress: Goal Met Goal 4:: Patient feel 90% better in overall activities with shoulder Goal Progress: 80% Goal 5:: Quickdash score 15 or better Goal Progress: Goal Met Plan Plan: d/c to HEP D/C Information Discharge Comments: She cancelled visit with doctor as she is doing very well. Will continue via HEP and contact doctor office if worsens. d/c sentence: If there are questions or concerns regarding this patient's physical therapy, please feel free to call me at [phone]. Thank you for the referral of thispatient. Sincerely, Ted Ackerman, CHRIS, OCS, CSCS Balance/Gait/Functional tests Balance/Special Test Scores Quick DASH Score: 6.8175 Improvement % Improvement: 80 <Electronically signed by Ted Ackerman DPT, KELLEY, CSCS> 11/04/23 1050 CC: Dr. kP Sebastian DO; Dr. Arminda Brooks DO ~ EBG Signed [facility] Work Phone: 1(956) 920-360011-17-2008 Evaluation note* Diagnosis Onset Date Resolution Status Cardiac murmur acute Essential (primary) hypertension chronic Hyperlipidemia chronic H/O coronary artery bypass surgery May 31, 2008 resolved [facility] Work Phone: 1(338) 554-560411-17-2008 Evaluation note* Diagnosis Onset Date Resolution Status Carotid bruit present acute Essential (primary) hypertension chronic Hyperlipidemia chronic H/O coronary artery bypass surgery May 31, 2008 resolved [facility] Work Phone: Evaluation + Plan note No data available for this section [facility] Evaluation + Plan note Future Appointments Appointment Date:05/30/2022 01:20:00 PM Scheduled Provider:PK SEBASTIAN DO Location:[facility] Appointment Type:[facility] Evaluation + Plan note Future Appointments Appointment Date:06/19/2024 08:50:00 AM Scheduled Provider:PK SEBASTIAN DO Location:[facility] Appointment Type:[facility] Medicare Future Scheduled Tests Radiology* MA Mammo Screening Bilateral w/ Bry 04/02/24 [facility] Evaluation + Plan note Future Appointments Appointment Date:06/21/2025 09:20:00 AM Scheduled Provider:PK SEBASTIAN DO Location:[facility] Appointment Type:[facility] Medicare Future Scheduled Tests Laboratory* Lipid Profile 06/19/24 * Complete Metabolic Panel 06/19/24 Radiology* MA Mammo Screening Bilateral w/ Bry 04/02/24 [facility] Evaluation note* Diagnosis Encounter for screening mammogram for malignant neoplasm of breast [facility] Diagnosis Encounter for screening mammogram for malignant neoplasm of breast- Primary Encounter for screening mammogram for malignant neoplasm of breast [facility] No data available for this section [facility] Progress note No data available for this section [facility] Reason for referral (narrative)No reason for [facility] Work Phone: Chief Complaint and Reason for Visit Chief Complaint 9 M FU BRACE,OA 1ST [facility] JT R HAND/RX HERE BRADYCARDIA Reason for Visit Cardiac murmur Essential (primary) hypertension Hyperlipidemia H/O coronary artery bypass surgery Chief Complaint 9 M FU CAD Coronary artery disease Reason for Visit Carotid bruit presen t Essential (primary) hypertension Hyperlipidemia H/O coronary artery bypass surgery Chief Complaint 8 m fu LEFT SHOULDER PAIN. RX HERE Reason for Visit Carotid bruit presen t Essential (primary) hypertension Hyperlipidemia H/O coronary artery bypass surgery Chief Complaint Admit Date 1 Y FU October 29, 2024 12: 49pm RECTAL PROLAPSE November 03, 2024 8:1 2am MEMORY ISSUES December 10, 2024 1:42p m Reason for Visit Admit Date Aortic stenosis October 29, 2024 12: 49pm Carotid bruit present October 29, 2024 1 2:49pm Essential (primary) hypertension October 132024 12:49pm Hyperlipidemia October 29, 2024 12: 49pm H/O coronary artery bypass surgery October 29, 2024 12:49pm Cutaneous tag, hemorrhoidal November 03, 2024 8:12am Reason for Visit Admit Date Aortic stenosis October 29, 2024 12: 49pm Carotid bruit present October 29, 2024 1 2:49pm Essential (primary) hypertension October 132024 12:49pm Hyperlipidemia October 29, 2024 12: 49pm H/O coronary artery bypass surgery October 29, 2024 12:49pm Cutaneous tag, hemorrhoidal November 03, 2024 8:12am Aphasia December 10, 2024 1:42p m Executive function deficit December 10 1:42pm Memory change December 10, 2024 1:42p m Family History No Family History Records Found Relationship Condition Age at Onset Recorded Date/T raad father Coronary artery disease Unknown Diabetes mellitus Unknown mother Myocardial infarction Unknown brother Coronary artery disease Unknown brother Malignant neoplasm Unknown Coronary artery disease Unknown History of coronary artery bypass surgery Unknown sister Arthritis Unknown Advance Directives No Advanced Directives Records Found Advance Directive Response Recorded Date/ Time Advance Directives Yes July 28, 2018 10:06am Living Will Yes July 28 10:06am Power of Personal Property Appraiser Yes July 28, 2018 10:06am Advance Directive Response Recorded Date/ Time Advance Directives Yes July 28, 2018 11:06am Living Will Yes July 28 11:06am Power of Personal Property Appraiser Yes July 28, 2018 11:06am Advance Directive Response Recorded Date/ Time Living Will Yes July 28 11:06am Do you have a Healthcare Power of Personal Property Appraiser? Yes July 28, 2018 11:06am Advance Directives Yes July 28, 2018 11:06am Summary Purpose Additional Source Comments Care Team (unrecognized sect ion and content) Care Team Personnel Name: PK SEBASTIAN DO Position: P4 Physician - Primary Care Med Service: Active Provider Member Role: Primary Care Physician Address: Address: [address] [place] [address] Care Team Related Persons Name: FABRICIO GIRARD Care Team Personnel Name: PK SEBASTIAN DO Position: P4 Physician - Primary Care Member Role: Primary Care Physician Address: Address: [address] [place] [address] Care Team Related Persons Name: FABRICIO GIRARD Goals (unrecognized section and content) Goals may be documented in a n alternate section Patient Care team informatio n (unrecognized section and content) Team Status: Active Member Role Status Dates Dr. Pk Sebastian DO Family Provider Active Dr. Pk Sebastian DO Primary Care Provider Active Team Status: Inactive Member Role Status Dates Dr. Pk Sebastian DO Primary Care Provider, Referring Provider Active Dr. Salo Vasquez MD Attending Provider Active Team Status: Active Member Role Status Dates Dr. Pk Sebastian DO Primary Care Provider Active Dr. Salo Vasquez MD Attending Provider, Referring Provider, Other Provider Active Team Status: Active Member Role Status Dates Dr. Pk Sebastian DO Primary Care Provider Active Dr. Ted Almodovar MD Attending Provider Active Team Status: Inactive Member Role Status Dates Dr. Pk Sebastian DO Primary Care Provider Active Dr. Salo Vasquez MD Attending Provider, Referring Pro vider Active Wool Buyer Relationship Specialty Start Date End Date Pk Sebastian DO [address] [phone] PCP - General Family Medicine 01/28/23 Wool Buyer Relationship Specialty Start Date End Date Pk Sebastian DO [address] [facility] [place] [address] PCP - General Family Medicine 01/28/23 Team Status: Inactive Member Role Status Dates Dr. Pk Sebastian DO Primary Care Provider, Referring Provider Active Edison Henley PA, PA Attending Provider Active Team Status: Inactive Member Role Status Dates Dr. Pk Sebastian DO Primary Care Provider Active Dr. Arminda Brooks DO Attending Provider, Referring Provider Active Team Status: Active Member Role Status Dates Karis Ceron INDEPENDENT JEWELER-C Primary Care Provider Active Team Status: Inactive Member Role Status Dates Dr. Pk Sebastian DO Referring Provider Active Start: October 29, 2024 End: October 29, 2024 Dr. Salo Vasquez MD Attending Provider Active S tart: October 29, 2024 End: October 29, 2024 Karis Ceron INDEPENDENT JEWELER-C Primary Care Provider Active Start: October 29, 2024 End: October 29, 2024 Team Status: Inactive Member Role Status Dates Karis Ceron INDEPENDENT JEWELER-C Primary Care Provider Active Start: November 03, 2024 End: November 03, 2024 Karis Ceron NP-C Referring Provider Active St art: November 03, 2024 End: November 03, 2024 Patricia Evans NP-C Attending Provider Active S tart: November 03, 2024 End: November 03, 2024 Team Status: Inactive Member Role Status Dates Dr. Pk Sebastian DO Referring Provider Active Start: December 10, 2024 End: December 10, 2024 Dr. Brandon Oropeza MD Attending Provider Active Start: December 10, 2024 End: December 10, 2024 Karis Ceron INDEPENDENT JEWELER-C Primary Care Provider Active Start: December 10, 2024 End: December 10, 2024 Team Status: Inactive Member Role Status Dates Karis Ceron INDEPENDENT JEWELER-C Primary Care Provider Active Start: December 15, 2024 End: December 15, 2024 SHAN Zimmerman Attending Provider Active St art: December 15, 2024 End: December 15, 2024 SHAN Zimmerman Referring Provider Active St art: December 15, 2024 End: December 15, 2024 INFORMATION SOURCE (unrecogn ized section and content) DATE CREATED AUTHOR 02/20/2023 [facility] DATE CREATED AUTHOR AUTHOR'S ORGANIZ ATION 09/15/2023 [facility] ([place]) DATE CREATED AUTHOR AUTHOR'S ORGANIZ ATION 07/01/2024 [facility] DATE CREATED AUTHOR AUTHOR'S ORGANIZ ATION 01/09/2025 [facility] FOR RECORDS PERTAINING TO PATIENTS WHO ARE OR HAVE BEEN ENROLLED IN A CHEMICAL DEPENDENCY/SUBSTANCEABUSE PROGRAM, SOME INFORMATION MAY BE OMITTED. This clinical summary was aggregated from multiple sources. Caution should be exercised in using it in the provision of clinical care. This summary normalizes information from multiple sources, and as a consequence, information in this document may materially change the coding, format and clinical context of patient data. In addition, data may be omitted in some cases. CLINICAL DECISIONS SHOULD BE BASED ON THE PRIMARY CLINICAL RECORDS. [employer] [facility]. provides no warranty or guarantee of the accuracy or completeness of information in this document.
--- OUTSIDE RECORDS SUMMARY | 2025-01-12 07:03 | XMS RPT_ITS | CCD ---
Author Organization [facility] Care Team Providers Care [employer]her Name Role Phone ROMULO DO, DR PK Orta Primary Care Physician [phone] Romulo, Dr. Naranjo Primary Care Provider [phone] Romulo, Dr. Naranjo Referring Provider [phone] Kale TUTTLE PA Edison Deluca Attending Provider Romulo, Dr. Naranjo Primary Care Provider Romulo, Dr. Naranjo Referring Provider [phone] Salo Vasquez Attending Provider Dr. Ted [...] Kale TUTTLE PA Edison Deluca Attending Provider ROMULO DO, DR PK Orta Attending Unavailabl e ROMULO DO, DR PK Orta Primary Care Unavailabl e ROMULO DO, DR PK Orta Attending Unavailabl e ROMULO DO, DR PK A Primary Care Unavailabl e Romulo DO, Dr. Naranjo Referring Provider Pedro CHO, Dr. Leong Attending Provider [phone] Franko CLERK TYPIST-C, Karis Primary Care Provider [phone] Franko CLERK TYPIST-C, Karis Referring Provider [phone] Nathan CLERK TYPIST-C, Patricia Attending Provider Sandip CHO, Dr. Taylor Attending Provider Franko CLERK TYPIST-C, Karis Attending Provider Romulo, Pk Referring Unavailable [...] Unavail able Ted Almodovar Attending Unavailable Romulo, Kp Primary Care Unavailable Salo Vasquez Attending Unavailable Allergies Allergy Classification Reported Allergen(s) Allergy Type Date of Onset Reaction(s) Facility (13 sources) Isosorbide; Translations: [isosorbide] Drug Allergy 2 Headache (finding) [facility] [place] (13 sources) Morphine; Translations: [morphine] Drug Allergy 2 Nausea (finding) [facility] [place] (2 sources) amLODIPine Drug Allergy 5 Severe swelling, dull ache in chest, BP paradoxically high [facility] (1 source) amLODIPine Drug Allergy 5 [facility] (1 source) Isosorbide Drug Allergy 5 [facility] (1 source) Morphine Drug Allergy 5 [facility] Medications Current Medications Medication Drug Class(es) Dates Sig (Normalized) Sig (Original) amoxicillin 875 mg / clavulanate 125 mg oral tablet (1 source) Penicillin-class Antibacterial Start: 12-11-2022 End: 12-18-2022 take 1 tablet by mouth every twelve hours amoxicillin-clav ulanate 875 mg-125 mg oral tablet 1 tab(s), Oral, q12h, X 7 day(s), # 14 tab(s), 0 Refill(s), 12/18/22 9:42:00 EDT, Pharmacy: [facility] #[id number], Right otitis media, 167, cm, 12/11/22 9:22:00 [...] qDay, # 90 tab(s), 0 Refill(s), Pharmacy: [facility] #[id number], Anxiety, 167, cm, 12/23/23 14:14:00 EDT, Height, [...] 0 Refill(s) Start Date: 09/15/20 Status: Ordered [place]-3 350 mg oral capsule (2 sources) Start: 05-17-2022 take 1 capsule by mouth once daily [place]-3 350 mg oral capsule mg = cap(s), [...] 15, 2018 12:04pm April 08, 2019 2:12pm Grdumaqwa-Tidjn-Kisq-Supox-C at 200-20-5-20 rz-zl-rc-mcg capsule (2 sources) Start: 11-12-2019 End: 08-15-2020 take 1 capsule by mouth once daily Hmdqbfukk-Ewfld-Okwe-Supox-Cat 200-20-5-20 mp-jy-ss-mcg capsule Discontinued 1 NMA PO DAILY November 12, 2019 12:00am August 15, 2020 2:08pm qixuyznkin-bsqyv-suki-supero x dis-catlase 200 mg-20 mg-5 mg-20 mcg cap (4 sources) Start: 11-12-2019 End: 08-15-2020 take 1 capsule by mouth once daily surmipbuto-rbjbo-wppd-superox dis-catlase 200 mg-20 mg-5 mg-20 mcg cap Discontinued 1 CAP PO DAILY November 12, 2019 12:00am August 15, 2020 2:08pm Start: 11-12-2019 End: 08-15-2020 take 1 capsule by mouth once daily fuzauvdjqj-adcbg-wzok-superox dis-catlas e 200 mg-20 mg-5 mg-20 mcg [...] End: 03-22-2021 prednisone 10mg tab (TAPER) Taper 49-15-69-30-20-10 x 1 day, Oral, qAM, # 21 tab(s), 0 Refill(s), Pharmacy: [facility]/pharmacy #[id number], Contact dermatitis, 167, cm, 03/16/21 9:54:00 [...] Coronary atherosclerosis; Translations: [Atherosclerotic heart disease of [place] coronary artery with unspecified angina pectoris] 05-25-2021 [...] (Bld) [Mass fraction] 5.8 % High <=5.6 [facility] Comment on above: Order Comment: 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 RANGLE Result Comment: Norm al < 5.7 % Prediabetic 5.7 - 6.4 % Diabetic >or= 6.5 % Please note range changes. Performed By: #### L 501.9520, L500.4050, L503.0106, L506.0400, L100.0100, L506.0200, L501.9985 ####[facility] [id number] [place], [place], [id number] Hemoglobin A1c percentageOrd ered By: [facility]24 HbA1c (Bld) [Mass fraction] 5.8 % High <5.7 [facility] Comment on above: Normal < 5.7 % Predi abetic 5.7 - 6.4 % Diabetic >or= 6.5 % Please note range changes. Absolute lymphocyte countOrd ered By: [facility] 12-15-2024 Lymphocytes Auto (Unsp spec) [#/Vol] 2.29 10*3/uL 0.83-4.51 [facility] Absolute neutrophil countOrd ered By: [facility] on 12-15-2024 Neutrophils (Bld) [#/Vol] 3.7 10*3/uL 2.0-7.7 [facility] Anion gap in Serum or Plasma Ordered By: [facility] 12-15-2024 Anion gap [Moles/Vol] 15 mmol/L 5-[address] [facility] Automated lymphocyte count a s percentage of total leukocytesOrdered By: [facility] 12-15-2024 Lymphocytes/100 WBC Auto (Unsp spec) 35.1 % 19-41 [facility] BUN/creatinine ratioOrdered By: [facility] on 12-15-2024 Urea nitrogen/Creatinine [Mass ratio] 21.7 mg/mg High 10-20 [facility] Basophil percentageOrdered B y: [facility] on 12-15-2024 Basophils/100 WBC (Bld) 0.6 % 0-1 [facility] Bilirubin, totalOrdered By: [facility] on 12-15-2024 Bilirubin [Mass/Vol] 0.75 mg/dL 0.00-1.30 [facility] CBC W/Diff, Automatedon Absolute Lymph 2.29 X10 3/uL Normal 0.83-4.51 [facility] Comment on above: Performed By: #### L 501.9520, L500.4050, L503.0106, L506.0400, L100.0100, L506.0200, L501.9985 #### [facility] [address] [place], [address] Absolute Neut 3.7 X10 3/uL Normal 2.0-7.7 [facility] Comment on above: Performed By: #### L 501.9520, L500.4050, L503.0106, L506.0400, L100.0100, L506.0200, L501.9985 #### [facility] [address] [place], [address] Basophils/100 WBC (Bld) 0.6 % Normal 0-1 [facility] Comment on above: Performed By: #### L [id number], L500.4050, L503.0106, L506.0400, L100.0100, L506.0200, L501.9985 #### [facility] [address] [place], [address] Eosinophils/100 WBC (Bld) 2.0 % Normal 0-5 [facility] Comment on above: Performed By: #### L 501.9520, L500.4050, L503.0106, L506.0400, L100.0100, L506.0200, L501.9985 #### [facility] [address] [place], [address] Erythrocyte distribution width (RBC) [Ratio] 12.5 % Normal 11.6-14.6 [facility] Comment on above: Performed By: #### L 501.9520, L500.4050, L503.0106, L506.0400, L100.0100, L506.0200, L501.9985 #### [facility] [address] [place], [address] Hematocrit (Bld) [Volume fraction] 40.3 % Normal 37-47 [facility] Comment on above: Performed By: #### L 501.9520, L500.4050, L503.0106, L506.0400, L100.0100, L506.0200, L501.9985 #### [facility] [address] [place], [address] Hemoglobin (Bld) [Mass/Vol] 13.4 g/dL Normal 12.0-15.0 [facility] Comment on above: Performed By: #### L 501.9520, L500.4050, L503.0106, L506.0400, L100.0100, L506.0200, L501.9985 #### [facility] [address] [place], [address] IG% 0.200 Normal 0.0-0.9 [facility] Comment on above: Result Comment: IG% - Immature Granulocytes (promyelocytes, myelocytes and metamyelocytes) > 1% indicates that a LEFT SHIFT is Present. Performed By: #### L 501.9520, L500.4050, L503.0106, L506.0400, L100.0100, L506.0200, L501.9985 #### [facility] [address] [place], [address] Lymphocytes/100 WBC (Bld) 35.1 % Normal 19-41 [facility] Comment on above: Performed By: #### L 501.9520, L500.4050, L503.0106, L506.0400, L100.0100, L506.0200, L501.9985 #### [facility] [address] [place], [address] MCH (RBC) [Entitic mass] 31.6 pg Normal 27.0-32.0 [facility] Comment on above: Performed By: #### L 501.9520, L500.4050, L503.0106, L506.0400, L100.0100, L506.0200, L501.9985 #### [facility] [address] [place], [address] MCHC (RBC) [Mass/Vol] 33.3 g/dL Normal 32-[address] [facility] Comment on above: Performed By: #### L 501.9520, L500.4050, L503.0106, L506.0400, L100.0100, L506.0200, L501.9985 #### [facility] [address] [place], [address] MCV (RBC) [Entitic vol] 95.0 fL Normal 81-99 [facility] Comment on above: Performed By: #### L 501.9520, L500.4050, L503.0106, L506.0400, L100.0100, L506.0200, L501.9985 #### [facility] [address] [place], [address] Monocytes/100 WBC (Bld) 5.2 % Normal 0-10 [facility] Comment on above: Performed By: #### L 501.9520, L500.4050, L503.0106, L506.0400, L100.0100, L506.0200, L501.9985 #### [facility] [address] [place], [address] Neutrophils/100 WBC (Bld) 56.9 % Normal 47-70 [facility] Comment on above: Performed By: #### L 501.9520, L500.4050, L503.0106, L506.0400, L100.0100, L506.0200, L501.9985 #### [facility] [address] [place], [address] Nucleated RBC (Bld) [#/Vol] 0 10*3/uL Normal 0-5 [facility] Comment on above: Performed By: #### L 501.9520, L500.4050, L503.0106, L506.0400, L100.0100, L506.0200, L501.9985 #### [facility] [address] [place], [address] Platelet mean volume (Bld) [Entitic vol] 10.5 fL Normal 6.2-12.0 [facility] Comment on above: Performed By: #### L 501.9520, L500.4050, L503.0106, L506.0400, L100.0100, L506.0200, L501.9985 #### [facility] [address] [place], [address] Platelets (Bld) [#/Vol] 241 10*3/uL Normal 150-450 [facility] Comment on above: Performed By: #### L 501.9520, L500.4050, L503.0106, L506.0400, L100.0100, L506.0200, L501.9985 #### [facility] [address] [place], [address] RBC (Bld) [#/Vol] 4.24 10*6/uL Normal 4.2-5.4 [facility] Comment on above: Performed By: #### L 501.9520, L500.4050, L503.0106, L506.0400, L100.0100, L506.0200, L501.9985 #### [facility] [address] [place], [address] RDW SD 43.7 fl Normal 35.1-43.9 [facility] Comment on above: Performed By: #### L 501.9520, L500.4050, L503.0106, L506.0400, L100.0100, L506.0200, L501.9985 #### [facility] [address] [place], [address] WBC (Bld) [#/Vol] 6.5 10*3/uL Normal 4.4-11.0 [facility] Comment on above: Performed By: #### L 501.9520, L500.4050, L503.0106, L506.0400, L100.0100, L506.0200, L501.9985 #### [facility] [address] [place], [address] Carbon dioxide, total [Moles /volume] in Central venous bloodOrdered By: Karis Ceron on 12-15-2024 CO2 [Moles/Vol] 20.6 mmol/L Low 21.0-32.0 [facility] Chloride assayOrdered By: Ra jose Ceron on 12-15-2024 Chloride [Moles/Vol] 105 mmol/L 98-108 [facility] Comprehensive Metabolic Prof ilon 12-15-2024 Albumin [Mass/Vol] 4.2 g/dL Normal 3.4-4.8 [facility] Comment on above: Performed By: #### L 501.9520, L500.4050, L503.0106, L506.0400, L100.0100, L506.0200, L501.9985 #### [facility] [address] [place], [address] Albumin/Globulin [Mass ratio] 1.5 {ratio} Normal 0.9-2.4 [facility] Comment on above: Performed By: #### L 501.9520, L500.4050, L503.0106, L506.0400, L100.0100, L506.0200, L501.9985 #### [facility] [address] [place], [address] ALK PHOS 76 U/L Normal 35-104 [facility] Comment on above: Performed By: #### L 501.9520, L500.4050, L503.0106, L506.0400, L100.0100, L506.0200, L501.9985 #### [facility] [address] [place], [address] ALT [Catalytic activity/Vol] 27 U/L Normal <=34 [facility] Comment on above: Performed By: #### L 501.9520, L500.4050, L503.0106, L506.0400, L100.0100, L506.0200, L501.9985 #### [facility] [address] [place], [address] AST [Catalytic activity/Vol] 26 U/L Normal <=31 [facility] Comment on above: Performed By: #### L 501.9520, L500.4050, L503.0106, L506.0400, L100.0100, L506.0200, L501.9985 #### [facility] [address] [place], [address] Bilirubin [Mass/Vol] 0.75 mg/dL Normal 0.00-1.30 [facility] Comment on above: Performed By: #### L 501.9520, L500.4050, L503.0106, L506.0400, L100.0100, L506.0200, L501.9985 #### [facility] [address] [place], [address] BUN/CRE 21.7 RATIO High 10-20 [facility] Comment on above: Performed By: #### L 501.9520, L500.4050, L503.0106, L506.0400, L100.0100, L506.0200, L501.9985 #### [facility] [address] [place], [address] Calcium [Mass/Vol] 9.4 mg/dL Normal 7.6-11.0 [facility] Comment on above: Performed By: #### L 501.9520, L500.4050, L503.0106, L506.0400, L100.0100, L506.0200, L501.9985 #### [facility] [address] [place], [address] Chloride [Moles/Vol] 105 mmol/L Normal 98-108 [facility] Comment on above: Performed By: #### L 501.9520, L500.4050, L503.0106, L506.0400, L100.0100, L506.0200, L501.9985 #### [facility] [address] [place], [address] CO2 [Moles/Vol] 20.6 mmol/L Low 21.0-32.0 [facility] Comment on above: Performed By: #### L 501.9520, L500.4050, L503.0106, L506.0400, L100.0100, L506.0200, L501.9985 #### [facility] [address] [place], [address] Creatinine [Mass/Vol] 0.88 mg/dL Normal 0.70-1.[address] [facility] Comment on above: Performed By: #### L 501.9520, L500.4050, L503.0106, L506.0400, L100.0100, L506.0200, L501.9985 #### [facility] [address] [place], [address] GAP 15 Normal 5-15 [facility] Comment on above: Performed By: #### L 501.9520, L500.4050, L503.0106, L506.0400, L100.0100, L506.0200, L501.9985 #### [facility] [address] [place], [address] GFR/1.73 sq M.predicted among non-blacks MDRD (S/P/Bld) [Vol rate/Area] 68 mL/min/{1.73_m2} Normal >60 [facility] Comment on above: Result Comment: mL/m in/1.73m2 CKD-EPI Creatinine Equation (2020) Performed By: #### L 501.9520, L500.4050, L503.0106, L506.0400, L100.0100, L506.0200, L501.9985 #### [facility] [address] [place], [address] Globulin (S) [Mass/Vol] 2.8 g/dL Normal 2.2-4.2 [facility] Comment on above: Performed By: #### L 501.9520, L500.4050, L503.0106, L506.0400, L100.0100, L506.0200, L501.9985 #### [facility] [address] [place], [address] Glucose [Mass/Vol] 131 mg/dL High 70-99 [facility] Comment on above: Performed By: #### L 501.9520, L500.4050, L503.0106, L506.0400, L100.0100, L506.0200, L501.9985 #### [facility] [address] [place], [address] Potassium [Moles/Vol] 4.5 mmol/L Normal 3.3-5.[address] [facility] Comment on above: Performed By: #### L 501.9520, L500.4050, L503.0106, L506.0400, L100.0100, L506.0200, L501.9985 #### [facility] [address] [place], [address] Sodium [Moles/Vol] 140 mmol/L Normal 133-145 [facility] Comment on above: Performed By: #### L 501.9520, L500.4050, L503.0106, L506.0400, L100.0100, L506.0200, L501.9985 #### [facility] [address] [place], [address] T PROT 7.0 g/dL Normal 5.9-8.4 [facility] Comment on above: Performed By: #### L 501.9520, L500.4050, L503.0106, L506.0400, L100.0100, L506.0200, L501.9985 #### [facility] [address] [place], [place], [id number] Urea nitrogen [Mass/Vol] 19 mg/dL Normal 4-19 [facility] Comment on above: Performed By: #### L 501.9520, L500.4050, L503.0106, L506.0400, L100.0100, L506.0200, L501.9985 #### [facility] [address] [place], [place], [id number] Eosinophil percentageOrdered By: Karis Ceron on 12-15-2024 Eosinophils/100 WBC (Bld) 2.0 % 0-5 [facility] Erythrocyte distribution wid th ratioOrdered By: Karismontez Ceron on 12-15-2024 Erythrocyte distribution width (RBC) [Ratio] 12.5 % 11.6-14.6 [facility] Erythrocyte distribution wid th standard deviationOrdered By: [facility]24 Erythrocyte distribution width (RBC) [Ratio] 43.7 fl 35.1-43.9 [facility] Folate [Moles/volume] in Ser um or PlasmaOrdered By: Karismontez Ceron on 12-15-2024 Folate [Moles/Vol] 16.50 ng/mL 4.60-34.80 [facility] Comment on above: Hemolysis, Results w ill be affected, Requires Recollection. Folates,Serum (Folic Acid)on 12-15-2024 FOLATES,SERUM 16.50 ng/mL Normal 4.60-34.80 [facility] Comment on above: Order Comment: N Result Comment: Hemo lysis, Results will be affected, Requires Recollection. Performed By: #### L 501.9520, L500.4050, L503.0106, L506.0400, L100.0100, L506.0200, L501.9985 #### [facility] [address] [place], [address] Glomerular filtration rate ( GFR) estimation/1.73 sq m using serum, plasma, or whole bOrdered By: Karis Ceron on 12-15-2024 GFR/1.73 sq M.predicted among non-blacks MDRD (S/P/Bld) [Vol rate/Area] 68 mL/min/{1.73_m2} >60 [facility] Comment on above: mL/min/1.73m2 CKD-EP I Creatinine Equation (2020) Hematocrit Auto (Bld) [Volum e fraction]Ordered By: Karis Ceron on 12-15-2024 Hematocrit (Bld) [Volume fraction] 40.3 % 37-47 [facility] Hemoglobin measurementOrdere d By: Karis Ceron on 12-15-2024 Hemoglobin (Bld) [Mass/Vol] 13.4 g/dL 12.0-15.0 [facility] Immature granulocytes/100 WB C Auto (Bld)Ordered By: Karis Ceron on 12-15-2024 Immature granulocytes/100 WBC (Bld) 0.200 % 0.0-0.9 [facility] Comment on above: IG% - Immature Granu locytes (promyelocytes, myelocytes and metamyelocytes) > 1% indicates that a LEFT SHIFT is Present. Laboratory - Chemistry and C hemistry - challengeOrdered By: Karis Ceron on 12-15-2024 AST [Catalytic activity/Vol] 26 U/L <32 [facility] MCV (mean corpuscular volume ) determinationOrdered By: Karis Ceron on 12-15-2024 MCV (RBC) [Entitic vol] 95.0 fL 81-99 [facility] Mean corpuscular hemoglobin (MCH) determinationOrdered By: Karis Ceron on 12-15-2024 MCH (RBC) [Entitic mass] 31.6 pg 27.0-32.0 [facility] Mean corpuscular hemoglobin concentration (MCHC) determinationOrdered By: Karis Ceron on 12-15-2024 MCHC (RBC) [Mass/Vol] 33.3 g/dL 32-[address] [facility] Mean platelet volume determi nationOrdered By: Karis Ceron on 12-15-2024 Platelet mean volume (Bld) [Entitic vol] 10.5 fL 6.2-12.0 [facility] Monocyte percentageOrdered B y: Karis Ceron on 12-15-2024 Monocytes/100 WBC (Bld) 5.2 % 0-10 [facility] Neutrophil percentageOrdered By: Karis Ceron on 12-15-2024 Neutrophils/100 WBC (Bld) 56.9 % 47-70 [facility] Nucleated red blood cell per centageOrdered By: Karis Ceron on 12-15-2024 Nucleated RBC/100 WBC (Bld) [Ratio] 0 % 0-5 [facility] Platelet countOrdered By: Ra jose Ceron on 12-15-2024 Platelets (Bld) [#/Vol] 241 10*3/uL 150-450 [facility] Potassium measurement (mass/ volume)Ordered By: Karis Ceron on 12-15-2024 Potassium (Unsp spec) [Mass/Vol] 4.5 mmol/L 3.3-5.1 [facility] RBC Auto (Bld) [#/Vol]Ordere d By: Karis Ceron on 12-15-2024 RBC (Bld) [#/Vol] 4.24 10*6/uL 4.2-5.4 [facility] Serum creatinine measurement (mass/volume)Ordered By: Karis Ceron on 12-15-2024 Creatinine [Mass/Vol] 0.88 mg/dL 0.70-1.[address] [facility] Serum globulin measurementOr dered By: Karis Ceron on 12-15-2024 Globulin (S) [Mass/Vol] 2.8 g/dL 2.2-4.2 [facility] Serum glucose measurement (m ass/volume)Ordered By: Karis Ceron on 12-15-2024 Glucose [Mass/Vol] 131 mg/dL High 70-99 [facility] Serum or plasma alanine christensen otransferase (ALT) measurementOrdered By: Karis Ceron on 12-15-2024 ALT [Catalytic activity/Vol] 27 U/L <35 [facility] Serum or plasma albumin svitlana urement (mass/volume)Ordered By: Karis Ceron on 12-15-2024 Albumin [Mass/Vol] 4.2 g/dL 3.4-4.8 [facility] Serum or plasma albumin/glob ulin mass ratioOrdered By: Karis Ceron on 12-15-2024 Albumin/Globulin [Mass ratio] 1.5 {ratio} 0.9-2.4 [facility] Serum or plasma alkaline marycarmen sphatase measurementOrdered By: Karis Ceron on 12-15-2024 ALP [Catalytic activity/Vol] 76 U/L 35-104 [facility] Serum or plasma calcium svitlana urement (mass/volume)Ordered By: Karis Ceron on 12-15-2024 Calcium [Mass/Vol] 9.4 mg/dL 7.6-11.0 [facility] Serum or plasma urea nitroge n measurement (mass/volume)Ordered By: Karis Ceron on 12-15-2024 Urea nitrogen [Mass/Vol] 19 mg/dL 4-19 [facility] Sodium levelOrdered By: Claudia Ceron on 12-15-2024 Sodium [Moles/Vol] 140 mmol/L 133-145 [facility] T4 Free Directon 12-15-2024 T4 FREE DIRECT 1.10 ng/dL Normal 0.76-1.46 [facility] Comment on above: Order Comment: N Performed By: #### L 501.9520, L500.4050, L503.0106, L506.0400, L100.0100, L506.0200, L501.9985 ####[facility] [id number] [place], [place], [id number] T4 freeOrdered By: Karis pires on 12-15-2024 Free T4 [Mass/Vol] 1.10 ng/dL 0.76-1.46 [facility] TSH DL <= 0.005 mIU/L QnOrde red By: Karis Ceron on 12-15-2024 TSH Qn 1.180 uIU/mL 0.300-4.200 [facility] Thyroid Stim Hormone (TSH)on 12-15-2024 TSH 1.180 uIU/mL Normal 0.300-4.200 [facility] Comment on above: Performed By: #### L 501.9520, L500.4050, L503.0106, L506.0400, L100.0100, L506.0200, L501.9985 ####[facility] [id number] [place], [place], [address] Total proteinOrdered By: Jory Ceron on 12-15-2024 Protein [Mass/Vol] 7.0 g/dL 5.9-8.4 [facility] Vitamin B12on 12-15-2024 Cobalamin (Vitamin B12) [Mass/Vol] 524 pg/mL Normal 180-914 [facility] Comment on above: Performed By: #### L 501.9520, L500.4050, L503.0106, L506.0400, L100.0100, L506.0200, L501.9985 ####[facility] [id number] [place], [place], [id number] Vitamin B12 ser/plasOrdered By: Karis Ceron on 12-15-2024 Cobalamin (Vitamin B12) [Mass/Vol] 524 pg/mL 180-914 [facility] White blood cell (WBC) count Ordered By: Karis Ceron on 12-15-2024 WBC (Bld) [#/Vol] 6.5 10*3/uL 4.4-11.0 [facility] [facility]on Neurology Visit Report [facility] [address], [address] [place], [place] [address] OFFICE VISIT Date of Service: 12/10/24 MR#: [id number] Acct: [id number] Name: ANGEL BARBOZA Rep #: [id number] : 1950 Provider: Dr. Brandon gaona MD Age/Sex: 74/F Location: [facility] Status: Signed [facility] Chief Complaint: Establish Care Details: The patient is a 74-year-old left handed female who [facility]. She was referred 08/31/2024 by IVORY Ceron with [facility] for memory issues. This patient presents [...] some co (more content not included)... 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 She reports [...] No difficulty (more content not included)... Normal [facility] Cardiology Visit Reporton Cardiology Visit Report [facility] [address] [place] [address] OFFICE VISIT Date of Service: 10/29/24 MR#: [id number] Acct: [id number] Name: ANGEL BARBOZA Rep #: [id number] : 1950 Provider: Dr. 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 Normal [facility] Urgent Care Visit Reporton 0 08-04-2024 Urgent Care Visit Report [facility] [address], [address] [place] [address] OFFICE VISIT Date of Service: 08/04/24 MR#: [id number] Acct: [id number] Name: ANGEL BARBOZA Rep #: [id number] : 1950 Provider: MARRY Estevez Age/Sex: 73/F Location: [facility] [place] [place] Status: Signed Intake Vital Signs 03/12/24 13:15 [...] Intake Visit Reasons: Cough Chief Complaint: cough Settlement Clerk Required: No Is patient in pain?: No [...] with sputum x1 week. Declined viral testing. 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 No jxkx-qhr-opnmqyc products tried to assist, though admitting purchasing zhiq-mhl-ikmkhnv cough syrup (unknown name) yesterday which she [...] related s (more content not included)... Normal [facility] BD BONE DENSITY DEXA AXIAL S KATJAKORINledy [...] Date: 06/29/2024 1:54:43 PM Ordering Provider: PK Domniguez [facility] MAMMOGRAM SCREENING BILAT ERAL W/TOMOon 04-07-2024 [place] MAMMOGRAM SCREENING BILATERAL W/BRY ORIGINAL FROM: [place] [address] PROCEDURE FOR: ANGEL BARBOZA [address] [place] [id number] Home: PID#: [id number] Exam#: [id number] : 1950 Age: 73 TO: PK SEBASTIAN DO [address] [place] [address] Fax: NO FAX EXAMINATION: SCREENING DIGITAL BILATERAL [...] addition to annual mammographic screening per the [employer] [place]. BIRADS: MAMMOGRAM BI-RADS: 2: Benign finding RECALL: 1 year screening RECALL TYPE: mammo LETTER SENT: Normal BI-RADS 1 and 2 Interpreted by: Melida Castro Preliminary Report By: Melida Castro Electronically signed By Melida Castro Dictated Date: 04/07/2024 1:15:52 PM Prelim Date: 04/07/2024 1:18:32 PM Sign Date: 04/07/2024 1:18:32 PM Ordering Provider: PK SEBASTIAN Customer Marketing Manager: RASHIDA COOMBS RT(R)(M)(CT) letter sent: Normal BI-RADS 1 and 2 Mammogram BI-RADS: 2 Benign Normal [facility] Echo Completeon 04-02-2024 Echo Complete [facility] Cardiovascular Services [address] [place] [address] [place] [address] Echo Complete 04/02/24 1340 MR#: [id number] Acct: [id number] Name: ANGEL BARBOZA Rep #: [id number] : 1950 73 From: Salo Vasquez MD [...] Dictated: 04/02/24 1340 Date Transcribed: 04/06/24 1034 Airport Clerk: Signed Normal [facility] Cardiology Visit Reporton Cardiology Visit Report [facility] [address] [place] [address] OFFICE VISIT Date of Service: 03/12/24 MR#: [id number] Acct: [id number] Name: ANGEL BARBOZA #: [id number] : 1950 Provider: MARRY Sullivan Age/Sex: 73/F Location: [facility] [place] [place] Status: Signed [facility] History of Present Illness Details: ANGEL [...] 98 Intake Visit Reasons: 6 M FU Settlement Clerk Required: No Is patient in pain?: No [...] No PFSH Medical History Atherosclerotic heart disease [place] coronary artery w/angina pectoris Essential (primary) hypertension [...] or heartburn (more content not included)... Normal [facility] Carotid Duplex Ultrasoundon 01-21-2024 Carotid Duplex Ultrasound [facility] Cardiovascular Services [address] [place] [address] Carotid Duplex Ultrasound 01/21/24 0955 MR#: [id number] Acct: [id number] Name: ANGEL BARBOZA Rep #: [id number] : 1950 73 From: Ted Almodovar MD [...] the left vertebral artery. Procedure Carotid Duplex 76629. This is a Carotid Duplex examination using [...] Slade Date Dictated: 01/21/24954 Date Transcribed: 01/21/241621 Airport Clerk: Signed Normal [facility] .GFRon 09-13-2023 GFR Non- 57 ml/min/1.73sqm Normal [facility] ([place]) Comment on above: Result Comment: GFR Population [...] By: #### C MP, LIPID, GFR #### [address] [address] GFR 69 ml/min/1.73sqm Normal [facility] ([place]) Comment on above: Result Comment: GFR Population [...] #### C MP, LIPID, GFR #### Carli [address] [address] CMPon 09-13-2023 Albumin Level 3.5 G/dL Normal 3.4-4.8 [facility] ([place]) Comment on above: Performed By: #### C MP, LIPID, GFR #### Carli [address] [address] Albumin/Globulin [Mass ratio] 1.2 {ratio} Normal 1.1-2.5 [facility] ([place]) Comment on above: Performed By: #### C MP, LIPID, GFR #### [address] [address] ALP [Catalytic activity/Vol] 80 U/L Normal 40-135 [facility] ([place]) Comment on above: Performed By: #### C MP, LIPID, GFR #### [address] [address] ALT [Catalytic activity/Vol] 36 U/L Normal 14-59 [facility] ([place]) Comment on above: Performed By: #### C MP, LIPID, GFR #### [address] [address] AST [Catalytic activity/Vol] 21 U/L Normal 10-40 [facility] ([place]) Comment on above: Performed By: #### C MP, LIPID, GFR #### [address] [address] Bili Total 0.7 mg/dL Normal 0.2-1.0 [facility] ([place]) Comment on above: Result Comment: Use of this assay is not recommended for patients undergoing treatment with eltrombopag due to the potential for falsely elevated results. Performed By: #### C MP, LIPID, GFR #### [address] [address] BUN/Creatinine Ratio 15 ratio Normal 7-27 [facility] ([place]) Comment on above: Performed By: #### C MP, LIPID, GFR #### [address] [address] Calcium [Mass/Vol] 8.9 mg/dL Normal 8.4-10.2 [facility] ([place]) Comment on above: Performed By: #### C MP, LIPID, GFR #### [address] [address] Chloride [Moles/Vol] 108 mmol/L High 98-107 [facility] ([place]) Comment on above: Performed By: #### C MP, LIPID, GFR #### [address] [address] CO2 [Moles/Vol] 29 mmol/L Normal 23-31 [facility] ([place]) Comment on above: Performed By: #### C MP, LIPID, GFR #### [address] [address] Creatinine [Mass/Vol] 0.96 mg/dL Normal 0.55-1.02 [facility] ([place]) Comment on above: Performed By: #### C MP, LIPID, GFR #### [address] [address] Electrolyte Balance 7.0 mEq/L Normal 4.0-15.0 [facility] ([place]) Comment on above: Performed By: #### C MP, LIPID, GFR #### [address] [address] Globulin 2.8 G/dL Normal [facility] ([place] Comment on above: Performed By: #### C MP, LIPID, GFR #### [address] [address] Glucose [Mass/Vol] 105 mg/dL Normal 83-110 [facility] ([place]) Comment on above: Performed By: #### C MP, LIPID, GFR #### [address] [address] Potassium [Moles/Vol] 4.8 mmol/L Normal 3.5-5.1 [facility] ([place]) Comment on above: Performed By: #### C MP, LIPID, GFR #### [address] [address] Sodium [Moles/Vol] 144 mmol/L Normal 136-145 [facility] ([place]) Comment on above: Performed By: #### C MP, LIPID, GFR #### [address] [address] Total Protein 6.3 G/dL Low 6.4-8.2 [facility] ([place]) Comment on above: Performed By: #### C MP, LIPID, GFR #### [address] [address] Urea nitrogen [Mass/Vol] 14 mg/dL Normal 7-18 [facility] ([place]) Comment on above: Performed By: #### C MP, LIPID, GFR #### [address] [address] LABORATORYOrdered By: SYSTEM SYSTEM on 09-13-2023 Albumin [...] 09-13-2023 Cholesterol [Mass/Vol] 160 mg/dL Normal 0-200 [facility] ([place]) Comment on above: Result Comment: Chol esterol Reference Interval: Less than 200 Desirable 200-239 Borderline high risk 240 and above High risk Performed By: #### C MP, LIPID, GFR #### [address] [address] Cholesterol in HDL [Mass/Vol] 65 mg/dL High 40-60 [facility] ([place] Comment on above: Performed By: #### C MP, LIPID, GFR #### [address] [address] Cholesterol in LDL [Mass/Vol] 84 mg/dL Normal 0-130 [facility] ([place] Comment on above: Performed By: #### C MP, LIPID, GFR #### [address] [address] Triglyceride [Mass/Vol] 57 mg/dL Normal 0-150 [facility] ([place]) Comment on above: Result Comment: Trig lyceride Reference Interval: Less than 150 Normal 150-199 Borderline high risk 200-499 High risk 500 or higher Very high risk Performed By: #### C MP, LIPID, GFR #### [address] [address] DBT Breast - bilateral elye homero 02-19-2023 [...] Electronically Signed Date/Time: 02/19/2023 1:04 PM EDT [facility] Patient Name: ANGEL BARBOZA : 1950 Exam Date/Time: 02/07/2023 10:50 Procedure: BI MAMMOGRAM SCREENING TOMOSYNTHESIS BILATERAL Ordering Provider: SEBASTIAN BRETT Reason For Exam: z12.31 Image views: 2D Bilateral CC and MLO views were acquired. 3D Bilateral CC and MLO views were acquired. Images were reviewed with CAD. Markings on images: BB's = Nipples; skin lesions Open barrow = Palpable Line = Scar COMPARISON: 2020; 2014 TISSUE DENSITY: BIRADS B - There are scattered fibroglandular densities. FINDINGS: There are post surgical changes in both breasts. No suspicious masses, architectural distortions or suspiciously clustered microcalcifications are identified. There are no significant changes when compared with prior studies. [facility] Pepe Darby MD - 02/19/2023 Patient Name: ANGEL BARBOZA : 1950 Exam Date/Time: 02/07/2023 10:50 Procedure: BI MAMMOGRAM SCREENING TOMOSYNTHESIS BILATERAL Ordering Provider: SEBASTIAN BRETT Reason For Exam: z12.31 Image views: 2D Bilateral CC and MLO views were acquired. 3D Bilateral CC and MLO views were acquired. Images were reviewed with CAD. Markings on images: BB's = Nipples; skin lesions Open barrow = Palpable Line = Scar COMPARISON: 2020; [...] Date/Time: 02/19/2023 1:04 PM EDT [facility] DBT Breast - bilateral scree Tanirdered By: Pepe Darby on 02-19-2023 [facility] Work Phone: DBT Breast - bilateral scree ningon 02-07-2023 Radiology Study observation (narrative) [facility] 12-12-2022 Bili Indirect 0.5 mg/dL Normal [facility] ([place]) Comment on above: Performed By: #### H FP, LIPID #### Carli [address] [address] Albumin Level 3.6 G/dL Normal 3.4-4.8 [facility] ([place]) Comment on above: Performed By: #### H FP, LIPID #### Carli [address] [address] Albumin/Globulin [Mass ratio] 1.2 {ratio} Normal 1.1-2.5 [facility] ([place]) Comment on above: Performed By: #### H FP, LIPID #### [address] [address] ALP [Catalytic activity/Vol] 98 U/L Normal 40-135 [facility] ([place]) Comment on above: Performed By: #### H FP, LIPID #### [address] [address] ALT [Catalytic activity/Vol] 22 U/L Normal 14-59 [facility] ([place]) Comment on above: Performed By: #### H FP, LIPID #### [address] [address] AST [Catalytic activity/Vol] 18 U/L Normal 10-40 [facility] ([place]) Comment on above: Performed By: #### H FP, LIPID #### [address] [address] Bili Direct 0.2 mg/dL Normal 0.0-0.2 [facility] ([place]) Comment on above: Result Comment: Use of this assay is not recommended for patients undergoing treatment with eltrombopag due to the potential for falsely elevated results. Performed By: #### H FP, LIPID #### [address] [address] Bili Total 0.7 mg/dL Normal 0.2-1.0 [facility] ([place]) Comment on above: Result Comment: Use of this assay is not recommended for patients undergoing treatment with eltrombopag due to the potential for falsely elevated results. Performed By: #### H FP, LIPID #### [address] [address] Globulin 3.1 G/dL Normal [facility] ([place]) Comment on above: Performed By: #### H FP, LIPID #### [address] [address] Total Protein 6.7 G/dL Normal 6.4-8.2 [facility] ([place]) Comment on above: Performed By: #### H FP, LIPID #### [address] [address] LABORATORYOrdered By: SYSTEM SYSTEM on 12-12-2022 Albumin [...] 12-12-2022 Cholesterol [Mass/Vol] 166 mg/dL Normal 0-200 [facility] ([place]) Comment on above: Result Comment: Chol esterol Reference Interval: Less than 200 Desirable 200-239 Borderline high risk 240 and above High risk Performed By: #### H FP, LIPID #### [address] [place], [place] [address] Cholesterol in HDL [Mass/Vol] 60 mg/dL Normal 40-60 [facility] ([place] Comment on above: Performed By: #### H FP, LIPID #### [address] [place], [place] [address] Cholesterol in LDL [Mass/Vol] 89 mg/dL Normal 0-130 [facility] ([place]) Comment on above: Performed By: #### H FP, LIPID #### [address] [place], [place] [address] Triglyceride [Mass/Vol] 83 mg/dL Normal 0-150 [facility] ([place]) Comment on above: Result Comment: Trig lyceride Reference Interval: Less than 150 Normal 150-199 Borderline high risk 200-499 High risk 500 or higher Very high risk Performed By: #### H FP, LIPID #### [id number] [place], [place] [address] LABORATORYOrdered By: Johanny Reddy on 05-31-2021 Albumin [...] cm Dr. Pk Sebastian DO Work Phone: [facility] 12-10-2024 13:41-0400 Body mass index (BMI) [Ratio] 21.9 kg/m2 Dr. Pk Sebastian DO Work Phone: [facility] 12-10-2024 13:41-0400 Body temperature 98.2 [degF] Dr. Pk Sebastian DO Work Phone: [facility] 12-10-2024 13:41-0400 Body weight 61.[address] Pk Sebastian DO Work Phone: [facility] 12-10-2024 13:41-0400 Diastolic blood pressure 60 mm[Hg] Dr. Pk Sebastian DO Work Phone: [facility] 12-10-2024 13:41-0400 Heart rate 60 /min Dr. Pk Sebastian DO Work Phone: [facility] 12-10-2024 13:41-0400 Respiratory rate 16 /min Dr. Pk Sebastian DO Work Phone: [facility] 12-10-2024 13:41-0400 SaO2% (BldA) [Mass fraction] 99 % Dr. Pk Sebastian DO Work Phone: [facility] 12-10-2024 13:41-0400 Systolic blood pressure 167 mm[Hg] Dr. Pk Sebastian DO Work Phone: [facility] 10-29-2024 12:51-0400 Body mass index (BMI) [Ratio] 22.1 kg/m2 Dr. Pk Sebastian DO Work Phone: [facility] 10-29-2024 12:51-0400 Body weight 62.[address] Pk Sebastian DO Work Phone: [facility] 10-29-2024 12:51-0400 Diastolic blood pressure 67 mm[Hg] Dr. Pk Sebastian DO Work Phone: [facility] 10-29-2024 12:51-0400 Heart rate 48 /min Dr. Pk Sebastian DO Work Phone: [facility] 10-29-2024 12:51-0400 Respiratory rate 16 /min Dr. Pk Sebastian DO Work Phone: [facility] 10-29-2024 12:51-0400 Systolic blood pressure 150 mm[Hg] Dr. Pk Sebastian DO Work Phone: [facility] 09-10-2023 13:39-0500 Body height 167.[address] Pk Sebastian Work Phone: [facility] 09-10-2023 13:39-0500 Body mass index (BMI) [Ratio] 23.1 kg/m2 Dr. Pk Sebastian Work Phone: [facility] 09-10-2023 13:39-0500 Body weight 64.[address] Pk Sebastian Work Phone: [facility] 09-10-2023 13:39-0500 Diastolic blood pressure 67 mm[Hg] Dr. Pk Sebastian Work Phone: [facility] 09-10-2023 13:39-0500 Heart rate 52 /min Dr. Pk Sebastian Work Phone: [facility] 09-10-2023 13:39-0500 Respiratory rate 18 /min Dr. Pk Sebastian Work Phone: [facility] 09-10-2023 13:39-0500 SaO2% (BldA) [Mass fraction] 99 % Dr. Pk Sebastian Work Phone: [facility] 09-10-2023 13:39-0500 Systolic blood pressure 121 mm[Hg] Dr. Pk Sebastian Work Phone: [facility] 02-07-2023 10:34-0400 Body height 167.6 cm kP Romulo DO Work Phone: [facility] 02-07-2023 10:34-0400 Body mass index (BMI) [Ratio] 23.4 kg/m2 Pk Romulo DO Work Phone: [facility] 02-07-2023 10:34-0400 Body weight 65.77 kg Pk Romulo DO Work Phone: [facility] 12-27-2022 14:05-0400 Body weight 65.[address] Pk Sebastian Work Phone: [facility] 12-27-2022 14:05-0400 Diastolic blood pressure 62 mm[Hg] Dr. Pk Sebastian Work Phone: [facility] 12-27-2022 14:05-0400 Heart rate 48 /min Dr. Pk Sebastian Work Phone: [facility] 12-27-2022 14:05-0400 Respiratory rate 14 /min Dr. Pk Sebastian Work Phone: [facility] 12-27-2022 14:05-0400 Systolic blood pressure 128 mm[Hg] Dr. Pk Sebastian Work Phone: [facility] 12-27-2022 08:53-0400 Body height 167.[address] Pk Sebastian Work Phone: [facility] 04-03-2022 13:45-0400 Body height 167.[address] Pk Sebastian Work Phone: [facility] Work Phone: 04-03-2022 13:45-0400 Body mass index (BMI) [Ratio] 23.6 kg/m2 Dr. Pk Sebastian Work Phone: [facility] Work Phone: 04-03-2022 13:45-0400 Body weight 66.[address] Pk Sebastian Work Phone: [facility] Work Phone: 04-03-2022 13:45-0400 Diastolic blood pressure 56 mm[Hg] Dr. Pk Sebastian Work Phone: [facility] Work Phone: 04-03-2022 13:45-0400 Heart rate 46 /min Dr. Pk Sebastian Work Phone: [facility] Work Phone: 04-03-2022 13:45-0400 Respiratory rate 16 /min Dr. Pk Sebastian Work Phone: [facility] Work Phone: 04-03-2022 13:45-0400 Systolic blood pressure 142 mm[Hg] Dr. Pk Sebastian Work Phone: [facility] Work Phone: Encounters Encounter Date Encounter Type Care Provider Facility Start: 01-12-2025 ambulatory [facility] Facility:[facility] Start: 12-15-2024 End: 12-15-[address] Pk Sebastian DO Work Phone: [facility] Work Phone: Start: 12-15-2024 End: 12-15-2024 Patient encounter procedure Karis Ceron CLERK TYPIST-C [facility] [place] [facility] Work Phone: Start: 12-15-2024 End: 12-15-2024 ambulatory Karis Franko Facility:[facility] Start: 12-10-2024 End: 12-10-[address] Brandon Oropeza MD -[facility] Work Phone: Start: 12-10-2024 End: 12-10-[address] Pk Sebastian DO Work Phone: [facility] [place] [place] [facility] Work Phone: Start: 11-03-2024 End: 11-03-2024 Patient encounter procedure Patricia TORREZ -[facility] Work Phone: Start: 11-03-2024 End: 11-03-2024 ambulatory Patricia Evans Facility:[facility] Start: 10-29-2024 End: 10-29-[address] Salo Vasquez MD -[facility] Work Phone: Start: 10-29-2024 End: 10-29-2024 ambulatory Pk Romulo Facility:[facility] Start: 08-04-2024 End: 08-04-2024 ambulatory Pk Romulo Facility:[facility] Start: 06-29-2024 End: 06-29-[address] PK SEBASTIAN DO [facility] Start: 06-29-2024 End: 06-29-[address] PK SEBASTIAN DO [facility] Start: 04-02-2024 ambulatory Pk Romulo Facility:[facility] Start: 04-02-2024 End: 04-02-[address] PK SEBASTIAN DO [facility] Start: 04-02-2024 End: 04-02-[address] PK SEBASTIAN DO [facility] Start: 04-02-2024 End: 04-02-2024 ambulatory Edison TUTTLE Facility:[facility] Start: 03-12-2024 End: 03-12-2024 ambulatory Pk Romulo Facility:[facility] Start: 01-21-2024 ambulatory Pk Romulo [facility] Start: 01-21-2024 End: 01-21-2024 ambulatory Pk Romulo Facility:[facility] Start: 11-04-2023 End: 11-04-[address] Pk Sebastian Work Phone: [facility] Work Phone: Start: 11-04-2023 End: 11-04-[address] Pk Sebastian Work Phone: [facility] Work Phone: Start: 09-13-2023 End: 09-14-[address] PK SEBASTIAN DO Facility:[facility] Start: 09-13-2023 End: 09-13-2023 Patient encounter procedure MS EDISON Deluca KALE [facility] Start: 09-10-2023 End: 09-10-[address] Pk Sebastian Work Phone: [facility] Work Phone: Start: 02-07-2023 End: 02-08-2023 ambulatory PKTERESA SEBASTIAN [facility] Start: 02-07-2023 End: 02-07-2023 Subsequent hospital visit by physician Pk Sebastian DO Work Phone: [facility] Comment on above: Encounter for screen ing mammogram for malignant neoplasm of breast Start: 01-28-2023 Transcribe Orders Pk Sebastian DO Work Phone: [facility] Central Scheduling Comment on above: Encounter for screen ing mammogram for malignant neoplasm of breast (Primary Dx) Start: 01-10-2023 Non-patient / Non-visit Dr. Pk Sebastian Work Phone: [facility] Start: 01-10-2023 Non-patient / Non-visit Dr. Pk Sebastian Work Phone: [facility] Start: 01-10-2023 End: 01-10-[address] Pk Sebastian Work Phone: [facility] Work Phone: Start: 01-10-2023 End: 01-10-[address] Pk Sebastian Work Phone: [facility]Cardiovascular Services Work Phone: Start: 12-27-2022 End: 12-27-[address] Pk Sebastian Work Phone: [facility] Work Phone: Start: 12-12-2022 End: 12-13-[address] PK SEBASTIAN DO Facility:[facility] Start: 12-12-2022 End: 12-12-2022 Patient encounter procedure MS EDISON Deluca [facility] Start: 06-14-2022 End: 06-14-[address] Pk Sebastian Work Phone: [facility] Work Phone: Start: 06-14-2022 End: 06-14-[address] Pk Sebastian Work Phone: [facility]-Pulmonary Services/Neurology Start: 05-25-2022 End: 05-25-[address] PK SEBASTIAN DO [facility] Start: 04-12-2022 End: 04-12-[address] Pk Sebastian Work Phone: [facility] Work Phone: Start: 04-12-2022 End: 04-12-[address] Pk Sebastian Work Phone: [facility]Occupational Therapy Start: 04-12-[address] Pk [facility] Start: 04-03-2022 End: 04-03-[address] Pk Sebastian Work Phone: 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 History of coronary artery bypass grafting Hx of CABG x3( Confirmed ) OTTONIEL AMARO CNP History of operative procedure on knee History of bilateral knee replacement( Confirmed ) OTTONIEL AMARO CNP Plan of Treatment Date Care Activity Detail Author Start: 02-08-2024 Screening for malign ant neoplasm of breast Mammogram [facility] Start: 09-24-2023 DTaP/Tdap/Td Vaccine s (2 - Td or Tdap) DTaP/Tdap/Td Vaccines (2 - Td or Tdap) [facility] Start: 03-15-2023 Influenza vaccination Influenza Vacc ine (#1) [facility] Start: 01-28-2022 COVID-19 Vaccine (5 - Booster for Moderna series) COVID-19 Vaccine (5 - Booster for Moderna series) [facility] Start: 01-28-2022 COVID-19 Vaccine (5 - Moderna series) COVID-19 Vaccine (5 - Moderna series) [facility] Start: 11-18-2013 Zoster Vaccines (2 of 3) Zoste r Vaccines (2 of 3) [facility] Start: 1988 Screening for malign ant neoplasm of breast Mammogram [facility] Start: 1966 Hepatitis C screening Hepatitis C Sc reening [facility] Start: 1960 Depression Screening Depression Scre ening [facility] Start: 1948 Lipid panel Lipid Panel [facility] Start: 1948 Medicare Advantage Annual Wellness Visit (AWV) Medicare Advantage Annual Wellness Visit (AWV) [facility] Start: 1948 Screening for malign ant neoplasm of colon [facility] Start: 1948 Screening for osteoporosis Bone Density Scan [facility] End: 02-07-2023 DBT Breast - bilateral screening [facility] Work Phone: Comment on above: Once for 1 Occurrenc es starting 02/07/2023 until 02/07/2023 Lipid 1996 panel - S pascual or Plasma [facility] Work Phone: Lipid 1996 panel - S pascual or Plasma [facility] US Carotid arteries [facility] Immunizations Immunization Date Immunization Notes Care Provider Karley mitchell 07-01-2022 influenza virus vacc ine, unspecified formulation Pk Sebastian DO Work Phone: [facility] 12-03-2021 SARS-CoV-2 (COVID-19 ) mRNA-[address] ARMINDA BROOKS DO [facility] 05-30-2021 SARS-CoV-2 (COVID-19 ) mRNA-[address] ARMINDA BROOKS DO [facility] 10-13-2020 COVID-19, mRNA, LNP- S, PF, 100 mcg/ 0.5 mL dose; Translations: [Moderna COVID-19 Vaccine] OTTONIEL AMARO MOTOR INSTALLER [facility] 09-15-2020 COVID-19, mRNA, LNP- S, PF, 100 mcg/ 0.5 mL dose; Translations: [Moderna COVID-19 Vaccine] OTTONIEL AMARO MOTOR INSTALLER [facility] 08-04-2020 influenza virus vacc ine, unspecified formulation OTTONIEL AMARO MOTOR INSTALLER [facility] 08-04-2020 pneumococcal conjuga te vaccine, 13 valent OTTONIEL AMARO MOTOR INSTALLER [facility] 05-23-2018 influenza virus vacc ine, unspecified formulation OTTONIEL AMARO MOTOR INSTALLER [facility] 11-25-2013 pneumococcal polysaccharide vaccine, 23 valent OTTONIEL AMARO MOTOR INSTALLER [facility] 09-23-2013 tetanus toxoid, redu tonya diphtheria toxoid, and acellular pertussis vaccine, adsorbed OTTONIEL AMARO MOTOR INSTALLER [facility] 09-23-2013 zoster vaccine, live OTTONIEL GREWAL MOTOR INSTALLER [facility] Payers Date Payer Category Payer Self-pay [id number] 2022 Medicare [employer] MED[employer] RE [employer] SECURE [id number] 2022-Present [address] [place] [address] Medicare HMO [id number] 2022 Unknown [id number] 2013 Medicare MEDICARE PART A B [id number] 1948 Unknown [id number] .2.627 1948 Unknown [id number] 2.16.840.1.526781.3.579 .2.627 1948 Unknown [id number] 2.16.840.1.194025.3.579 .2.627 1948 Unknown [id number] [id number] .2.627 Medicare [facility] MEDICARE [id number] Medicare O MEDICARE [id number] Private Health Insurance [employer] SR SUPPLEM ENT INS [id number] Unknown [id number] [id number] .2.462 Unknown [id number] 2.16.840.1.538676.3.579 .2.462 Unknown [id number] 2.16.840.1.830757.3.579 .2.462 Unknown [id number] 2.16.840.1.927112.3.579 .2.462 Unknown [id number] 2.16.840.1.598466.3.579 .2.462 Unknown [id number] 2.16.840.1.337529.3.579 .2.462 Unknown [id number] 2.16.840.1.984810.3.579 .2.462 Unknown [id number] 2.16.840.1.970648.3.579 .2.462 Unknown [id number] 2.16.840.1.153808.3.579 .2.462 Unknown [id number] 2.16.840.1.509922.3.579 .2.462 Unknown [id number] [id number] .2.462 Social History Date Type Detail Facility Start: 03-12-2019 End: 11-03-2024 Never smoked tobacco (finding) [facility] Comment on above: No Tobacco/Smoke Exp osure Start: 1950 Sex Assigned At Female [facility] Start: 04-03-2022 End: 09-10-2023 Tobacco smoking status NHIS Unknown if ever smoked [facility] Start: 07-28-2018 Non-smoker [facility] Start: 02-07-2023 Tobacco use and exposure Smokeless tobacco non-user [facility] Start: 1950 Sex Assigned At Not on file [facility] Start: 02-07-2023 Gender identity Not on file [facility] Start: 01-28-2023 End: 02-07-2023 Exposure to SARS-CoV-2 (event) Not sure [facility] Start: 02-07-2023 History of Social function [facility] Medical Equipment Procedure Code Equipment Code Equipment [...] lumbar paraspinals grossly. Special Tests: Slump: - [facility] Clinical Notes 05-31-2008 to 10-29-2024 Note Date [...] tag, hemorrhoidal acute November 03, 2024 8:12am [facility] Work Phone: [phone]) 116-515904-17-2025 Evaluation note* Diagnosis Onset Date Resolution Status [...] change suspected December 10, 2 025 1:42pm [facility] Work Phone: [phone]) 258-502512-16-2024 Note ORIGINAL EXAMINATION: BONE DENSITOMETRY 06/29/2024 1:39 [...] Sign Date: 06/29/2024 1:54:43 PM Ordering Provider: [facility]04-22-2024 Discharge summary Author Ted Ackerman [facility] November 04, 2023 10:50am Note Date/Time November 04, 2023 10: 50am [facility] Physical Therapy [facility] [address] [place] [address]. [address] [place] [address] / REHABILITATION SERVICES DISCHARGE SUMMARY MR#: [id number] Acct: [id number] Name: ANGEL BARBOZA You Rep #: [id number] : 1950 73 From: Ted Ackerman DPT, [...] please feel free to call me at [phone]. Thank you for the referral of thispatient. Sincerely, Ted Ackerman, CHRIS, OCS, CSCS Balance/Gait/Functional tests Balance/Special Test Scores Quick DASH Score: 6.8175 Improvement % Improvement: 80 <Electronically signed by Ted Ackerman DPT, KELLEY, CSCS> 11/04/23 1050 CC: Dr. Pk Sebastian DO; Dr. Arminda Brooks DO ~ EBG Signed [facility] Work Phone: 1(884) 735-660211-17-2008 Evaluation note* Diagnosis Onset Date Resolution Status Cardiac murmur acute Essential (primary) hypertension chronic Hyperlipidemia chronic H/O coronary artery bypass surgery May 31, 2008 resolved [facility] Work Phone: 1(852) 607-269011-17-2008 Evaluation note* Diagnosis Onset Date Resolution Status Carotid bruit present acute Essential (primary) hypertension chronic Hyperlipidemia chronic H/O coronary artery bypass surgery May 31, 2008 resolved [facility] Work Phone: Evaluation + Plan note No data available for this section [facility] Evaluation + Plan note Future Appointments Appointment Date:05/30/2022 01:20:00 PM Scheduled Provider:PK SEBASTIAN DO Location:[facility] Appointment Type:[facility] Evaluation + Plan note Future Appointments Appointment Date:06/19/2024 08:50:00 AM Scheduled Provider:PK SEBASTIAN DO Location:[facility] Appointment Type:[facility] Wellness Medicare Future Scheduled Tests Radiology* MA Mammo Screening Bilateral w/ Bry 04/02/24 [facility] Evaluation + Plan note Future Appointments Appointment Date:06/21/2025 09:20:00 AM Scheduled Provider:PK SEBASTIAN DO Location:[facility] Appointment Type:[facility] Wellness Medicare Future Scheduled Tests Laboratory* Lipid Profile 06/19/24 * Complete Metabolic Panel 06/19/24 Radiology* MA Mammo Screening Bilateral w/ Bry 04/02/24 [facility] Evaluation note* Diagnosis Encounter for screening mammogram for malignant neoplasm of breast [facility] Diagnosis Encounter for screening mammogram for malignant neoplasm of breast- Primary Encounter for screening mammogram for malignant neoplasm of breast [facility] No data available for this section [facility] Progress note No data available for this section [facility] Reason for referral (narrative)No reason for referral [facility] Work Phone: Chief Complaint and [...] Will Yes July 28 10:06am Power of Business Job Titles Yes July 28, 2018 10:06am Advance Directive Response Recorded Date/ Time Advance Directives Yes July 28, 2018 11:06am Living Will Yes July 28 11:06am Power of Business Job Titles Yes July 28, 2018 11:06am Advance Directive Response Recorded Date/ Time Living Will Yes July 28 11:06am Do you have a Healthcare Power of Business Job Titles? Yes July 28, 2018 11:06am Advance Directives Yes July 28, 2018 11:06am Summary Purpose Additional Source Comments Care Team (unrecognized sect ion and content) Care Team Personnel Name: PK SEBASTIAN DO Position: P4 Physician - Primary Care Med Service: Active Provider Member Role: Primary Care Physician Address: Address: [address] [place] [address] Care Team Related Persons Name: FABRICIO GIRARD Care Team Personnel Name: PK SEBASTIAN DO Position: P4 Physician - Primary Care Member Role: Primary Care Physician Address: Address: [address] [place] [address] Care Team Related Persons Name: FABRICIO GIRARD [...] MD Attending Provider, Referring Pro vider Active [employer] Relationship Specialty Start Date End Date Pk Sebastian DO [address] [id number] PCP - General Family Medicine 01/28/23 [employer] Relationship Specialty Start Date End Date Pk Sebastian DO [address] [facility] [place] [address] PCP - General Family Medicine 01/28/23 Team Status: Inactive Member Role Status Dates Dr. Pk Sebastian DO Primary Care Provider, Referring Provider Active Edison Henley PA, PA Attending Provider Active Team Status: Inactive Member Role Status Dates Dr. Pk Sebastian DO Primary Care Provider Active Dr. Arminda Brooks DO Attending Provider, Referring Provider Active Team Status: Active Member Role Status Dates Karis Ceron CLERK TYPIST-C Primary Care Provider Active Team Status: Inactive Member Role Status Dates Dr. Pk Sebastian DO Referring Provider Active Start: October 29, 2024 End: October 29, 2024 Dr. Salo Vasquez MD Attending Provider Active S tart: October 29, 2024 End: October 29, 2024 Karis Ceron CLERK TYPIST-C Primary Care Provider Active Start: October 29, 2024 End: October 29, 2024 Team Status: Inactive Member Role Status Dates Karis Ceron CLERK TYPIST-C Primary Care Provider Active Start: November 03, [...] 2024 End: December 10, 2024 Karis Ceron CLERK TYPIST-C Primary Care Provider Active Start: December 10, 2024 End: December 10, 2024 Team Status: Inactive Member Role Status Dates Karis Ceron CLERK TYPIST-C Primary Care Provider Active Start: December 15, 2024 End: December 15, 2024 SHAN Zimmerman Attending Provider Active St art: December 15, 2024 End: December 15, 2024 SHAN Zimmerman Referring Provider Active St art: December 15, 2024 End: December 15, 2024 INFORMATION SOURCE (unrecogn ized section and content) DATE CREATED AUTHOR 02/20/2023 [facility] DATE CREATED AUTHOR AUTHOR'S ORGANIZ ATION 09/15/2023 [facility] ([place]) DATE CREATED AUTHOR AUTHOR'S ORGANIZ ATION 07/01/2024 [facility] DATE CREATED AUTHOR AUTHOR'S ORGANIZ ATION 01/09/2025 [facility] FOR RECORDS PERTAINING TO PATIENTS WHO ARE [...] BE BASED ON THE PRIMARY CLINICAL RECORDS. [facility]. provides no warranty or guarantee of the accuracy or completeness of information in this document.
== END | disposition home or self-care (01) ==
PROVIDERS: PCP Nurse Practitioner Family
DX: R47.01 Aphasia (principal); R41.3 Other amnesia; R41.844 Frontal lobe and executive function deficit
CPT/HCPCS: 70551

== ENCOUNTER → 2025-01-25 | Outpatient (CLI) | payer MEDICARE, SELFPAY ==
--- NOTE | 2025-01-25 09:00 | BI_ITS ---
EXAM: DIAG MAMM W/CAD, BILAT 01/25/2025 CLINICAL HISTORY: F, Age 74 y/o , NEW LUMP. Status post bilateral breast reduction. TECHNIQUE: DIAG MAMM W/CAD, BILAT. COMPARISON: Prior outside exam(s) dated April 02, 2024.. FINDINGS: TISSUE DENSITY: The breasts are heterogeneously dense, which may obscure small masses. Bilateral Breast Mammographic Findings: No significant masses, calcifications or other abnormalities are identified. Stable bilateral retroareolar calcified fibroadenomas. BI/DIAG MAMM W/CAD, BILAT IMPRESSION: Stable bilateral retroareolar calcified fibroadenomas. OVERALL FINAL ASSESSMENT BI-RADS 2: BENIGN RECOMMENDATION: Routine annual follow-up in 1 Year A letter with findings and recommendations will be mailed to the patient. Reading Location: [place] [address]
--- NOTE | 2025-01-25 09:00 | US_ITS ---
PROCEDURE: BREAST LIMITED UNILATERAL 01/25/2025 REASON FOR EXAM: F, Age 74 y/o , NEW LUMP Right breast lump COMPARISON: Prior mammogram done earlier in the day.. TECHNIQUE: BREAST LIMITED UNILATERAL FINDINGS: The retroareolar region of the right breast was examined with ultrasound. There is evidence of calcified fibroadenomas corresponding to the palpable lump. US/Breast Limited Unilateral IMPRESSION: The palpable lump corresponds to calcified fibroadenomas. BI-RADS 2: BENIGN RECOMMENDATION: Routine annual follow-up in 1 Year Reading Location: [place] [address]
== END | disposition home or self-care (01) ==
LOC: OPBI 08:54
PROVIDERS: PCP Nurse Practitioner Family; Referring Provider Nurse Practitioner Family; Visit Provider Nurse Practitioner Family
DX: N63.11 Unspecified lump in the right breast, upper outer quadrant (principal)
CPT/HCPCS: 76642; 77062; 77066; G0279

== ENCOUNTER 2025-07-06 09:00 | Outpatient (RCR) | payer MEDICARE, SELFPAY ==
--- NOTE | 2025-03-02 12:16 | HP.SP.EV_ITS ---
Visit History Visit Info Date of Eval: 02/19/25 Today is Visit #: 1 Patient's Approved Number of Visits: 10 Insurance Date Limit: 07/14/25 Maintenance Services Dispatcher: DAYANARA Doyle Attending Doctor: MASOUD Referring Doctor: MASOUD Reason for Referral: APHASIA, MEMORY. RX HERE Previous speech therapy: No Other Relevant Medical History/Diagnoses/Surgery: TALISHA BARBOZA is a 74 year old female who presents to speech therapy this date due to concerns for word finding and memory difficulties. She was referred by neurology. Talisha served as historian. She states these changes started about a year ago. Significant life events at that time include her passing away, she moved into a new house, and more recently she is also the POA for her sister who just went to a care facility. She reports she is experiencing paraphasias (e.g., stating umbrellas for eyebrows). She also experienced at least 10 word finding difficulties throughout the evaluation today. She fell in August 2024 onto the concrete and hit the left side of her head. She states there have been three other instances in the near and distant past where she has had the left side of her head hit (e.g., a horse head butted her, fell when she was a kid). She also has a significant history of exposure to anesthesia. She had a double knee replacement in 2006 (six months apart) and her hip was replaced in 2016. She also had bipass surgery in 2007 and in 2009 she had stents placed. Talisha also wears hearing aids. 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 Per neurology report: Over the past year or so patient has had increasing difficulties with memory. Patient has become concerned about a memory issue and so mentioned this problem to her daughter. Her daughter feels that the memory deficit is not as bad as patient's perception however there is difficulty with memory and performance of task. Patient has a tendency to forget simple tasks that she has arranged. She is forgetting names of people and places. She is forgetting to forget names of objects. The memory loss tends to be temporary and she is able to recover the recall fairly well. With regard to language this is a more recent issue. This was somewhat complicated in the view that the patient has had a longstanding habit of altering the syntax of her words as a manner of speech. Patient has had increasing difficulty in paying bills. She has some problems balancing her checkbook. This appears to be a new problem for her. Smoking Status: Never smoker Diagnosis Diagnosis: Mild Expressive Aphasia Pain Is pain an issue with your current prescribed condition?: No Personal Preferred language: Turkish Patient Allergies Allergies Allergies: Allergies amlodipine Adverse Reaction (Intermediate, Verified 02/11/25 08:24) Severe swelling, dull ache in chest, BP paradoxically high isosorbide Adverse Reaction (Verified 02/11/25 08:24) headaches morphine Adverse Reaction (Verified 02/11/25 08:24) Nausea BDAE-3 [place] Diagnostic Aphasia Examination BDAE-3 Administered: Yes BDAE-3: The BDAE-3 assesses communication in the areas of: conversational and expository speech, auditory comprehension, oral expression, reading and writing. Date: 02/19/25 Severity Level: 4 Level Detail: Some obvious loss of fluency in speech or facility of comprehension, without significant limitation of ideas expressed or form of expression. Rating Scale Profile of speech character Articulation Agility: 6 Detail: Facility at phoneme and syllable level ranges from 1 being unable to form speech sounds to 7 being never impaired Phrase length: 6 Detail: Longest occasional uninterrupted word runs Grammatical form: 6 Detail: Variety of grammatical constructions; use of grammatical mophemes: 1=nosyntactic word groupings ranging to 7 being normal range of syntax; normal facility with grammatical words Melodic Line (Prosody): 7 Detail: 1=word b word or aprosodic speech ranging to 7 being normal speech sandip Paraphasia in running speech: 6 Detail: 1 present in evrey utterance ranging to 7 s absent Word finding relative to fluency: 6 Detail: 1 is fluent but empty speech ranging to 7 as output primarily content words Summary Profile Recitation Recitation automatized sequences Percentile: 100 Summary Profile Repitition Repetition Percentile: 100 Words Percentile: 100 Sentences Percentile: 100 Summary Profile Naming Responsive Naming Percentile: 100 [place] Naming Test Percentile: 80 Special Categories Percentile: 100 Summary Profile Reading Matching cases and scripts: 100 Number matchin Picture - word matchin Oral word readin Oral sentence readin Oral sentence comprehension: 100 Sentences/Paragraph comprehension: 70 Summary Profile Writing Form: 100 Letter choice: 30 Motor faclility: 30 Primer words: 30 Regular phonics: 100 Common irregular words: 100 BDAE-3 Comments Assessment: -: Auditory Comprehension tasks were not administered during the assessment due to suspecting comprehension to be in tact. Pt may benefit from a follow-up with her after school caregiver to reassess the settings on her hearing aids. Suspect hearing deficit is affecting her ability to fully understand what is said to her. Pt even reporting that at times when she can't hear parts of a conversation she will nod and pretend like she did. ST educating that hearing affects our ability to not only participate in a conversation but also our ability to recall events (i.e., we can't remember something if we never heard it in the first place but faked it and pretended like we did). Talisha correctly identified 17/20 of the photographs from the [place] Naming Test. One of the items she erred with pronunciation of the target (e.g., unican for unicorn) but then self-corrected once she heard her production. The other two targets she benefited from phonemic cues to find the word. Talisha's overall writing skills appeared the most affected when it comes to motor facility. At times she would be hesitant on which letter would come next, start with the wrong letter, or difficulty with forming the letter. When she erred during the dictation tasks, suspect her hearing affected the two errors she made which lowered her overall percentile. She did appear to self correct when the letter formation or spelling of a target were errored, however when she misheard the dictated targets, she did not self correct these ones. The scores from this assessment minimally captured the symptoms that Talisha is reporting with regard to her expressive language skills. During conversation, Talisha presented with at least 10 word finding moments throughout the duration of the 60 min. assessment, which is significant. Discussed how being in stressful situations can also exacerbate word finding errors and recall. Talisha did confirm she was feeling nervous today. Discussed how word finding difficulties is a typical part of conversation, but since it is affecting her quality of life, it is appropriate to intervene and teach her relaxation st rategies for the more stressful environments as well as work on utilizing word finding strategies in conversation and more structured tasks. Additionally, based on neurology's report of Talisha having difficulty with paying bills, ST would like to further assess if this is an executive functioning difficulty or a language/writing/spelling difficutly. [facility] Administered: Yes First & Second Names - Delayed recall scaled score: 13 Belongings - Delayed recal scaled score: 7 Appointments - Delayed recall scaled score: 8 Picture recognition - Delayed recall scaled score: 11 Story - Immediate recall scaled score: 15 Story - Delayed recall scaled score: 9 Face recognition - Delayed recall scaled score: 9 Route - Immediate recall scaled score: 4 Route - Delayed recall scaled score: 9 Messages - Immediate recall scaled score: 11 Messages - Delayed recall scaled score: 7 Orientation and date scaled score: 5 [place] - Immediate recall scaled score: 10 [place] - Delayed recall scaled score: 9 Index Score Sum of scaled scores: 132 General Memory index: 90 Percentile rank: 25 Additional Information Comment:: Talisha's general memory index score (standard score) is 90 which is within one standard deviation (+/- 15) below the mean (100) of what other individuals her age are scoring. The subtests that were the most challenging for her included immediate recall of the route, delayed recall of her belongings, delayed recall of the messages task, and orientation. All of these subtests were at least one standard deviation (+/-3) below the mean scaled score (10). TASK ANALYSIS: - One of the items we chose to hide for the delayed belongings task was her phone. [place] through the assessment her phone started to ring after it was hidden in a cabinet. Pt asking if she could answer it, ST stating she could, but Talisha went to her purse to retrieve her phone vs. grabbing it from the cabinet. The phone was not retrieved nor was Talisha reminded of where the phone was originally placed. At the end of the assessment, her phone rang again, and Talisha directed ST to the cabinet she thought we put it in, however it was the wrong one. Suspect if Talisha was not reminded about her phone via it ringing, she would have forgotten about it unless prompted. - During the delayed recall of the messages task while recalling her route around the room, Pt carried the message and book with her throughout the route vs dropping them in their designated areas previously established by ST's route. 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 Overall, Pt did not appear to have difficulty with a specific area of memory (e.g., prospective memory). Pt would benefit from education and practice re: internal and external memory strategies to use at home as a preventative measure for her memory and allow for continued independence at home. Reference: Neuro-QoL instrument In past 7 days I had to read something several times to understand it: Sometimes (2-3 times) My thinking was slow: Sometimes (2-3 times) I had to work really hard to pay attention or i would make a mistake: Rarely (once) I had trouble concentrating: Rarely (once) How much DIFFICULTY do you currently reading & following complex instructions (e.g. directions for new medication: A little planning for & keeping appts that are not part of weekly routine: None managing your time to do most of your daily activities: A little learning new tasks or instructions: A little Neuro-QOL Score Raw Score: 31 T - Score: 46.0 Radiation Oncology Patient Plan Plan Plan: Will recommend Pt for weekly outpatient speech therapy intervention address mild-moderate expressive aphasia and mild cognitive deficits. Pt would benefit from circumlocution training, verb network training, and immediate feedback to remedy instances of paraphasia. Pt would also benefit from cognitive training to improve memory, executive functioning, and visuospatial skills. Without skilled intervention Pt is at risk for communicating basic, medical, emergent, social wants & needs, and interacting with family/friends at home, during social interactions, and in any volunteering roles she holds. Would also consider adding executive functioning goals related to iADL's such as balancing a checkbook if deemed appropriate given neurology's report of this being difficult for Talisha as of recent. Recommendations Treatment Warranted: Yes Treatment Warranted: Receptive/ Expressive Language and Cognition Progress Prognosis: Excellent Frequency Frequency: 1x/Week Duration: 3 Months Goals that are Established Determination:: Goals will be added/modified as deemed necessary and appropriate. Therapy will be discontinued when results of re-evaluation indicate therapy is no longer needed or lack of progress has been documented. Goal #1-5 Goal #1: Talisha will utilize aphasia word finding strategies in conversation and structured language tasks 80% of the time independently across 3 measured sessions. Goal #2: Talisha will show understanding of how to perform relaxation strategies to utilize in stressful situations with teachback of strategy on 3 separate opportunities. Goal #3: Talisha will complete basic to mod complex immediate, short-term, and working memory tasks with 90% acc independently across 3 measured opportunities. Goal #4: Talisha will modify environment at home via implementing internal and external memory compensatory strategies within 5 weeks' time of her initial evaluation. Education Patient has Indicated that the Following Identified Educational Needs: None The Patient has indicated that they have no educational or learning abilities that may effect their care.: Yes Patient Instruction Patient Education: Diagnosis, Treatment Plan and Goals Person Taught: Patient Teaching Method: Discussion and Demonstration Response to teaching: Return Demonstration and Verbalize Understanding
--- NOTE | 2025-04-21 15:02 | HP.SPREEV_ITS ---
Visit History Visit Info Date of Eval: 04/21/25 Today is Visit #: 1 Patient's Approved Number of Visits: 10 Insurance Date Limit: 07/14/25 Chain Tender: DAYANARA Doyle Attending Doctor: MASOUD Referring Doctor: MAOSUD Reason for Referral: APHASIA, MEMORY. RX HERE Previous speech therapy: No Other Relevant Medical History/Diagnoses/Surgery: TALISHA BARBOZA is a 74 year old female who presents to speech therapy this date due to concerns for word finding and memory difficulties. She was referred by neurology. Talisha served as historian. She states these changes started about a year ago. Significant life events at that time include her passing away, she moved into a new house, and more recently she is also the POA for her sister who just went to a care facility. She reports she is experiencing paraphasias (e.g., stating umbrellas for eyebrows). She also experienced at least 10 word finding difficulties throughout the evaluation today. She fell in August 2024 onto the concrete and hit the left side of her head. She states there have been three other instances in the near and distant past where she has had the left side of her head hit (e.g., a horse head butted her, fell when she was a kid). She also has a significant history of exposure to anesthesia. She had a double knee replacement in 2006 (six months apart) and her hip was replaced in 2016. She also had bipass surgery in 2007 and in 2009 she had stents placed. Talisha also wears hearing aids. 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 Per neurology report: Over the past year or so patient has had increasing difficulties with memory. Patient has become concerned about a memory issue and so mentioned this problem to her daughter. Her daughter feels that the memory deficit is not as bad as patient's perception however there is difficulty with memory and performance of task. Patient has a tendency to forget simple tasks that she has arranged. She is forgetting names of people and places. She is forgetting to forget names of objects. The memory loss tends to be temporary and she is able to recover the recall fairly well. With regard to language this is a more recent issue. This was somewhat complicated in the view that the patient has had a longstanding habit of altering the syntax of her words as a manner of speech. Patient has had increasing difficulty in paying bills. She has some problems balancing her checkbook. This appears to be a new problem for her. Smoking Status: Never smoker Diagnosis Diagnosis: Mild Expressive Aphasia Pain Is pain an issue with your current prescribed condition?: No Personal Preferred language: Syriac Patient Allergies Allergies Allergies: Allergies amlodipine Adverse Reaction (Intermediate, Verified 02/11/25 08:24) Severe swelling, dull ache in chest, BP paradoxically high isosorbide Adverse Reaction (Verified 02/11/25 08:24) headaches morphine Adverse Reaction (Verified 02/11/25 08:24) Nausea Previous/Current Goals Goals 1-5 Previous Goal #1: Talisha will utilize aphasia word finding strategies in conversation and structured language tasks 80% of the time independently across 3 measured sessions. Goal 1 Status: GOAL IN PROGRESS. DATA FROM 03/17/25: Pt achieved 100% acc independently naming food items during naming task (13 total items). DATA FROM 03/24/25: ST provided worksheet with 10 word finding strategies (delay, describe, association, first letter, look it up, take a break, draw it, gesture, synonyms, narrow it down) and educated Pt on how to use these strategies in conversations. Throughout session, ST observed Pt frequently straying from the topic and providing off-topic comments and stories. Pt reporting that she was not wearing her hearing aids in today's session. Pt also reporting flipping words around (shoes new) causing confusion in everyday conversation with new communication partners. Pt reporting that this is common for her family to do and that she has always flipped words. DATA FROM 03/30/25: Talisha reported using suggestions from ST from last week via writing down her questions prior to having a phone call with one of her sister's doctors. She stated this helped to not only organize her thoughts but also helped reduce her word finding errors since she had already prepped for the conversation with required vocabulary. Previous Goal #2: Talisha will show understanding of how to perform relaxation strategies to utilize in stressful situations with teachback of strategy on 3 separate opportunities. Goal 2 Status: GOAL MET. DATA FROM 03/30/25: Diaphragmatic breathing exercise incorporated throughout session when Pt attempting to list category items from memory to help focus her and reduce stress. DATA FROM 04/08/25: Talisha reported utilizing diaphragmatic exercises recently when feeling stressed on a phone call which seemed to benefit. DATA FROM 04/14/25: Talisha reported that she has been utilizing diaphragmatic exercises daily. Previous Goal #3: Talisha will complete basic to mod complex immediate, short- term, and working memory tasks with 90% acc independently across 3 measured opportunities. Goal 3 Status: GOAL IN PROGRESS. DATA FROM 04/08/25: Pt participated in immediate memory task when recalling important dates verbally produced by ST and marking them on calendar. Pt achieved 80% independently improving to 92% given 1 repetition of the events and 100% when given min verbal cues and 2 or more repetitions. Pt seemed to benefit from repeating the event aloud to herself immediately after hearing the ST. DATA FROM 04/14/25: Pt participating in daily routine activity where she was prompted to write out her daily routine in 15-20 steps. She needed min to mod prompts to complete the full routine as she was only able to independently produce 8 activities. Once provided with prompts such as, What do you do before walking the dog and eating breakfast? she was able to produce most of her daily activities. Talisha independently provided 8/20 daily activities, increasing to 16/20 once given min to mod verbal cues and prompts. DATA FROM 04/21/25: Pt participating in working memory task where she was required to listen to 6 voicemails, take notes, and then add the events to a weekly schedule worksheet. Pt able to discern and dictate information following initial presentation with 0% acc. She required all 6 voicemails to be repeated 5-6 times. Talisha increasing to 16% with voicemail presented 2x, 50% with voicemail presented 3x, and 100% with voicemail being presented 4x or more. Pt required additional support when determining what information is appropriate for the calendar vs. the to-do list. ST educated Pt on utilizing blank paper to take notes from voicemail before adding directly to calendar. Pt seemed to benefit from taking notes while listening to the first, second, third, and sometimes fourth presentation of voicemail and confirming details for the remainder of the presentations. At times, Pt still having difficulty with recall. For example, after she took notes about the animal hospital appointment, ST inquiring if Pt knew why she needed to take the dog to the animal hospital and she stated no despite listening to the voicemail 6x and it stating he had a bath appointment. Previous Goal #4: Talisha will modify environment at home via implementing internal and external memory compensatory strategies within 5 weeks' time of her initial evaluation. Goal 4 Status: GOAL IN PROGRESS. DATA FROM 03/10/25: ST introduced WRAP memory strategies to Pt (write it down, repeat it, association, picture it) Pt reported struggle to manage multiple calendars in the home when writing things down. ST recommended decreasing amount of calendars, writing in all calendars at once, and utilizing phone for reminders and digital calendar. Pt reported difficulty remembering names during spontaneous conversation, but is still making connections with names and relatives of targeted names. ST educated pt that aphasia dx is likely affecting word finding skills when remembering names, not memory. DATA FROM 03/17/25: Asked Pt to recall WRAP memory strategies discussed last week with Pt recalling 75% of them and benefited from min verbal and logical cues to improve to 100%. Pt reports utilizing WRAP memory strategy at home during the week by writing things down and making funny associations. ST offering another strategy of reading to help retain information better, but Pt reports when she reads she often has to read multiple times before remembering. DATA FROM 04/08/25: ST discussed reducing Pt's amount of calendars she uses everyday. She reported that she reduced them by 2 and now only uses 3 calendars - one in her office, a whiteboard in her kitchen, and her pocket calendar. BDAE-3 [place] Diagnostic Aphasia Examination BDAE-3 Administered: Yes BDAE-3: The BDAE-3 assesses communication in the areas of: conversational and expository speech, auditory comprehension, oral expression, reading and writing. Date: 02/19/25 Severity Level: 4 Level Detail: Some obvious loss of fluency in speech or facility of comprehension, without significant limitation of ideas expressed or form of expression. Rating Scale Profile of speech character Articulation Agility: 6 Detail: Facility at phoneme and syllable level ranges from 1 being unable to form speech sounds to 7 being never impaired Phrase length: 6 Detail: Longest occasional uninterrupted word runs Grammatical form: 6 Detail: Variety of grammatical constructions; use of grammatical mophemes: 1=nosyntactic word groupings ranging to 7 being normal range of syntax; normal facility with grammatical words Melodic Line (Prosody): 7 Detail: 1=word b word or aprosodic speech ranging to 7 being normal speech sandip Paraphasia in running speech: 6 Detail: 1 present in evrey utterance ranging to 7 s absent Word finding relative to fluency: 6 Detail: 1 is fluent but empty speech ranging to 7 as output primarily content words Summary Profile Recitation Recitation automatized sequences Percentile: 100 Summary Profile Repitition Repetition Percentile: 100 Words Percentile: 100 Sentences Percentile: 100 Summary Profile Naming Responsive Naming Percentile: 100 Aqu[place] Naming Test Percentile: 80 Special Categories Percentile: 100 Summary Profile Reading Matching cases and scripts: 100 Number matchin Picture - word matchin Oral word readin Oral sentence readin Oral sentence comprehension: 100 Sentences/Paragraph comprehension: 70 Summary Profile Writing Form: 100 Letter choice: 30 Motor faclility: 30 Primer words: 30 Regular phonics: 100 Common irregular words: 100 BDAE-3 Comments Assessment: -: Auditory Comprehension tasks were not administered during the assessm ent due to suspecting comprehension to be in tact. Pt may benefit from a follow- up with her [employer] to reassess the settings on her hearing aids. Suspect hearing deficit is affecting her ability to fully understand what is said to her. Pt even reporting that at times when she can't hear parts of a conversation she will nod and pretend like she did. ST educating that hearing affects our ability to not only participate in a conversation but also our ability to recall events (i.e., we can't remember something if we never heard it in the first place but faked it and pretended like we did). Talisha correctly identified 17/20 of the photographs from the [place] Naming Test. One of the items she erred with pronunciation of the target (e.g., unican for unicorn) but then self-corrected once she heard her production. The other two targets she benefited from phonemic cues to find the word. Talisha's overall writing skills appeared the most affected when it comes to motor facility. At times she would be hesitant on which letter would come next, start with the wrong letter, or difficulty with forming the letter. When she erred during the dictation tasks, suspect her hearing affected the two errors she made which lowered her overall percentile. She did appear to self correct when the letter formation or spelling of a target were errored, however when she misheard the dictated targets, she did not self correct these ones. The scores from this assessment minimally captured the symptoms that Talisha is reporting with regard to her expressive language skills. During conversation, Shiva storey presented with at least 10 word finding moments throughout the duration of the 60 min. assessment, which is significant. Discussed how being in stressful situations can also exacerbate word finding errors and recall. Talisha did confirm she was feeling nervous today. Discussed how word finding difficulties is a typical part of conversation, but since it is affecting her quality of life, it is appropriate to intervene and teach her relaxation strategies for the more stressful environments as well as work on utilizing word finding strategies in conversation and more structured tasks. Additionally, based on neurology's report of Talisha having difficulty with paying bills, ST would like to further assess if this is an executive functioning difficulty or a language/writing/spelling difficutly. [facility] Administered: Yes First & Second Names - Delayed recall scaled score: 13 Belongings - Delayed recal scaled score: 7 Appointments - Delayed recall scaled score: 8 Picture recognition - Delayed recall scaled score: 11 Story - Immediate recall scaled score: 15 Story - Delayed recall scaled score: 9 Face recognition - Delayed recall scaled score: 9 Route - Immediate recall scaled score: 4 Route - Delayed recall scaled score: 9 Messages - Immediate recall scaled score: 11 Messages - Delayed recall scaled score: 7 Orientation and date scaled score: 5 [place] - Immediate recall scaled score: 10 [place] - Delayed recall scaled score: 9 Index Score Sum of scaled scores: 132 General Memory index: 90 Percentile rank: 25 Additional Information Comment:: Talisha's general memory index score (standard score) is 90 which is within one standard deviation (+/- 15) below the mean (100) of what other individuals her age are scoring. The subtests that were the most challenging for her included immediate recall of the route, delayed recall of her belongings, delayed recall of the messages task, and orientation. All of these subtests were at least one standard deviation (+/-3) below the mean scaled score (10). TASK ANALYSIS: - One of the items we chose to hide for the delayed belongings task was her phone. Chcf through the assessment her phone started to ring after it was hidden in a cabinet. Pt asking if she could answer it, ST stating she could, but Talisha went to her purse to retrieve her phone vs. grabbing it from the cabinet. The phone was not retrieved nor was Talisha reminded of where the phone was originally placed. At the end of the assessment, her phone rang again, and Talisha directed ST to the cabinet she thought we put it in, however it was the wrong one. Suspect if Talisha was not reminded about her phone via it ringing, she would have forgotten about it unless prompted. - During the delayed recall of the messages task while recalling her route around the room, Pt carried the message and book with her throughout the route vs dropping them in their designated areas previously established by ST's route. - Pt's scaled score for the orientation task is likely low d/t Pt being unable to recall our current secret service agent and former president/[employer]. Overall, Pt did not appear to have difficulty with a specific area of memory (e.g., prospective memory). Pt would benefit from education and practice re: internal and external memory strategies to use at home as a preventative measure for her memory and allow for continued independence at home. Reference: Neuro-QoL instrument In past 7 days I had to read something several times to understand it: Sometimes (2-3 times) My thinking was slow: Sometimes (2-3 times) I had to work really hard to pay attention or i would make a mistake: Rarely (once) I had trouble concentrating: Rarely (once) How much DIFFICULTY do you currently reading & following complex instructions (e.g. directions for new medication: A little planning for & keeping appts that are not part of weekly routine: None managing your time to do most of your daily activities: A little learning new tasks or instructions: A little Neuro-QOL Score Raw Score: 31 T - Score: 46.0 Radiation Oncology Patient Other Other Informal Observations: -: Pt has commented to therapist about various ads on her Facebook and TV appearing as though they are targeting things she needs and could be helpful if she were to implement what they are suggesting. Suspect it could be beneficial to add in a safety awareness goal to assist in knowing how to detect a scam. Plan Plan Plan: Will recommend Pt for weekly outpatient speech therapy intervention address mild-moderate expressive aphasia and mild cognitive deficits. Pt would benefit from circumlocution training, verb network training, and immediate feedback to remedy instances of paraphasia. Pt would also benefit from cognitive training to improve memory, executive functioning, and visuospatial skills. Without skilled intervention Pt is at risk for communicating basic, medical, emergent, social wants & needs, and interacting with family/friends at home, during social interactions, and in any volunteering roles she holds. Re-evaluation was written by Director Franchise Sales, Alvina Knight, but reviewed and signed by Isabel Barajas MS, CCC-MAINTENANCE AND OPERATIONS SUPERVISOR. Recommendations Treatment Warranted: Yes Treatment Warranted: Receptive/ Expressive Language and Cognition Progress Prognosis: Good Frequency Frequency: 1x/Week Duration: 2 Months Goals that are Established Determination:: Goals will be added/modified as deemed necessary and appropriate. Therapy will be discontinued when results of re-evaluation indicate therapy is no longer needed or lack of progress has been documented. Goal #1-5 Goal #1: Talisha will utilize aphasia word finding strategies in conversation and structured language tasks 80% of the time independently across 3 measured sessions. Goal #2: Talisha will complete basic to mod complex problem solving/reasoning and safety awareness tasks with 90% acc independently across 3 measured opportunities. Goal #3: Talisha will complete basic to mod complex immediate, short-term, and working memory tasks with 90% acc independently across 3 measured opportunities. Goal #4: Talisha will modify environment at home via implementing internal and external memory compensatory strategies via self-report across 2 treatment sessions. Education Patient has Indicated that the Following Identified Educational Needs: None The Patient has indicated that they have no educational or learning abilities that may effect their care.: Yes Patient Instruction Patient Education: Diagnosis, Treatment Plan and Goals Person Taught: Patient Teaching Method: Discussion and Demonstration Response to teaching: Return Demonstration and Verbalize Understanding
--- NOTE | 2025-07-12 08:07 | HP.SP.DC ---
ST Discharge Summary Discharged: Discharge: TALISHA BARBOZA is a 74 year old female who was seen for initial cognitive-linguistic evaluation at [facility] on 02/19/2025 secondary to dx of aphasia and memory deficits. Pt attended a total of 16 sessions from initial evaluation targeting total communication, introduction to use of aphasia word finding strategies, completing executive functioning tasks, and targeting attention and memory. Throughout the time of her care, Talisha recently participated in further evaluation with a neuropsychologist in [place] where she was officially diagnosed with primary progressive aphasia. She was also started on Ritalin d/t suspected ADHD. At Pt's last tx session, she stated she felt the Ritalin was helping to calm her brain but was making her shaky -- encouraged Pt to contact PCP to discuss a different dose or trialing a different medication. Pt being discharged from speech therapy caseload on this date, 07/12/25, secondary to Pt meeting expectations for this stage of her PPA. We also discussed returning to therapy in the future after high tech augmentative alternative communication devices were explored. We discussed what to expect as her PPA progresses and why acquiring an AAC device sooner would allow for easier teaching and motor planning of the device while her cognition remains intact. Thank you for allowing me to participate the care of your Pt. Will reevaluate at Pt?s request following script from physician.
== END 2025-07-06 19:00 | disposition home or self-care (01) ==
LOC: SP 09:00
PROVIDERS: PCP Nurse Practitioner Family
DX: R47.01 Aphasia (principal); R41.3 Other amnesia
CPT/HCPCS: 92507; 96105; 97129; 97130